=== PATIENT | male | born 1945 | race Caucasian/White ===

== ENCOUNTER 2017-01-13 09:17 | Inpatient (IN) | payer OTHER ==
--- NOTE | ~2017-01-13 | CN ---
Consultation Report [facility] [address] [place]. [address] NAME: LIO LAMBERT : 43 STATUS : ADM IN [facility]#: [id number] AGE: 71 ADM/REG DATE : 01/13/17 MR#: [id number] REPORT SERV DATE: 01/23/17 DICTATED BY: GURU ABRAMS DATE: 01/23/17 REPORT STATUS : Draft TRANSCRIBED BY: MODL DATE: 01/23/17 GI CONSULT DATE OF CONSULTATION: 01/23/2017 REASON FOR CONSULTATION: Regarding elevated liver tests. HISTORY OF PRESENT ILLNESS: This is a 71-year-old man who was admitted with abdominal pain. He was found to have acute pancreatitis and has been under supportive care. His liver tests were essentially normal on admission, but then have increased over the course of his hospital stay. Ultrasound did show gallbladder sludge. CT showed pancreatitis. He currently has intermittent epigastric discomfort. It is much better than previous. He is tolerating a soft diet. Stools are normal. No blood. No GERD or dysphagia. He has used alcohol for many years essentially since age 14. He had was very active until the 1980s when he underwent Alcoholics Anonymous and was sober for four years. He then started drinking again and has been drinking consistently right up until admission heavily. He has no known history of liver disease. ALLERGIES: NONE. MEDICATIONS AT HOME: Aspirin, Lipitor, Wellbutrin, Lasix, Prinivil, Lopressor, probiotics, Nitrostat, vitamin B12, vitamin D3, and turmeric. MEDICAL HISTORY: CAD with previous stent four years ago, prostate and bladder cancer, hypertension, history of hernia repair, cystoscopy, and stent. FAMILY HISTORY: Negative for GI malignancy. SOCIAL HISTORY: Heavy alcohol as above. No tobacco. REVIEW OF SYSTEMS: A complete review of systems was obtained and negative except that noted in the history of present illness. PHYSICAL EXAMINATION: VITAL SIGNS: He is currently afebrile. Temperature is 97.9, pulse 75, respirations 20, and blood pressure 140/65. HEENT: Sclerae icteric. Pharynx is pink without exudate. NECK: Supple without lymphadenopathy. LUNGS: Clear to auscultation bilaterally. HEART: Regular rate and rhythm. S1, S2 are heard without rubs or gallops. ABDOMEN: Diminished bowel sounds. Belly is soft and mildly distended. It is nontender and benign. EXTREMITIES: No pedal edema or rash. Consultation Report [place] [address] [place]. [address] NAME: LIO LAMBERT : 43 STATUS : ADM IN [facility]#: [id number] AGE: 71 ADM/REG DATE : 01/13/17 MR#: [id number] REPORT SERV DATE: 01/23/17 DICTATED BY: GURU ABRAMS DATE: 01/23/17 REPORT STATUS : Draft TRANSCRIBED BY: MODL DATE: 01/23/17 NEUROLOGIC: Alert and oriented without focal deficit. Muscle exam is nontender. DATA: White blood cell count 16.2, hematocrit 27.9, platelets 295. INR 1.2. MCV 92.7. BUN is 61, creatinine is 2.08, bilirubin 2.0, alkaline phosphatase 165, ALT is 160, AST is 199, lipase 848, iron percent 50, ferritin 4902, B12 of 5188. Hepatitis A, B, and C are negative. CT scan reviewed shows pancreatitis. Ultrasound of the gallbladder shows gallbladder sludge, but was otherwise negative. Chest x-ray shows left lower lobe pneumonia. Blood cultures negative. Urinalysis negative. IMPRESSION: 1. Elevated liver tests, likely multifactorial, suspect underlying alcoholic hepatitis, question choledocholithiasis. 2. Pancreatitis, question due to alcohol versus biliary sludge. 3. Acute kidney injury. 4. Left lower lobe pneumonia. RECOMMENDATIONS: 1. Continue supportive care and soft diet which he is tolerating. 2. Acid suppression daily. 3. Check liver serologies. 4. Check MRCP to evaluate common bile duct. CC/ASHANTI Guru Abrams M.D. / [id number] CC: Libby Lima M.D.
--- NOTE | ~2017-01-13 | DS ---
Discharge Summary [facility] [address] [place]. [address] NAME: LIO LAMBERT : 41 STATUS : DIS IN PAT#: [id number] AGE: 71 ADM/REG DATE : 01/13/17 MR#: [id number] REPORT SERV DATE: 01/24/17 DICTATED BY: EVANEMILY TRISTA DATE: 01/24/17 REPORT STATUS : Draft TRANSCRIBED BY: MODL DATE: 01/24/17 ADMISSION DATE: 01/13/2017 DISCHARGE DATE: 01/24/2017 DISCHARGE DIAGNOSES: 1. Acute pancreatitis with systemic inflammatory response syndrome, improved. 2. Acute kidney injury on chronic kidney disease, back to his normal kidney function. 3. Biliary sludge with obstructive jaundice, seen by Dr. Abrams here. MRCP was negative. ERCP was offered, but the patient declined to have inpatient ERCP, but followup with Dr. Abrams as an outpatient for possible further evaluation. 4. Alcohol abuse. The patient has a history of 50 years of drinking problem, but he mentioned that he is seriously considering stopping alcohol drink. 5. Diabetes mellitus. 6. Elevated liver function tests and ascites. The patient was recommended staying in the hospital, inpatient care, for paracentesis on Thursday, but he declined staying here over the weekend, but the patient will follow up as an outpatient for paracentesis, order is arranged. HISTORY OF PRESENT ILLNESS: This is a 71-year-old male patient, who came to the hospital with abdominal pain. Please see dictated H and P done by Dr. Mcbride. HOSPITAL COURSE: He was admitted to the hospital with acute pancreatitis, more likely from alcohol use, but also had evaluation for biliary etiology. He was found to have a septic picture with his pancreatitis and he was admitted in the IMCU. He was also found to have renal failure on top of his chronic kidney disease. He was treated aggressively with fluid resuscitation and with empiric antibiotics, and he recovered well. He was transferred out of the unit when his kidney function and lipase numbers were much improved. Neto Laws, nurse practitioner, and myself started to resume his case when he came out of the IMCU. At that time, he was on 4 L of nasal cannula and his kidney function was recovering back to his normal, and his calcium levels also improved. After he was transferred out of the unit, he was more prominent to have an elevated liver function test and elevated bilirubin. Initial ultrasound of the gallbladder showed biliary sludge, and current finding of elevated liver function tests with bilirubinemia, GI was consulted. Dr. Abrams evaluated this patient, who ordered MRCP. The MRCP did not show the sludge and showed no dilatation of the CBD, but the patient's LFTs and bilirubin are remaining the same level. Dr. Abrams offered ERCP on Thursday, but the patient requested going home during the weekend, but he surely will follow up with him as an outpatient. Dr. Abrams said it is a reasonable plan, so he was recommended to go home with close followup as an outpatient. During this resuscitation ICU stay, he gained some fluid level, was treated with intermittent IV diuretics and while he was transferred out of here, improved. He does not require home oxygen use; however, he developed ascites along with this hospitalization. I offered paracentesis as inpatient here on Thursday, again the patient declined inpatient procedure. However, he said he surely will follow up as an outpatient. Therefore, we are Discharge Summary [address] [address] NAME: LIO LAMBERT : 41 STATUS : DIS IN PAT#: [id number] AGE: 71 ADM/REG DATE : 01/13/17 MR#: [id number] REPORT SERV DATE: 01/24/17 DICTATED BY: EMILY CARLIN DATE: 01/24/17 REPORT STATUS : Draft TRANSCRIBED BY: ASHANTI DATE: 01/24/17 going to make an outpatient paracentesis order in two days, and the order is written. He is recovered and he said he is not going to drink any more. He is fully aware of current care plan and followup plan, and the patient will be discharged to home with followup plan with Dr. Abrams and outpatient paracentesis in two days. DISCHARGE MEDICATIONS: Aspirin 81 mg once a day, Lipitor 80 mg once at night, Wellbutrin 150 mg once a day, Lasix 40 mg twice a day, Lopressor 25 mg twice a day, Prinivil is on hold due to renal issue at the current point. Continue the probiotics and Nitrostat as needed. DISPOSITION: The patient is discharged to home with followup planned on Thursday with paracentesis at Dr. Abrams's office. TIME SPENT: More than 30 minutes on education and coordination. EKL/MODL Emily Carlin M.D. / [id number] CC: Libby Lima M.D. Chad Charapata, M.D.
--- NOTE | ~2017-01-13 | HP ---
History And Physical [address] [place]. [address] NAME: LIO LAMBERT : 41 STATUS : ADM IN [facility]#: [id number] AGE: 71 ADM/REG DATE : 01/13/17 MR#: [id number] REPORT SERV DATE: 01/20/17 DICTATED BY: DB BURGESS DATE: 01/20/17 REPORT STATUS : Draft TRANSCRIBED BY: ASHANTI DATE: 01/20/17 DATE OF ADMISSION: 01/13/2017 CHIEF COMPLAINT: Abdominal pain. HISTORY OF PRESENT ILLNESS: The patient is a very pleasant 71-year-old white male with a history of prostate bladder cancer and hypertension, who presented to the ER complaining of sudden onset of midepigastric abdominal pain, severe in nature, started initially last evening, continued in the morning and finally, he sought care. He had some nausea. He has never had pain like this before. He did not have any documented fevers. He did not notice any blood in his stool. PAST MEDICAL HISTORY: 1. CAD. 2. Status post PCI. 3. Prostate and bladder CA. 4. Hypertension. 5. History of hernia repair. PAST SURGICAL HISTORY: He has had a hernia repair and a cystoscopy and stenting related to his bladder cancer. FAMILY HISTORY: There is no history of chronic kidney disease or previous pancreatitis. SOCIAL HISTORY: He admits to drinking four 16-ounce beers per day. He is . His is at bedside. He has a distant history of tobacco use, but has not used recently. ALLERGIES: NO KNOWN DRUG ALLERGIES. HOME MEDICATIONS: Reviewed and attached. REVIEW OF SYSTEMS: A full ten-point review of systems obtained. Pertinent positives mentioned in the HPI. PHYSICAL EXAMINATION: VITAL SIGNS: BP 123/69, temperature was 97.3, pulse was in the 90s. Sats were 92%. GENERAL: Overweight white male, in no apparent distress. HEENT: Normocephalic, atraumatic. Throat is clear. NECK: Supple. HEART: Regular rate and rhythm. LUNGS: Grossly clear. ABDOMEN: Mildly distended and tender in all four quadrants, particularly in the epigastric region. EXTREMITIES: Warm and dry. SKIN: Intact without rash or lesion. NEURO: He is alert. He is oriented to person, place, and time. He moves all four History And Physical [address] [place]. [address] NAME: LIO LAMBERT : 43 STATUS : ADM IN [facility]#: [id number] AGE: 71 ADM/REG DATE : 01/13/17 MR#: [id number] REPORT SERV DATE: 01/20/17 DICTATED BY: DB BURGESS DATE: 01/20/17 REPORT STATUS : Draft TRANSCRIBED BY: ASHANTI DATE: 01/20/17 extremities appropriately. LABORATORY AND X-RAY: CBC: H and H are 15 and 44, white count 14.7, and platelets 269. Lactate is 3.7. CMP: Sodium 141, potassium 3.7, chloride 100, CO2 28. BUN and creatinine 22 and 1.78. Glucose 202. Alkaline phosphatase 165. Lipase 32,349. ALT is 29. Total bilirubin is 0.5. Alkaline phosphatase is 165. CT of the abdomen and pelvis showed hepatic steatosis and prominent peripancreatic fat stranding consistent with pancreatitis. Procalcitonin was 0.3. Lipid panel showed triglycerides of 147. Chest x-ray was essentially clear other than some new atelectasis in the posterior bibasilar areas. ASSESSMENT/PLAN: 1. Acute pancreatitis, certainly could be due to alcohol use, almost also consider gallstone disease and also hypertriglyceridemia; however, his triglycerides looked good. We would recommend doing additional imaging of the right upper quadrant ultrasound. We will keep him n.p.o., provide aggressive fluid resuscitation, IV analgesics, and antiemetics. Hopefully with supportive measures, he will improve. I did however beauty counselor the patient about the risk of developing severe pancreatitis. 2. Mild acute kidney injury, likely related to volume depletion and ongoing pancreatitis. We will hydrate aggressively overnight. Follow kidney function. Hold any antihypertensives and renal toxic drugs. 3. Alcohol abuse. We will place on alcohol withdrawal protocol, given the patient has history of drinking four 16-ounce beers daily just to make sure that he does not go through withdrawal, provide IV thiamine and frequent reassessment of his CIWA score. 4. Deep venous thrombosis prophylaxis with subcutaneous Lovenox and subcutaneous heparin. 5. Disposition, pending above. MARLEEN/ASHANTI Db Burgess M.D. / [id number] CC: Libby He M.D.
--- NOTE | ~2017-01-13 | CN ---
Consultation Report [facility] [address] [place]. [address] NAME: LIO LAMBERT : 41 STATUS : ADM IN [facility]#: [id number] AGE: 71 ADM/REG DATE : 01/13/17 MR#: [id number] REPORT SERV DATE: 01/15/17 DICTATED BY: DATE: REPORT STATUS : Draft TRANSCRIBED BY: MODL DATE: 01/15/17 CONSULTATION REPORT DATE OF CONSULTATION: REASON FOR CONSULTATION: Acute kidney injury. HISTORY OF PRESENT ILLNESS: Mr. Lambert is a 71-year-old white male with a history of prostate and bladder cancer as well as hypertension who presented to the emergency department with abdominal pain, was found to have acute pancreatitis. He does have some degree of CKD and it looks like his baseline creatinine is 1.2 to 1.5. He presented with a creatinine of 1.8 and it has steadily increased today up to 4.2. He has decreasing urine output. It is noted that over the last 48 hours he has had a significant drop in his blood pressure down into the 90s. He had a Zee placed right as we were seeing the patient and he has minimal urine output, and only had 200 over the last 24 hours. His calcium is low at 6.9. He has been getting IV fluids since admission with decrease in urine output. PAST MEDICAL HISTORY: Coronary artery disease, status post stent; prostate and bladder cancer, status post radiation therapy; hypertension; and hernia repair. FAMILY MEDICAL HISTORY: Negative for end-stage renal disease, but positive for prostate issues. SOCIAL HISTORY: He is , lives with . He was working here for the [employer]. He has a distant history of tobacco use, has quit. Drinks four beers per day. ALLERGIES: NONE. MEDICATIONS: At time of consultation; aspirin, Lipitor, Wellbutrin, folic acid, heparin, NovoLog, Lopressor, Theragran, Protonix, IV fluids at 125. REVIEW OF SYSTEMS: A 12-point review of systems was obtained, negative with the exception of that in the HPI. PHYSICAL EXAMINATION: VITAL SIGNS: Temp 97.5, blood pressure 102/52, pulse 82, respiratory rate 18, and O2 saturation is 92% on 3.5 liters. GENERAL: This is a pleasant, cooperative, overweight white male who is awake, alert, and oriented x3. In no acute distress. Answers question appropriately. HEENT: Normocephalic and atraumatic. Conjunctivae are clear. Sclerae are anicteric. Pupils are equal and round. Oral mucosa is moist. NECK: Thick. No lymphadenopathy. RESPIRATIONS: Even and unlabored, globally decreased. HEART: Rate is regular. No murmur, rub, or gallop. Consultation Report [place] [address] [place]. [address] NAME: LIO LAMBERT : 43 STATUS : ADM IN [facility]#: [id number] AGE: 71 ADM/REG DATE : 01/13/17 MR#: [id number] REPORT SERV DATE: 01/15/17 DICTATED BY: DATE: REPORT STATUS : Draft TRANSCRIBED BY: MODL DATE: 01/15/17 ABDOMEN: Obese. His bowel sounds are active. No masses. No hepatosplenomegaly. No CVA tenderness. BACK: Within normal limits. EXTREMITIES: He has no edema, cyanosis, or clubbing. SKIN: Warm, dry, and intact. No unusual rashes or skin lesions. NEURO: No focal deficits. Mood and affect, pleasant and appropriate. PERTINENT LABORATORY DATA AND X-RAY FINDINGS: Chest x-ray shows an early pneumonia. Sodium 140, potassium 4.5, chloride 105, CO2 of 22, BUN of 53, creatinine of 4.2, and calcium of 6.9. WBCs 13, H and H 13 and 40, and platelets 202,000. IMPRESSION: 1. Acute kidney injury. 2. Chronic kidney disease. 3. Hypotension. 4. Acute pancreatitis. PLAN: Acute kidney injury felt secondary to ATN from his decreased blood pressure in the setting of his pancreatitis. We will plan to discontinue current IV fluids, diuretic challenge. LUIS inhibitor was already held. Follow I's and O's. He has a Zee catheter in place. Urine studies. If we are seeing no improvement in urine output over the next 24 hours to 48, the patient may need renal replacement therapy, but there is no indication for such at this time. We will follow along with you. Avoid nephrotoxins as able. Further orders and recommendations pending clinical course. Thank you for your consultation. YIFAN/ASHANTI FLAKITA Hardin / [id number] CC: MD Ivet Valle II, M.D.
[2017-01-13 08:18] LABS: BASOPHILS 0.1 %; BASOPHILS ABSOLUTE 0.02 10/3/uL (0.0-0.16); EOSINOPHILS 0.1 %; EOSINOPHILS ABSOLUTE 0.02 10/3/uL (0.0-0.53); ER CBC TAT 0 Hrs 08 Mins; HEMATOCRIT 44.6 % (40.0-51.0); IMMATURE GRANULOCYTES ABSOLUTE 0.14 10/3/uL (0.0-0.11); LYMPHOCYTES 10.4 %; LYMPHOCYTES ABSOLUTE 1.52 10/3/uL (0.67-4.30); MANUAL DIFF NO %; MEAN CORPUS HGB CONC 33.6 g/dL (32.0-36.0); MEAN CORPUSCULAR HEMOGLOB 31.9 pg (26.0-34.0); MEAN CORPUSCULAR VOLUME 94.9 fL (80-100); MONOCYTES 6.1 %; MONOCYTES ABSOLUTE 0.89 10/3/uL (0.21-1.20); NEUTROPHILS 82.3 %; NEUTROPHILS ABSOLUTE 12.09 10/3/uL (2.02-8.40); PLATELET COUNT 269 10/3/uL (150-400); RBC DISTRIBUTION WIDTH 14.1 % (12.0-16.0); WHITE BLOOD CELLS 14.7 10/3/uL (4.5-10.5)
[2017-01-13 08:34] LABS: BUN (BLOOD UREA NITROGEN) 22 MG/DL (6-23); CALCIUM, SERUM 9.2 MG/DL (8.5-10.4); CHLORIDE, SERUM 100 MMOL/L (96-112); CO2 (CARBON DIOXIDE) 28 MMOL/L (24-34); CREATININE 1.78 MG/DL (0.70-1.30); GFR AFRICAN AMERICAN 43 ML/MIN (>=60); GFR NON AFRICAN AMERICAN 37 ML/MIN (>=60); POTASSIUM, SERUM 3.7 MMOL/L (3.5-5.3); SGOT(AST) 19 U/L (5-40); SGPT(ALT) 29 U/L (5-65); SODIUM, SERUM 141 MMOL/L (135-148); TOTAL BILIRUBIN 0.5 MG/DL (0-1.2); TOTAL PROTEIN 7.5 G/DL (6.0-8.5)
[2017-01-13 08:44] LABS: A/G RATIO 1.1 (0.7-1.9); ALKALINE PHOSPHATASE 165 U/L (45-117); GLOBULIN 3.5 G/DL (2.5-4.1); GLUCOSE, SERUM 202 MG/DL (60-99)
[~2017-01-13 09:17] MED LIST: ASA5GR PO; CELEXA40 MG PO; L40 PO; LIPITOR80 MG PO; TOPXL25 PO
[2017-01-13] MEDS ORDERED: LIPITOR80 MG PO (09:40)
[2017-01-13] MEDS ORDERED: L40 PO (09:41)
[2017-01-13] MEDS ORDERED: LOP25 PO (09:41)
[2017-01-13] MEDS ORDERED: PRIN5 PO (09:42)
[2017-01-13] MEDS ORDERED: ASAB PO (09:43)
[2017-01-13] MEDS ORDERED: VITAMIN B-12 PO (09:43)
[2017-01-13] MEDS ORDERED: VITAMIN D3 PO (09:44)
[2017-01-13] MEDS ORDERED: PROBIOTIC PO (09:45)
[2017-01-13] MEDS ORDERED: TUMERIC SUPPLEMENT PO (09:45)
[2017-01-13] MEDS ORDERED: NITROSTAT0.4 MG SL (09:51)
[2017-01-13] MEDS ORDERED: WELLSR150 PO (10:00)
[2017-01-13 15:17] LABS: CHOL/HDL RATIO(NOT ORDER) 4.2 (0-5)
[2017-01-13 16:03] LABS: PROCALCITONIN 0.3 ng/mL (<0.5)
[2017-01-13 22:10] LABS: ASCORBIC ACID (UR NOT ORDER) NEG (NEG); BILIRUBIN, URINE NEGATIVE (NEG); KETONE, URINE TRACE MG/DL (NEG); LEUKOCYTE ESTERASE(NOT OR NEG (NEG); WBC (NOT ORDERED) (RFLEX) 1 (0-5)
[2017-01-14 05:41] LABS: BASOPHILS 0.1 %; BASOPHILS ABSOLUTE 0.01 10/3/uL (0.0-0.16); EOSINOPHILS 0 %; HEMATOCRIT 45.2 % (40.0-51.0); HEMOGLOBIN 15.1 g/dL (13.6-17.8); IMMATURE GRANULOCYTES 0.4 %; IMMATURE GRANULOCYTES ABSOLUTE 0.06 10/3/uL (0.0-0.11); LYMPHOCYTES 6.1 %; LYMPHOCYTES ABSOLUTE 0.86 10/3/uL (0.67-4.30); MEAN CORPUS HGB CONC 33.4 g/dL (32.0-36.0); MEAN CORPUSCULAR HEMOGLOB 31.9 pg (26.0-34.0); MEAN CORPUSCULAR VOLUME 95.4 fL (80-100); MEAN PLATELET VOLUME 9.8 fL (9.2-13.0); MONOCYTES 7.6 %; MONOCYTES ABSOLUTE 1.07 10/3/uL (0.21-1.20); NEUTROPHILS 85.8 %; NEUTROPHILS ABSOLUTE 12.04 10/3/uL (2.02-8.40); PLATELET COUNT 236 10/3/uL (150-400); RBC DISTRIBUTION WIDTH 14.7 % (12.0-16.0); RED CELL COUNT 4.74 10/6/uL (4.7-6.1)
[2017-01-14 05:42] LABS: MANUAL DIFF NO %
[2017-01-14 05:59] LABS: A/G RATIO 0.9 (0.7-1.9); ALBUMIN 3.2 G/DL (3.5-5.0); ALKALINE PHOSPHATASE 125 U/L (45-117); BUN (BLOOD UREA NITROGEN) 36 MG/DL (6-23); CALCIUM, SERUM 7.7 MG/DL (8.5-10.4); CHLORIDE, SERUM 108 MMOL/L (96-112); CO2 (CARBON DIOXIDE) 23 MMOL/L (24-34); GFR AFRICAN AMERICAN 30 ML/MIN (>=60); GFR NON AFRICAN AMERICAN 26 ML/MIN (>=60); GLOBULIN 3.6 G/DL (2.5-4.1); GLUCOSE, SERUM 124 MG/DL (60-99); POTASSIUM, SERUM 4.9 MMOL/L (3.5-5.3); SGOT(AST) 18 U/L (5-40); SGPT(ALT) 23 U/L (5-65); SODIUM, SERUM 142 MMOL/L (135-148); TOTAL BILIRUBIN 0.7 MG/DL (0-1.2); TOTAL PROTEIN 6.8 G/DL (6.0-8.5)
[2017-01-15 06:23] LABS: BASOPHILS 0.1 %; BASOPHILS ABSOLUTE 0.01 10/3/uL (0.0-0.16); EOSINOPHILS 0 %; HEMATOCRIT 40.7 % (40.0-51.0); HEMOGLOBIN 13.4 g/dL (13.6-17.8); IMMATURE GRANULOCYTES 0.3 %; IMMATURE GRANULOCYTES ABSOLUTE 0.04 10/3/uL (0.0-0.11); LYMPHOCYTES 6.8 %; LYMPHOCYTES ABSOLUTE 0.88 10/3/uL (0.67-4.30); MEAN CORPUS HGB CONC 32.9 g/dL (32.0-36.0); MEAN CORPUSCULAR HEMOGLOB 31.9 pg (26.0-34.0); MEAN CORPUSCULAR VOLUME 96.9 fL (80-100); MONOCYTES 9.2 %; MONOCYTES ABSOLUTE 1.19 10/3/uL (0.21-1.20); NEUTROPHILS 83.6 %; NEUTROPHILS ABSOLUTE 10.85 10/3/uL (2.02-8.40); NUCLEATED RED BLOOD CELLS 0.2 /100WBC (0-0); PLATELET COUNT 210 10/3/uL (150-400)
[2017-01-15 06:24] LABS: MANUAL DIFF NO %
[2017-01-15 06:26] LABS: CHLORIDE, SERUM 105 MMOL/L (96-112); CO2 (CARBON DIOXIDE) 22 MMOL/L (24-34); GLUCOSE, SERUM 118 MG/DL (60-99); POTASSIUM, SERUM 4.5 MMOL/L (3.5-5.3); SODIUM, SERUM 140 MMOL/L (135-148)
[2017-01-15 06:30] LABS: BUN (BLOOD UREA NITROGEN) 53 MG/DL (6-23); CALCIUM, SERUM 6.9 MG/DL (8.5-10.4); CREATININE 4.21 MG/DL (0.70-1.30); GFR AFRICAN AMERICAN 15 ML/MIN (>=60); GFR NON AFRICAN AMERICAN 13 ML/MIN (>=60)
[2017-01-15 15:15] LABS: ASCORBIC ACID (UR NOT ORDER) NEG (NEG); BILIRUBIN, URINE NEGATIVE (NEG); KETONE, URINE NEGATIVE (NEG); LEUKOCYTE ESTERASE(NOT OR NEG (NEG); WBC (NOT ORDERED) (RFLEX) 6 (0-5)
[2017-01-16 07:15] LABS: BASOPHILS 0.1 %; BASOPHILS ABSOLUTE 0.01 10/3/uL (0.0-0.16); EOSINOPHILS 0.1 %; EOSINOPHILS ABSOLUTE 0.01 10/3/uL (0.0-0.53); HEMOGLOBIN 11.4 g/dL (13.6-17.8); IMMATURE GRANULOCYTES 0.4 %; IMMATURE GRANULOCYTES ABSOLUTE 0.04 10/3/uL (0.0-0.11); LYMPHOCYTES 5.6 %; LYMPHOCYTES ABSOLUTE 0.56 10/3/uL (0.67-4.30); MEAN CORPUSCULAR HEMOGLOB 32.3 pg (26.0-34.0); MEAN PLATELET VOLUME 9.7 fL (9.2-13.0); MONOCYTES 10.8 %; MONOCYTES ABSOLUTE 1.08 10/3/uL (0.21-1.20); PLATELET COUNT 187 10/3/uL (150-400); RBC DISTRIBUTION WIDTH 14.7 % (12.0-16.0); RED CELL COUNT 3.53 10/6/uL (4.7-6.1)
[2017-01-16 07:17] LABS: HEMATOCRIT 32.9 % (40.0-51.0); MEAN CORPUS HGB CONC 34.7 g/dL (32.0-36.0); MEAN CORPUSCULAR VOLUME 93.2 fL (80-100)
[2017-01-16 07:18] LABS: INTERNATIONAL NORMAL RATI 1.2 UNITS (-); MANUAL DIFF NO %; PROTIME (NOT ORD) 15.1 SEC (12.0-14.5)
[2017-01-16 07:25] LABS: ALBUMIN 3.2 G/DL (3.5-5.0); BUN (BLOOD UREA NITROGEN) 62 MG/DL (6-23); CALCIUM, SERUM 6.6 MG/DL (8.5-10.4); CHLORIDE, SERUM 101 MMOL/L (96-112); CO2 (CARBON DIOXIDE) 22 MMOL/L (24-34); CREATININE 4.53 MG/DL (0.70-1.30); GFR AFRICAN AMERICAN 14 ML/MIN (>=60); GFR NON AFRICAN AMERICAN 12 ML/MIN (>=60); GLUCOSE, SERUM 116 MG/DL (60-99); PHOSPHORUS, SERUM 2.8 MG/DL (2.5-4.5); POTASSIUM, SERUM 3.9 MMOL/L (3.5-5.3); SODIUM, SERUM 137 MMOL/L (135-148)
[2017-01-16 07:42] LABS: INSTRUMENT SERIAL # 11843; PCO2 (CO2 TENSION) 30 MMHG (35-45); PO2 (O2 TENSION) 52 MMHG (79-93); pH 7.45 (7.37-7.43)
[2017-01-16 07:43] LABS: ALLENS TEST Pos; BE (BASE EXCESS) -2.7 MEQ/L (0 +/- 2.5); CARBOXYHEMOGLOBIN 0.3 % (0-3); DEVICE NC; HCO3 (ACTUAL BICARBONATE) 20.4 MEQ/L (23-27); HEMOBLOGIN CONTENT 12.2 G/DL (14-18); METHEMOGLOBIN 0.5 % (0-3); O2 CONTENT 14.8 VOL% (18-24); OPERATOR ID 13624; SAMPLE Arterial
[2017-01-16 11:45] LABS: PROCALCITONIN 6.64 ng/mL (<0.5)
[2017-01-16 14:44] LABS: A/G RATIO 0.9 (0.7-1.9); ALBUMIN 3.3 G/DL (3.5-5.0); BUN (BLOOD UREA NITROGEN) 65 MG/DL (6-23); CALCIUM, SERUM 7.3 MG/DL (8.5-10.4); CHLORIDE, SERUM 102 MMOL/L (96-112); CO2 (CARBON DIOXIDE) 23 MMOL/L (24-34); CREATININE 4.64 MG/DL (0.70-1.30); GFR AFRICAN AMERICAN 13 ML/MIN (>=60); GFR NON AFRICAN AMERICAN 12 ML/MIN (>=60); GLOBULIN 3.5 G/DL (2.5-4.1); GLUCOSE, SERUM 114 MG/DL (60-99); POTASSIUM, SERUM 3.8 MMOL/L (3.5-5.3); SGOT(AST) 30 U/L (5-40); SGPT(ALT) 20 U/L (5-65); SODIUM, SERUM 137 MMOL/L (135-148); TOTAL PROTEIN 6.8 G/DL (6.0-8.5)
[2017-01-16 14:46] LABS: ALKALINE PHOSPHATASE 106 U/L (45-117); TOTAL BILIRUBIN 1.3 MG/DL (0-1.2)
[2017-01-17 05:09] LABS: ALBUMIN 3.4 G/DL (3.5-5.0); ALKALINE PHOSPHATASE 99 U/L (45-117); CHLORIDE, SERUM 99 MMOL/L (96-112); CO2 (CARBON DIOXIDE) 22 MMOL/L (24-34); GLUCOSE, SERUM 115 MG/DL (60-99); INDIRECT BILIRUBIN(NOT ORDER) 0.9 MG/DL (0.1-0.9); PHOSPHORUS, SERUM 3.4 MG/DL (2.5-4.5); POTASSIUM, SERUM 3.3 MMOL/L (3.5-5.3); SGOT(AST) 33 U/L (5-40); SGPT(ALT) 25 U/L (5-65); SODIUM, SERUM 135 MMOL/L (135-148); TOTAL BILIRUBIN 1.5 MG/DL (0-1.2); TOTAL PROTEIN 6.7 G/DL (6.0-8.5)
[2017-01-17 05:10] LABS: BUN (BLOOD UREA NITROGEN) 72 MG/DL (6-23); CALCIUM, SERUM 6.7 MG/DL (8.5-10.4); CREATININE 5.45 MG/DL (0.70-1.30); DIRECT BILIRUBIN 0.6 MG/DL (0.0-0.4); GFR AFRICAN AMERICAN 11 ML/MIN (>=60); GFR NON AFRICAN AMERICAN 10 ML/MIN (>=60)
[2017-01-17 05:11] LABS: BASOPHILS 0.1 %; BASOPHILS ABSOLUTE 0.01 10/3/uL (0.0-0.16); EOSINOPHILS 0.3 %; EOSINOPHILS ABSOLUTE 0.03 10/3/uL (0.0-0.53); HEMATOCRIT 30.6 % (40.0-51.0); HEMOGLOBIN 10.6 g/dL (13.6-17.8); LYMPHOCYTES 7.8 %; LYMPHOCYTES ABSOLUTE 0.75 10/3/uL (0.67-4.30); MEAN CORPUS HGB CONC 34.6 g/dL (32.0-36.0); MEAN CORPUSCULAR HEMOGLOB 31.9 pg (26.0-34.0); MEAN CORPUSCULAR VOLUME 92.2 fL (80-100); MEAN PLATELET VOLUME 9.8 fL (9.2-13.0); MONOCYTES 10.1 %; MONOCYTES ABSOLUTE 0.97 10/3/uL (0.21-1.20); NEUTROPHILS 80.7 %; NEUTROPHILS ABSOLUTE 7.74 10/3/uL (2.02-8.40); PLATELET COUNT 202 10/3/uL (150-400); RBC DISTRIBUTION WIDTH 14.6 % (12.0-16.0); RED CELL COUNT 3.32 10/6/uL (4.7-6.1); WHITE BLOOD CELLS 9.6 10/3/uL (4.5-10.5)
[2017-01-17 05:12] LABS: MANUAL DIFF NO %
[2017-01-18 04:39] LABS: HEMOGLOBIN 9.4 g/dL (13.6-17.8); MEAN CORPUS HGB CONC 35.1 g/dL (32.0-36.0); MEAN CORPUSCULAR HEMOGLOB 31.9 pg (26.0-34.0); MEAN CORPUSCULAR VOLUME 90.8 fL (80-100); MEAN PLATELET VOLUME 9.6 fL (9.2-13.0); PLATELET COUNT 178 10/3/uL (150-400); RBC DISTRIBUTION WIDTH 15.3 % (12.0-16.0); RED CELL COUNT 2.95 10/6/uL (4.7-6.1); WHITE BLOOD CELLS 9.1 10/3/uL (4.5-10.5)
[2017-01-18 04:49] LABS: ALBUMIN 3.3 G/DL (3.5-5.0); ALKALINE PHOSPHATASE 101 U/L (45-117); CALCIUM, SERUM 7.2 MG/DL (8.5-10.4); CHLORIDE, SERUM 100 MMOL/L (96-112); CO2 (CARBON DIOXIDE) 19 MMOL/L (24-34); DIRECT BILIRUBIN 0.5 MG/DL (0.0-0.4); GLUCOSE, SERUM 120 MG/DL (60-99); INDIRECT BILIRUBIN(NOT ORDER) 0.8 MG/DL (0.1-0.9); POTASSIUM, SERUM 3.5 MMOL/L (3.5-5.3); SGOT(AST) 40 U/L (5-40); SGPT(ALT) 35 U/L (5-65); SODIUM, SERUM 135 MMOL/L (135-148); TOTAL BILIRUBIN 1.3 MG/DL (0-1.2); TOTAL PROTEIN 6.3 G/DL (6.0-8.5)
[2017-01-18 04:51] LABS: HEMATOCRIT 26.8 % (40.0-51.0); MANUAL DIFF YES %
[2017-01-18 04:53] LABS: BUN (BLOOD UREA NITROGEN) 78 MG/DL (6-23); CREATININE 6.18 MG/DL (0.70-1.30); GFR AFRICAN AMERICAN 10 ML/MIN (>=60); GFR NON AFRICAN AMERICAN 8 ML/MIN (>=60); PHOSPHORUS, SERUM 4.8 MG/DL (2.5-4.5)
[2017-01-18 05:55] LABS: BAND NEUTROPHILS 16 %; EOSINOPHILS 2 %; EOSINOPHILS ABSOLUTE (CALC) 0.18 10/3/uL (0.0-0.53); IMMATURE GRANS ABSOLUTE (CALC) 0.18 10/3/uL (0.0-0.11); LYMPHOCYTES 5 %; LYMPHOCYTES ABSOLUTE (CALC) 0.46 10/3/uL (0.67-4.30); METAMYELOCYTES 2 %; MONOCYTES 11 %; NEUTROPHILS ABSOLUTE (CALC) 7.28 10/3/uL (2.02-8.40); PLATELET ESTIMATE ADQ (ADEQUATE); POLYCHROMASIA 1+ (2-5/OIF) (0-1/OIF); SEGMENTED NEUTROPHIL (0) 64 %; TEARDROP SHAPED RBCS OCC (0-2/OIF); TOTAL NUCLEATED CELLS 100; TOXIC GRANULATION 1+; VACUOLATED NEUTROPHILES OCC
[2017-01-19 05:53] LABS: BASOPHILS 0.1 %; BASOPHILS ABSOLUTE 0.02 10/3/uL (0.0-0.16); EOSINOPHILS 0.9 %; EOSINOPHILS ABSOLUTE 0.12 10/3/uL (0.0-0.53); HEMOGLOBIN 10.6 g/dL (13.6-17.8); IMMATURE GRANULOCYTES 2.6 %; IMMATURE GRANULOCYTES ABSOLUTE 0.36 10/3/uL (0.0-0.11); LYMPHOCYTES 3.5 %; LYMPHOCYTES ABSOLUTE 0.49 10/3/uL (0.67-4.30); MEAN CORPUS HGB CONC 34.9 g/dL (32.0-36.0); MEAN CORPUSCULAR HEMOGLOB 31.7 pg (26.0-34.0); MEAN PLATELET VOLUME 9.7 fL (9.2-13.0); MONOCYTES 7.6 %; MONOCYTES ABSOLUTE 1.07 10/3/uL (0.21-1.20); NEUTROPHILS 85.3 %; RBC DISTRIBUTION WIDTH 15.3 % (12.0-16.0); RED CELL COUNT 3.34 10/6/uL (4.7-6.1)
[2017-01-19 06:06] LABS: HEMATOCRIT 30.4 % (40.0-51.0); MANUAL DIFF NO %; PLATELET COUNT 244 10/3/uL (150-400); WHITE BLOOD CELLS 14.1 10/3/uL (4.5-10.5)
[2017-01-19 06:17] LABS: A/G RATIO 0.9 (0.7-1.9); CHLORIDE, SERUM 103 MMOL/L (96-112); CO2 (CARBON DIOXIDE) 16 MMOL/L (24-34); GLOBULIN 3.4 G/DL (2.5-4.1); GLUCOSE, SERUM 122 MG/DL (60-99); POTASSIUM, SERUM 3.3 MMOL/L (3.5-5.3); SGOT(AST) 64 U/L (5-40); SGPT(ALT) 47 U/L (5-65); SODIUM, SERUM 138 MMOL/L (135-148); TOTAL BILIRUBIN 1.5 MG/DL (0-1.2); TOTAL PROTEIN 6.4 G/DL (6.0-8.5)
[2017-01-19 06:18] LABS: ALKALINE PHOSPHATASE 119 U/L (45-117); BUN (BLOOD UREA NITROGEN) 82 MG/DL (6-23); GFR AFRICAN AMERICAN 11 ML/MIN (>=60); GFR NON AFRICAN AMERICAN 9 ML/MIN (>=60)
[2017-01-20 04:40] LABS: HEMATOCRIT 28.2 % (40.0-51.0); MANUAL DIFF YES %; MEAN CORPUS HGB CONC 35.5 g/dL (32.0-36.0); MEAN CORPUSCULAR HEMOGLOB 31.8 pg (26.0-34.0); MEAN CORPUSCULAR VOLUME 89.8 fL (80-100); MEAN PLATELET VOLUME 9.5 fL (9.2-13.0); PLATELET COUNT 258 10/3/uL (150-400); RBC DISTRIBUTION WIDTH 15.3 % (12.0-16.0); RED CELL COUNT 3.14 10/6/uL (4.7-6.1); WHITE BLOOD CELLS 15.8 10/3/uL (4.5-10.5)
[2017-01-20 04:51] LABS: ALBUMIN 2.5 G/DL (3.5-5.0); CALCIUM, SERUM 8.1 MG/DL (8.5-10.4); CHLORIDE, SERUM 108 MMOL/L (96-112); CO2 (CARBON DIOXIDE) 19 MMOL/L (24-34); GLUCOSE, SERUM 137 MG/DL (60-99); POTASSIUM, SERUM 3.1 MMOL/L (3.5-5.3); SODIUM, SERUM 143 MMOL/L (135-148)
[2017-01-20 04:53] LABS: BUN (BLOOD UREA NITROGEN) 74 MG/DL (6-23); CREATININE 4.01 MG/DL (0.70-1.30); GFR AFRICAN AMERICAN 16 ML/MIN (>=60); GFR NON AFRICAN AMERICAN 14 ML/MIN (>=60); PHOSPHORUS, SERUM 3.6 MG/DL (2.5-4.5)
[2017-01-20 05:16] LABS: BAND NEUTROPHILS 15 %; EOSINOPHILS 1 %; EOSINOPHILS ABSOLUTE (CALC) 0.16 10/3/uL (0.0-0.53); IMMATURE GRANS ABSOLUTE (CALC) 0.16 10/3/uL (0.0-0.11); LYMPHOCYTES 1 %; LYMPHOCYTES ABSOLUTE (CALC) 0.16 10/3/uL (0.67-4.30); METAMYELOCYTES 1 %; MONOCYTES 2 %; MONOCYTES ABSOLUTE (CALC) 0.32 10/3/uL (0.21-1.20); NEUTROPHILS ABSOLUTE (CALC) 15.01 10/3/uL (2.02-8.40); PLATELET ESTIMATE ADQ (ADEQUATE); SEGMENTED NEUTROPHIL (0) 80 %; TOTAL NUCLEATED CELLS 100
[2017-01-20 05:17] LABS: SPHEROCYTES OCC (0-2/OIF)
[2017-01-21 04:45] LABS: HEMATOCRIT 29.6 % (40.0-51.0); HEMOGLOBIN 10.5 g/dL (13.6-17.8); MEAN CORPUS HGB CONC 35.5 g/dL (32.0-36.0); MEAN CORPUSCULAR VOLUME 90.2 fL (80-100); MEAN PLATELET VOLUME 9.2 fL (9.2-13.0); PLATELET COUNT 281 10/3/uL (150-400); RBC DISTRIBUTION WIDTH 15.3 % (12.0-16.0); RED CELL COUNT 3.28 10/6/uL (4.7-6.1); WHITE BLOOD CELLS 16.6 10/3/uL (4.5-10.5)
[2017-01-21 04:48] LABS: MANUAL DIFF YES %
[2017-01-21 04:57] LABS: ALBUMIN 2.3 G/DL (3.5-5.0); CALCIUM, SERUM 8.3 MG/DL (8.5-10.4); CHLORIDE, SERUM 109 MMOL/L (96-112); CO2 (CARBON DIOXIDE) 21 MMOL/L (24-34); GFR AFRICAN AMERICAN 25 ML/MIN (>=60); GFR NON AFRICAN AMERICAN 22 ML/MIN (>=60); GLUCOSE, SERUM 143 MG/DL (60-99); PHOSPHORUS, SERUM 2.8 MG/DL (2.5-4.5); POTASSIUM, SERUM 3.5 MMOL/L (3.5-5.3); SODIUM, SERUM 143 MMOL/L (135-148)
[2017-01-21 05:02] LABS: BUN (BLOOD UREA NITROGEN) 61 MG/DL (6-23); CREATININE 2.75 MG/DL (0.70-1.30)
[2017-01-21 05:28] LABS: BAND NEUTROPHILS 5 %; EOSINOPHILS 1 %; EOSINOPHILS ABSOLUTE (CALC) 0.17 10/3/uL (0.0-0.53); LYMPHOCYTES 2 %; LYMPHOCYTES ABSOLUTE (CALC) 0.33 10/3/uL (0.67-4.30); MONOCYTES 6 %; NEUTROPHILS ABSOLUTE (CALC) 15.11 10/3/uL (2.02-8.40); PLATELET ESTIMATE ADQ (ADEQUATE); RBC MORPHOLOGY NORM (NORMAL); SEGMENTED NEUTROPHIL (0) 86 %; TOTAL NUCLEATED CELLS 100
[2017-01-21 06:37] LABS: PROCALCITONIN 2.87 ng/mL (<0.5)
[2017-01-22 07:12] LABS: HEMATOCRIT 30.8 % (40.0-51.0); HEMOGLOBIN 10.4 g/dL (13.6-17.8); MEAN CORPUS HGB CONC 33.8 g/dL (32.0-36.0); MEAN CORPUSCULAR VOLUME 91.9 fL (80-100); MEAN PLATELET VOLUME 9.7 fL (9.2-13.0); PLATELET COUNT 298 10/3/uL (150-400); RBC DISTRIBUTION WIDTH 15.7 % (12.0-16.0); RED CELL COUNT 3.35 10/6/uL (4.7-6.1)
[2017-01-22 07:15] LABS: MANUAL DIFF YES %
[2017-01-22 07:26] LABS: ALBUMIN 2.4 G/DL (3.5-5.0); BUN (BLOOD UREA NITROGEN) 56 MG/DL (6-23); CALCIUM, SERUM 8.5 MG/DL (8.5-10.4); CHLORIDE, SERUM 107 MMOL/L (96-112); CO2 (CARBON DIOXIDE) 21 MMOL/L (24-34); CREATININE 2.19 MG/DL (0.70-1.30); GFR AFRICAN AMERICAN 33 ML/MIN (>=60); GFR NON AFRICAN AMERICAN 29 ML/MIN (>=60); GLUCOSE, SERUM 170 MG/DL (60-99); PHOSPHORUS, SERUM 2.5 MG/DL (2.5-4.5); POTASSIUM, SERUM 3.8 MMOL/L (3.5-5.3); SODIUM, SERUM 141 MMOL/L (135-148)
[2017-01-22 10:45] LABS: BAND NEUTROPHILS 20 %; BASOPHILS 1 %; BASOPHILS ABSOLUTE (CALC) 0.18 10/3/uL (0.0-0.16); EOSINOPHILS 4 %; EOSINOPHILS ABSOLUTE (CALC) 0.72 10/3/uL (0.0-0.53); LYMPHOCYTES 1 %; LYMPHOCYTES ABSOLUTE (CALC) 0.18 10/3/uL (0.67-4.30); MONOCYTES 4 %; MONOCYTES ABSOLUTE (CALC) 0.72 10/3/uL (0.21-1.20); PLATELET ESTIMATE ADQ (ADEQUATE); POLYCHROMASIA 1+ (2-5/OIF) (0-1/OIF); SEGMENTED NEUTROPHIL (0) 70 %; TOTAL NUCLEATED CELLS 100; TOXIC GRANULATION 1+
[2017-01-22 15:17] LABS: SGOT(AST) 193 U/L (5-40); SGPT(ALT) 149 U/L (5-65); TOTAL PROTEIN 6.6 G/DL (6.0-8.5)
[2017-01-22 15:18] LABS: ALKALINE PHOSPHATASE 164 U/L (45-117); DIRECT BILIRUBIN 0.8 MG/DL (0.0-0.4); INDIRECT BILIRUBIN(NOT ORDER) 1.2 MG/DL (0.1-0.9)
[2017-01-22 17:04] LABS: WBC (NOT ORDERED) (RFLEX) 0 (0-5)
[2017-01-22 17:32] LABS: ASCORBIC ACID (UR NOT ORDER) NEG (NEG); BILIRUBIN, URINE NEGATIVE (NEG); KETONE, URINE NEGATIVE (NEG); LEUKOCYTE ESTERASE(NOT OR NEG (NEG)
[2017-01-23 06:01] LABS: INTERNATIONAL NORMAL RATI 1.2 UNITS (-); PROTIME (NOT ORD) 15.3 SEC (12.0-14.5)
[2017-01-23 06:02] LABS: BASOPHILS 0.1 %; BASOPHILS ABSOLUTE 0.01 10/3/uL (0.0-0.16); EOSINOPHILS 1.3 %; EOSINOPHILS ABSOLUTE 0.21 10/3/uL (0.0-0.53); HEMATOCRIT 27.9 % (40.0-51.0); HEMOGLOBIN 9.3 g/dL (13.6-17.8); IMMATURE GRANULOCYTES 0.9 %; IMMATURE GRANULOCYTES ABSOLUTE 0.15 10/3/uL (0.0-0.11); LYMPHOCYTES 3.2 %; LYMPHOCYTES ABSOLUTE 0.51 10/3/uL (0.67-4.30); MEAN CORPUS HGB CONC 33.3 g/dL (32.0-36.0); MEAN CORPUSCULAR HEMOGLOB 30.9 pg (26.0-34.0); MEAN CORPUSCULAR VOLUME 92.7 fL (80-100); MEAN PLATELET VOLUME 9.8 fL (9.2-13.0); MONOCYTES 7.6 %; MONOCYTES ABSOLUTE 1.23 10/3/uL (0.21-1.20); NEUTROPHILS 86.9 %; NEUTROPHILS ABSOLUTE 14.05 10/3/uL (2.02-8.40); PLATELET COUNT 295 10/3/uL (150-400); RBC DISTRIBUTION WIDTH 15.9 % (12.0-16.0); RED CELL COUNT 3.01 10/6/uL (4.7-6.1); WHITE BLOOD CELLS 16.2 10/3/uL (4.5-10.5)
[2017-01-23 06:05] LABS: MANUAL DIFF NO %
[2017-01-23 06:16] LABS: A/G RATIO 0.6 (0.7-1.9); ALBUMIN 2.2 G/DL (3.5-5.0); ALKALINE PHOSPHATASE 165 U/L (45-117); CALCIUM, SERUM 8.3 MG/DL (8.5-10.4); CHLORIDE, SERUM 106 MMOL/L (96-112); CO2 (CARBON DIOXIDE) 21 MMOL/L (24-34); CREATININE 2.08 MG/DL (0.70-1.30); GFR AFRICAN AMERICAN 36 ML/MIN (>=60); GFR NON AFRICAN AMERICAN 31 ML/MIN (>=60); GLOBULIN 3.8 G/DL (2.5-4.1); POTASSIUM, SERUM 3.8 MMOL/L (3.5-5.3); SGOT(AST) 199 U/L (5-40); SGPT(ALT) 160 U/L (5-65); SODIUM, SERUM 141 MMOL/L (135-148)
[2017-01-23 06:19] LABS: BUN (BLOOD UREA NITROGEN) 61 MG/DL (6-23)
[2017-01-23 06:20] LABS: GLUCOSE, SERUM 100 MG/DL (60-99); PHOSPHORUS, SERUM 3.7 MG/DL (2.5-4.5)
[2017-01-23 12:38] LABS: % IRON SAT 50 % (20-50); FERRITIN 4902 NG/ML (26-388); IRON BINDING CAPACITY 150 MCG/DL (250-450); IRON, SERUM 75 MCG/DL (35-150)
[2017-01-23 12:56] LABS: HEPATITIS B SURFACE ANTIGEN NON-REACTIVE (NON-REACT)
[2017-01-23 13:24] LABS: HEPATITIS B CORE AB IGM NON-REACTIVE (NON-REAC); HEPATITIS C ANTIBODY NON-REACTIVE (NON-REACT)
[2017-01-23 13:26] LABS: HEP A ANTIBODY IGM NON-REACTIVE (NON-REACT)
[2017-01-24 05:37] LABS: A/G RATIO 0.5 (0.7-1.9); ALBUMIN 2.2 G/DL (3.5-5.0); CALCIUM, SERUM 8.3 MG/DL (8.5-10.4); CHLORIDE, SERUM 105 MMOL/L (96-112); CO2 (CARBON DIOXIDE) 21 MMOL/L (24-34); CREATININE 2.01 MG/DL (0.70-1.30); GFR AFRICAN AMERICAN 37 ML/MIN (>=60); GFR NON AFRICAN AMERICAN 32 ML/MIN (>=60); GLOBULIN 4.3 G/DL (2.5-4.1); POTASSIUM, SERUM 3.8 MMOL/L (3.5-5.3); SGOT(AST) 176 U/L (5-40); SGPT(ALT) 158 U/L (5-65); SODIUM, SERUM 138 MMOL/L (135-148); TOTAL BILIRUBIN 2.1 MG/DL (0-1.2); TOTAL PROTEIN 6.5 G/DL (6.0-8.5)
[2017-01-24 05:41] LABS: ALKALINE PHOSPHATASE 184 U/L (45-117); BUN (BLOOD UREA NITROGEN) 57 MG/DL (6-23); GLUCOSE, SERUM 124 MG/DL (60-99)
[2017-01-24 05:51] LABS: HEMATOCRIT 28.4 % (40.0-51.0); MEAN CORPUSCULAR HEMOGLOB 32.3 pg (26.0-34.0); MEAN CORPUSCULAR VOLUME 91.6 fL (80-100); MEAN PLATELET VOLUME 9.4 fL (9.2-13.0); PLATELET COUNT 308 10/3/uL (150-400); RBC DISTRIBUTION WIDTH 15.6 % (12.0-16.0); WHITE BLOOD CELLS 12.9 10/3/uL (4.5-10.5)
[2017-01-24 06:04] LABS: MANUAL DIFF YES %; MEAN CORPUS HGB CONC 35.2 g/dL (32.0-36.0)
[2017-01-24 06:35] LABS: BAND NEUTROPHILS 9 %; BASOPHILS 1 %; BASOPHILS ABSOLUTE (CALC) 0.13 10/3/uL (0.0-0.16); EOSINOPHILS 1 %; EOSINOPHILS ABSOLUTE (CALC) 0.13 10/3/uL (0.0-0.53); LYMPHOCYTES 4 %; LYMPHOCYTES ABSOLUTE (CALC) 0.52 10/3/uL (0.67-4.30); MONOCYTES 4 %; MONOCYTES ABSOLUTE (CALC) 0.52 10/3/uL (0.21-1.20); NEUTROPHILS ABSOLUTE (CALC) 11.61 10/3/uL (2.02-8.40); PLATELET ESTIMATE ADQ (ADEQUATE); RBC MORPHOLOGY NORM (NORMAL); SEGMENTED NEUTROPHIL (0) 81 %; TOTAL NUCLEATED CELLS 100
[2017-01-26 06:27] LABS: CERULOPLASMIN 31 mg/dL (7-220)
[2017-01-26 11:05] LABS: ANA TITER <1:40 TITER
[2017-01-27 11:40] LABS: SMOOTH MUSCLE ANTIBODIES Negative (NEG)
[2017-01-28 19:31] LABS: ALPHA-1-ANTITRYPSIN 355 mg/dL (90-200)
[2017-06-04] MEDS ORDERED: TOPXL25 PO (10:44)
[2017-06-04] MEDS ORDERED: LEXAPRO20 PO (10:46)
[2017-06-04] MEDS ORDERED: Z300 PO (10:47)
[2017-06-05] MEDS ORDERED: MAGOX4 PO (11:07)
[2017-06-05] MEDS ORDERED: PROBIOTIC PO (11:08)
[2017-06-05] MEDS ORDERED: ATV.5 PO (11:08)
== END 2017-01-24 16:29 | disposition home or self-care (01) | DRG 871 ==
LOC: ER 09:17 → 5SO 10:20 → IMCU 01-16 13:09 → 7NO 01-21 22:16
PROVIDERS: Hospitalist; Internal Medicine; Internal Medicine Gastroenterology; Internal Medicine Nephrology; Nurse Practitioner; Nurse Practitioner Gerontology
PROC: 5A09357 Assistance with Respiratory Ventilation, Less than 24 Consecutive Hours, Continuous Positive Airway Pressure (ICD-10-PCS; principal; 2017-01-16)
DX: A41.9 Sepsis, unspecified organism (principal); J96.01 Acute respiratory failure with hypoxia; N17.0 Acute kidney failure with tubular necrosis; K83.1 Obstruction of bile duct; R18.8 Other ascites; E66.01 Morbid (severe) obesity due to excess calories; E83.51 Hypocalcemia; K85.20 Alcohol induced acute pancreatitis without necrosis or infection; K70.0 Alcoholic fatty liver; E03.9 Hypothyroidism, unspecified; N18.9 Chronic kidney disease, unspecified; F10.10 Alcohol abuse, uncomplicated; E11.9 Type 2 diabetes mellitus without complications; Z79.82 Long term (current) use of aspirin; Z68.39 Body mass index [BMI] 39.0-39.9, adult; Z85.46 Personal history of malignant neoplasm of prostate; Z85.51 Personal history of malignant neoplasm of bladder; Z79.4 Long term (current) use of insulin
CPT/HCPCS: 36558; 36600; 71010; 71020; 74000; 74176; 74181; 76705; 80048; 80053; 80061; 80069; 80074; 80076; 80202; 81001; 82103; 82104; 82150; 82330; 82390; 82570; 82607; 82728; 82805; 82962; 83036; 83540; 83550; 83605; 83690; 83735; 83880; 84100; 84132; 84145; 84300; 85025; 85610; 86039; 86255; 87040; 87493; 87493-59; 87641; 94640; 94660; 96374; 97162-GP; 99285; A9270-GY; C8929; C9113; J0610; J0692; J0885; J1170; J1205; J2405; J2550; J2765; J3370; J3411; P9047; Q9957

== ENCOUNTER 2017-01-27 07:28 | Inpatient (IN) | payer OTHER ==
--- NOTE | ~2017-01-27 | HP ---
History And Physical [place] [id number] [facility] [place]. [address] NAME: LIO LAMBERT : 41 STATUS : ADM Jose PAT#: [id number] AGE: 71 ADM/REG DATE : 01/27/17 MR#: [id number] REPORT SERV DATE: 01/27/17 DICTATED BY: Tara HOLLAND DATE: 01/27/17 REPORT STATUS : Draft TRANSCRIBED BY: MODL DATE: 01/27/17 DATE OF ADMISSION: 01/27/2017 HISTORY OF PRESENT ILLNESS: The patient is a 71-year-old male patient, who was recently admitted to [facility] on January 13 through January 24 after presenting with acute pancreatitis in the setting of acute kidney injury. The patient's renal function returned to its baseline and his abdominal symptoms had improved to the point that he could have the remainder of his evaluation as an outpatient. He had an MRCP that was nondiagnostic and they were planning to do an ERCP, with the patient wanted to go home and consider having it as an outpatient. They had also scheduled an outpatient ultrasound-guided paracentesis for today. The patient showed up to Interventional Radiology for his procedure, but two things happened; one, there was not enough fluid seen on the ultrasound to merit the procedure and the second, the patient was short of breath requiring 3 L of nasal cannula O2 to keep his sats greater than 90. He had not been on oxygen at home. Because of his hypoxemia, the patient's was uncomfortable with him going home. After long discussion with the patient and his family, he was agreeable to 23-hour observation stay to further evaluate his shortness of breath. PAST MEDICAL HISTORY: Includes the recent pancreatitis of unclear etiology, chronic kidney disease stage 4, type 2 diabetes, and history of bladder and prostate cancer. SOCIAL HISTORY: Shows good supportive family. Ongoing alcohol use with roughly four beers a day. FAMILY HISTORY: Positive for hypertension and heart disease. REVIEW OF SYSTEMS: The patient has been having some fever and chills intermittently since discharge. He has denied any bright red blood per rectum or melena. He has had no dysuria. He has had no overt shortness of breath that he will admit to, though his says that his work of breathing has been noticeably labored since he went home. He has had no luca chest pain. No nausea, no vomiting. No abdominal symptoms. Remainder of the fourteen-point review of systems was negative except as stated above. PHYSICAL EXAMINATION: GENERAL: This is a well-developed, well-nourished male, conversant, in no distress. HEENT: Pupils are equal, round, and reactive to light. Extraocular muscles are intact. Oropharynx is clear. NECK: Without JVD, thyromegaly, or bruit. LUNGS: With diminished breath sounds in the bases. No accessory muscle use. HEART: Regular without murmur or gallop. ABDOMEN: Obese, soft. Positive bowel sounds without organomegaly or mass. EXTREMITIES: Trace edema. Pulses are +2. SKIN: Without rash or ecchymotic area. Joints without synovitis, effusion, or deformity. NEURO: Cranial nerves grossly intact. Motor exam is nonfocal. Sensation is unremarkable. Gait was not assessed. History And Physical [address] [address] NAME: LIO LAMBERT : 41 STATUS : ADM Jose PAT#: [id number] AGE: 71 ADM/REG DATE : 01/27/17 MR#: [id number] REPORT SERV DATE: 01/27/17 DICTATED BY: Tara HOLLAND DATE: 01/27/17 REPORT STATUS : Draft TRANSCRIBED BY: ASHANTI DATE: 01/27/17 LABORATORY DATA: All data are currently pending. IMPRESSION: A 71-year-old male with complex medical history, now with hypoxemia of uncertain etiology. PLAN: A 23-hour observation on telemetry; electrolyte replacement guidelines; full code status; routine vitals; continue O2 at 3 L nasal cannula; cardiac diet with fluid and sodium restriction. Data to include CBC, PT, PTT, D-dimer, CMP, amylase lipase, magnesium, procalcitonin, and urinalysis. We will check blood cultures x2 if temp greater than 100.5. Portable chest x- ray, DVT prophylaxis with unfractionated heparin. Reasonable pain and nausea control will be offered, level 2 subcu sliding scale insulin to augment diabetic control. Continue his current home medications without addition or deletions. Further recommendations for treatment pending review of pending data, pending x-ray results, observation of his clinical course. If the patient's entire workup is normal, we will consider discharge home tomorrow with home O2 if he qualifies for ongoing evaluation as previously scheduled by Gastroenterology; however, if his x-ray or labs are abnormal, he may require conversion to inpatient stay for ongoing inpatient evaluation and treatment. Family is aware of the possibility that he may not go home tomorrow depending on the results of his initial testing. KEN/ASHANTI Tara Holland M.D. / [id number] CC: Libby He M.D.
--- NOTE | ~2017-01-27 | DS ---
Discharge Summary [place] [id number] [facility] [place]. [address] NAME: LIO LAMBERT : 41 STATUS : DIS Jose PAT#: [id number] AGE: 71 ADM/REG DATE : 01/27/17 MR#: [id number] REPORT SERV DATE: 01/30/17 DICTATED BY: NIRAV SHEPHERD DATE: 01/29/17 REPORT STATUS : Draft TRANSCRIBED BY: MODL DATE: 01/29/17 ADMISSION DATE: 01/27/2017 DISCHARGE DATE: 01/29/2017 PRINCIPAL DIAGNOSES: 1. Acute hypoxemic respiratory failure due to pleural effusion, due to volume overload, due to hypoalbuminemia, due to recent alcoholic hepatitis. 2. Hypoxemia, also due to atelectasis, due to diaphragmatic elevation, due to pancreatic pseudocyst, due to recent severe pancreatitis. SECONDARY DIAGNOSES: Includes: 1. Anemia of chronic disease. 2. Chronic kidney disease. 3. Hypertension. 4. Type 2 diabetes. HISTORY OF PRESENT ILLNESS: Please see Dr. Holland's dictation on 01/27/2017. HOSPITAL COURSE: The patient admitted with hypoxemia requiring 3 L of nasal cannula and found to have atelectasis, left side greater than right with a small pleural effusion. The patient's pleural effusion was found to be freely mobile but relatively small. The patient was put on a diuretic infusion with excellent urinary output and improvement in oxygen saturations as well as improvement in lower extremity edema. Atelectasis improved somewhat with incentive spirometry. In any event, the patient's saturations did improve. In addition, he did have to receive some blood transfusion during hospitalization but iron levels were found to be not deficient. Guaiacs were still pending. He received desferrioxamine during the blood transfusion to reduce the risk of iron overload. Liver function tests were stable. The patient had not resumed any alcohol abuse or consumption whatsoever. He had no evidence of delirium tremens, able to be released by 01/29/2017. He was given a prescription for pancrelipase to take with meals in light of the pseudocyst. His Lasix was changed to Demadex with magnesium and potassium supplements given as well. Other medicines remained unchanged. He will follow up with Dr. Ivet Kathleen, in 1 to 2 weeks regarding ongoing monitoring of renal function and hemoglobin and with Dr. Guru Abrams in 4 to 6 weeks for definitive treatment of the pancreatic pseudocyst, endoscopic versus percutaneous, for any endoscopic evaluation would need to take place at that time or thereafter. Greater than 30 minutes were spent with the patient on discharge planning on discharge day. SUSANA/ASHANTI Nirav Shepherd M.D. Discharge Summary [address] [address] NAME: LIO LAMBERT : 43 STATUS : DIS Jose PAT#: [id number] AGE: 71 ADM/REG DATE : 01/27/17 MR#: [id number] REPORT SERV DATE: 01/30/17 DICTATED BY: NIRAV SHEPHERD DATE: 01/29/17 REPORT STATUS : Draft TRANSCRIBED BY: MODL DATE: 01/29/17 / [id number] CC: Libby Zimmerman M.D. Chad Charapata, M.D.
[~2017-01-27 07:28] MED LIST changes: +ASAB PO; +LOP25 PO; +NITROSTAT0.4 MG SL; +PRIN5 PO; +PROBIOTIC PO; +TUMERIC SUPPLEMENT PO; +VITAMIN B-12 PO; +VITAMIN D3 PO; +WELLSR150 PO
[2017-01-27] MEDS ORDERED: PROBIOTIC PO (07:45)
[2017-01-27 08:20] LABS: INTERNATIONAL NORMAL RATI 1.2 UNITS (-); PARTIAL THROMBO TIME 28.3 SEC (22.5-37.2); PROTIME (NOT ORD) 14.7 SEC (12.0-14.5)
[2017-01-27 08:27] LABS: ALBUMIN 2.3 G/DL (3.5-5.0); TOTAL PROTEIN 6.5 G/DL (6.0-8.5)
[2017-01-27 15:14] LABS: PARTIAL THROMBO TIME 29.6 SEC (22.5-37.2)
[2017-01-27 15:15] LABS: INTERNATIONAL NORMAL RATI 1.2 UNITS (-); PROTIME (NOT ORD) 15.5 SEC (12.0-14.5)
[2017-01-27 15:16] LABS: MEAN CORPUS HGB CONC 33.6 g/dL (32.0-36.0); MEAN CORPUSCULAR VOLUME 92.1 fL (80-100); MEAN PLATELET VOLUME 9.1 fL (9.2-13.0); PLATELET COUNT 361 10/3/uL (150-400); RBC DISTRIBUTION WIDTH 15.6 % (12.0-16.0); WHITE BLOOD CELLS 9.5 10/3/uL (4.5-10.5)
[2017-01-27 15:18] LABS: A/G RATIO 0.7 (0.7-1.9); ALBUMIN 2.6 G/DL (3.5-5.0); ALKALINE PHOSPHATASE 184 U/L (45-117); BUN (BLOOD UREA NITROGEN) 45 MG/DL (6-23); CALCIUM, SERUM 8.3 MG/DL (8.5-10.4); CHLORIDE, SERUM 108 MMOL/L (96-112); CO2 (CARBON DIOXIDE) 24 MMOL/L (24-34); CREATININE 1.66 MG/DL (0.70-1.30); GFR AFRICAN AMERICAN 47 ML/MIN (>=60); GFR NON AFRICAN AMERICAN 40 ML/MIN (>=60); GLOBULIN 3.7 G/DL (2.5-4.1); GLUCOSE, SERUM 136 MG/DL (60-99); POTASSIUM, SERUM 3.5 MMOL/L (3.5-5.3); SGOT(AST) 104 U/L (5-40); SGPT(ALT) 121 U/L (5-65); SODIUM, SERUM 141 MMOL/L (135-148); TOTAL BILIRUBIN 1.2 MG/DL (0-1.2); TOTAL PROTEIN 6.3 G/DL (6.0-8.5)
[2017-01-27 15:22] LABS: HEMATOCRIT 22.3 % (40.0-51.0); HEMOGLOBIN 7.5 g/dL (13.6-17.8); MANUAL DIFF YES %; RED CELL COUNT 2.42 10/6/uL (4.7-6.1)
[2017-01-27 15:25] LABS: D-DIMER QUANTITATIVE 9.71 ug/mLFEU (< 0.50)
[2017-01-27 15:43] LABS: PROCALCITONIN 0.32 ng/mL (<0.5)
[2017-01-27 16:31] LABS: BAND NEUTROPHILS 7 %; EOSINOPHILS 1 %; IMMATURE GRANS ABSOLUTE (CALC) 0.19 10/3/uL (0.0-0.11); LYMPHOCYTES 4 %; LYMPHOCYTES ABSOLUTE (CALC) 0.38 10/3/uL (0.67-4.30); METAMYELOCYTES 2 %; MONOCYTES 7 %; MONOCYTES ABSOLUTE (CALC) 0.67 10/3/uL (0.21-1.20); NEUTROPHILS ABSOLUTE (CALC) 8.17 10/3/uL (2.02-8.40); PLATELET ESTIMATE ADQ (ADEQUATE); RBC MORPHOLOGY NORM (NORMAL); SEGMENTED NEUTROPHIL (0) 79 %; TOTAL NUCLEATED CELLS 100
[2017-01-28 07:05] LABS: HEMATOCRIT 23.7 % (40.0-51.0); HEMOGLOBIN 8.1 g/dL (13.6-17.8); MEAN CORPUS HGB CONC 34.2 g/dL (32.0-36.0); MEAN CORPUSCULAR VOLUME 93.7 fL (80-100); MEAN PLATELET VOLUME 9.1 fL (9.2-13.0); PLATELET COUNT 381 10/3/uL (150-400); RBC DISTRIBUTION WIDTH 15.5 % (12.0-16.0); RED CELL COUNT 2.53 10/6/uL (4.7-6.1); WHITE BLOOD CELLS 9.1 10/3/uL (4.5-10.5)
[2017-01-28 07:06] LABS: MANUAL DIFF YES %
[2017-01-28 07:24] LABS: BUN (BLOOD UREA NITROGEN) 41 MG/DL (6-23); CALCIUM, SERUM 8.3 MG/DL (8.5-10.4); CHLORIDE, SERUM 107 MMOL/L (96-112); CO2 (CARBON DIOXIDE) 21 MMOL/L (24-34); CREATININE 1.56 MG/DL (0.70-1.30); GFR AFRICAN AMERICAN 50 ML/MIN (>=60); GFR NON AFRICAN AMERICAN 43 ML/MIN (>=60); GLUCOSE, SERUM 113 MG/DL (60-99); POTASSIUM, SERUM 3.7 MMOL/L (3.5-5.3); SODIUM, SERUM 139 MMOL/L (135-148)
[2017-01-28 07:25] LABS: BAND NEUTROPHILS 4 %; LYMPHOCYTES 13 %; LYMPHOCYTES ABSOLUTE (CALC) 1.18 10/3/uL (0.67-4.30); MONOCYTES 2 %; MONOCYTES ABSOLUTE (CALC) 0.18 10/3/uL (0.21-1.20); NEUTROPHILS ABSOLUTE (CALC) 7.74 10/3/uL (2.02-8.40); PLATELET ESTIMATE ADQ (ADEQUATE); RBC MORPHOLOGY NORM (NORMAL); SEGMENTED NEUTROPHIL (0) 81 %; TOTAL NUCLEATED CELLS 100
[2017-01-29] MEDS ORDERED: LIPITOR80 MG PO (08:57)
[2017-01-29] MEDS ORDERED: ZENPEP5000 UNIT (09:01)
[2017-01-29] MEDS ORDERED: MAGOX4 PO (09:02)
[2017-01-29] MEDS ORDERED: PROTONIX PO (09:03)
[2017-01-29] MEDS ORDERED: KLOR-CON M2020 MEQ PO (09:04)
[2017-01-29] MEDS ORDERED: DEMA10T PO (09:05)
[2017-06-04] MEDS ORDERED: TOPXL25 PO (10:44)
[2017-06-04] MEDS ORDERED: LEXAPRO20 PO (10:46)
[2017-06-04] MEDS ORDERED: Z300 PO (10:47)
[2017-06-05] MEDS ORDERED: MAGOX4 PO (11:07)
[2017-06-05] MEDS ORDERED: PROBIOTIC PO (11:08)
[2017-06-05] MEDS ORDERED: ATV.5 PO (11:08)
== END 2017-01-29 13:28 | disposition home or self-care (01) | DRG 438 ==
LOC: IMGHOLD 07:28 → RADHOLD 07:39 → SDC/OF 10:24 → 1SO 11:15
PROVIDERS: Internal Medicine
PROC: BW40ZZZ Ultrasonography of Abdomen (ICD-10-PCS; 2017-01-27)
PROC: 30233N1 Transfusion of Nonautologous Red Blood Cells into Peripheral Vein, Percutaneous Approach (ICD-10-PCS; principal; 2017-01-28)
DX: K86.3 Pseudocyst of pancreas (principal); J96.01 Acute respiratory failure with hypoxia; N17.0 Acute kidney failure with tubular necrosis; J90 Pleural effusion, not elsewhere classified; I95.89 Other hypotension; N18.4 Chronic kidney disease, stage 4 (severe); E11.22 Type 2 diabetes mellitus with diabetic chronic kidney disease; K70.10 Alcoholic hepatitis without ascites; E11.9 Type 2 diabetes mellitus without complications; D63.8 Anemia in other chronic diseases classified elsewhere; I12.9 Hypertensive chronic kidney disease with stage 1 through stage 4 chronic kidney disease, or unspecified chronic kidney disease; K85.90 Acute pancreatitis without necrosis or infection, unspecified; K85.20 Alcohol induced acute pancreatitis without necrosis or infection; J98.11 Atelectasis; Z85.51 Personal history of malignant neoplasm of bladder; Z85.46 Personal history of malignant neoplasm of prostate; Z72.89 Other problems related to lifestyle; I25.10 Atherosclerotic heart disease of native coronary artery without angina pectoris; Z95.5 Presence of coronary angioplasty implant and graft; Z92.3 Personal history of irradiation; Z87.891 Personal history of nicotine dependence; Z79.82 Long term (current) use of aspirin; Z79.4 Long term (current) use of insulin; E66.3 Overweight; Z68.38 Body mass index [BMI] 38.0-38.9, adult
CPT/HCPCS: 36415; 71010; 71020; 71035; 76705; 80048; 80053; 82040; 82150; 82962; 83735; 84145; 84155; 85025; 85049; 85379; 85610; 85730; 86850; 86900; 86901; 86920; 87040; A9270-GY; J0895; J1940; P9016; P9047

== ENCOUNTER 2017-03-19 20:52 | Inpatient (IN) | payer OTHER ==
--- NOTE | ~2017-03-19 | OP ---
Record Of Operation [facility] [address] [place]. [address] NAME: LIO LAMBERT : 43 STATUS : ADM Jose PAT#: [id number] AGE: 71 ADM/REG DATE : 03/19/17 MR#: [id number] REPORT SERV DATE: 03/21/17 DICTATED BY: DEVI VENTURA JR. DATE: 03/20/17 REPORT STATUS : Draft TRANSCRIBED BY: MODL DATE: 03/20/17 DATE OF PROCEDURE: 03/20/2017 SURGEON: Devi Ventura M.D. TORNADO CHASER: Paloma Donaldson. PROCEDURES: Exploratory laparotomy, pancreatic pseudocyst gastrostomy with biopsy of pancreatic pseudocyst, cholecystectomy, and appendectomy. PREOPERATIVE DIAGNOSES: Pancreatic pseudocyst, cholecystitis, and appendicitis. POSTOPERATIVE DIAGNOSES: Pancreatic pseudocyst, cholecystitis, and appendicitis. ANESTHESIA: General. INDICATIONS: The patient was admitted two months ago to the hospital with acute pancreatitis. He did have peripancreatic fluid, this has progressed from the pseudocyst and he came to the emergency room with complaints of persistent abdominal pain in the upper abdomen, but relatively acute pain in the right lower quadrant. CT imaging demonstrated a well-defined pseudocyst measuring 8-9 cm behind the pancreas, a distended gallbladder, but also evidence of acute appendicitis. He was admitted, given IV fluids and IV antibiotics. He had persistent tenderness in the right lower quadrant. It was indicated to proceed with appendectomy along with internal drainage of the pseudocyst and cholecystectomy. FINDINGS: On exploration of the abdomen, there was evidence of acute appendicitis without evidence of perforation. There was swelling deep into the stomach consistent with a pseudocyst and a distended gallbladder. The appendix was removed successfully. The gallbladder was removed successfully. The pseudocyst was explored via the posterior wall of the stomach, cloudy fluid was obtained over 1 L. Samples of fluid submitted for culture and a generous biopsy of pancreatic cyst wall was submitted for permanent section. Satisfactory cyst gastrostomy was created, no other significant findings were encountered. DESCRIPTION OF PROCEDURE: With adequate general anesthesia, the patient was placed in supine position. The abdomen was prepped and draped sterilely. An upper midline incision was made. The dissection was carried down sharply through the subcutaneous tissues. The fascia and peritoneum were opened. The peritoneal cavity was entered. The above-noted findings were encountered. The right colon was mobilized laterally. The appendix was identified. The mesoappendix was clamped and divided securing bleeders with ligatures of silk suture ligatures and clips. The appendix was stapled across its base with a TA 30 and divided, it was submitted to Pathology. The base was also cauterized with electrocautery. Then the gallbladder was taken again in retrograde fashion. The cystic duct and artery were doubly clipped and divided. The bleeding from the bed was controlled with electrocautery and Surgiflo. Then, the anterior wall of the stomach was opened at the level of the antrum, and the posterior wall identified. The cyst was ballotable and a cautery was utilized to incise the posterior wall of the stomach directly into the cyst where this was encountered and a Record Of Operation [place] [id number] [facility] [place]. [address] NAME: LIO LAMBERT : 43 STATUS : ADM Jose PAT#: [id number] AGE: 71 ADM/REG DATE : 03/19/17 MR#: [id number] REPORT SERV DATE: 03/21/17 DICTATED BY: DEVI VENTURA JR. DATE: 03/20/17 REPORT STATUS : Draft TRANSCRIBED BY: ASHANTI DATE: 03/20/17 large amount of fluid was aspirated. Cultures were taken. This was enlarged with Revere hemostat and then a portion of the wall was excised along with the portion of the posterior wall of the stomach and this was submitted for permanent section. The cyst gastrostomy was created with a running locking suture of 2-0 Vicryl and this produced a satisfactory connection. The cavity was explored, there was no evidence of any necrotic material or solid material or any palpable finding suspicious for neoplasm. Then, the anterior wall of the stomach was closed in two layers with interrupted 2-0 silk suture. Nasogastric tube was left in the gastric lumen. The abdomen was irrigated with the saline. Hemostasis was assured at all sites. The wound was closed by approximating the fascia with running 0 PDS, subcutaneous Vicryl, and dermal Monocryl. A Prevena negative pressure dressing was placed. The patient left the operating room in satisfactory condition. ESTIMATED BLOOD LOSS: 100 mL. TRICIA/ASHANTI Devi Ventura Jr., M.D. / [id number] CC: Libby Koch Jr., M.D.
--- NOTE | ~2017-03-19 | DS ---
Discharge Summary [facility] [address] [place]. [address] NAME: LIO LAMBERT : 43 STATUS : DIS IN PAT#: [id number] AGE: 71 ADM/REG DATE : 03/19/17 MR#: [id number] REPORT SERV DATE: 04/09/17 DICTATED BY: DEVI VENTURA JR. DATE: 04/09/17 REPORT STATUS : Draft TRANSCRIBED BY: ASHANTI DATE: 04/09/17 Data Collection from hospitalization DISCHARGE DIAGNOSES: 1. Pancreatic pseudocyst. 2. Cholecystitis. 3. Appendicitis. 4. Hypertension. 5. Type 2 diabetes. 6. Chronic kidney disease. 7. Hypercholesterolemia. CONSULTATION: Dr. Mirela Day. PROCEDURES PERFORMED: 1. Exploratory laparotomy, pancreatic pseudocyst, gastrostomy with biopsy of pancreatic pseudocyst, cholecystectomy and appendectomy, 03/20/2017. 2. CT scan of the abdomen and pelvis without contrast, 03/19/2017. 3. Venous Doppler ultrasound of the bilateral lower extremities, 03/23/2017. PATHOLOGY: Appendix, appendectomy-acute appendicitis. Gallbladder, cholecystectomy-chronic cholecystitis. Stomach and pancreatic cyst wall excision-fibrotic cyst wall consistent with pseudocyst. DISCHARGE MEDICATIONS: Zyloprim 300 mg daily, Eliquis 5 mg twice a day, Lipitor 40 mg daily at 5 p.m., Wellbutrin SR 150 mg daily at 5 p.m., colchicine 0.6 mg daily, Creon one capsule with meals, Lopressor 25 mg daily at 5 p.m., Protonix 40 mg daily, Demadex 10 mg every morning. He was instructed not to continue aspirin. CONDITION AT DISCHARGE: Stable. DISPOSITION: The patient was discharged home on a regular diet with activities as instructed. He would follow up with Dr. Roland Spear, 04/07/2017. He would follow up with , 04/10/2017. He would follow up with Dr. Ivet Kathleen, 04/14/2017. HOSPITAL COURSE: This is a 71-year-old man, who had been admitted two months ago to the hospital with acute pancreatitis. He did have peripancreatic fluid and this has progressed from the pseudocyst and he came to the emergency room with complaints of persistent abdominal pain in the upper abdomen, but relatively acute pain in the right lower quadrant. CT imaging demonstrated a well-defined pseudocyst, which measured 8-9 cm behind the pancreas, a distended gallbladder, but also evidence of acute appendicitis. He was admitted to the hospital at this time for further evaluation and treatment. Upon admission, he was started on IV fluids and IV antibiotics. He had persistent tenderness in the right lower quadrant. Treatment options were discussed and it was elected to proceed with surgical intervention. He was taken to the operating room, where he underwent the above-mentioned procedure. He tolerated this well and there were no complications. On postop day one, he was stable. Pain control was excellent. His abdomen Discharge Summary [facility] [address] [facility] [place]. [address] NAME: LIO LAMBERT : 43 STATUS : DIS IN PAT#: [id number] AGE: 71 ADM/REG DATE : 03/19/17 MR#: [id number] REPORT SERV DATE: 04/09/17 DICTATED BY: DEVI VENTURA JR. DATE: 04/09/17 REPORT STATUS : Draft TRANSCRIBED BY: ASHANTI DATE: 04/09/17 was soft. Urine output was okay. On the , the Zee catheter was going to be removed. NG tube remained in place. We encouraged him to increase his activity. The following day, IV Lasix was given. His NG tube remained in place. He was seen in consultation by Dr. Mirela Day regarding atrial fibrillation. He had been recovering postoperatively and had been slow to take oral intake due to excessive NG tube output. He did have some volume overload but otherwise, had been asymptomatic from a cardiac standpoint. He denied chest pain, shortness of breath, or palpitations. He was found to be in atrial fibrillation that was rate controlled on telemetry. He was felt to have new onset of rate controlled atrial fibrillation. Creatinine level was 1.23. Diuresis was being performed. Once the patient was able to tolerate oral medication, we would consider anticoagulation for primary stroke prevention and direct current cardioversion with transesophageal echocardiogram. Magnesium, TSH, free T4, and echocardiogram was going to be checked. The risk of sedation at this point was too great with the copious NG tube output and his risk for stroke over short period of time was low. When he is able to tolerate oral intake and there was no risk of invasive procedures, we would consider anticoagulation and transesophageal echocardiogram with cardioversion. On 03/24/2017, the NG tube was removed. His abdomen remained soft. Diuresis continued. He said he was feeling better. He was in atrial fibrillation. The next day, he complained of some pain and swelling. Otherwise, he was tolerating liquids. He had had a venous Doppler ultrasound of the bilateral lower extremities and it had been negative for deep vein thrombosis. Colchicine and allopurinol were being given. On the , he remained in atrial fibrillation. His lungs were clear. He had no edema. He was started on full liquids. The next day, a limited echocardiogram was performed. He had normal left ventricular systolic function with ejection fraction greater than 55%. Via visual estimate, he had a dilated left atrium. There was a filling defect within the left atrial appendage consistent with thrombus. It was felt that we would need to consider anticoagulation for four to six weeks followed by repeat transesophageal echocardiogram to verify no thrombus present. He had no palpitations or chest pain. He had intermittent left arm pain. Metoprolol and Eliquis were continued. Potassium supplementation was given. On 03/28/2017, white count was 7.1. He was voiding well. His abdomen remained soft. His incision looked okay. His diet was advanced. Over the next couple of days, he was eating well. He was still on O2. Discharge planning was performed. On 03/30/2017, he was progressing satisfactorily. He was tolerating oral intake. He did have a bowel movement. Discharge instructions were given. Due to his improved and stable condition, he was discharged home with the above-stated instructions. Information collected by: Savannah Sabillon I submit the above information as my discharge summary. TG/MODL Dvei Ventura Jr., M.D. / [id number] Discharge Summary [address] [address] NAME: LIO LAMBERT : 43 STATUS : DIS IN PAT#: [id number] AGE: 71 ADM/REG DATE : 03/19/17 MR#: [id number] REPORT SERV DATE: 04/09/17 DICTATED BY: DEVI VENTURA JR. DATE: 04/09/17 REPORT STATUS : Draft TRANSCRIBED BY: ASHANTI DATE: 04/09/17 CC: Libby Koch Jr., M.D. Lisa Gail Carkner, M.D.
--- NOTE | ~2017-03-19 | CN ---
Consultation Report [place] [id number] [facility] [place]. [address] NAME: ANGEL LAMBERT : 43 STATUS : ADM IN [facility]#: [id number] AGE: 71 ADM/REG DATE : 03/19/17 MR#: [id number] REPORT SERV DATE: 03/24/17 DICTATED BY: DATE: REPORT STATUS : Draft TRANSCRIBED BY: MODL DATE: 03/23/17 CONSULTATION DATE OF CONSULTATION: 03/23/2017 PRIMARY DIGITAL ACCOUNT DIRECTOR: Roland Spear M.D. CHIEF COMPLAINT/REASON FOR CONSULT: Atrial fibrillation. HISTORY OF PRESENT ILLNESS: Mr. Angel Lambert is a very pleasant 71-year-old gentleman who was admitted to hospital on 03/20/2017, for exploratory laparotomy. He was diagnosed with a pancreatic pseudocyst, cholecystitis, and appendicitis. He has been recovering postoperatively and has been slow to take p.o. intake due to excessive NG tube output. The patient notes volume overload, but otherwise, has been asymptomatic from a cardiac standpoint denying chest pain, shortness of breath, or palpitations. He was found to be in atrial fibrillation that is rate controlled today on telemetry. PAST MEDICAL HISTORY: 1. Hypertension. 2. Hyperlipidemia. 3. Recurrent pancreatitis. 4. History of coronary artery disease, status post PCI. 5. Remote history of renal insufficiency. 6. Mild aortic insufficiency. SOCIAL HISTORY: The patient is . He quit drinking alcohol on 01/13/2017. He quit smoking in 2001. He denies extracurricular drug use. HOME MEDICATIONS: Include: 1. Aspirin 81 mg p.o. daily. 2. Atorvastatin 40 mg p.o. daily. 3. Bupropion 150 mg p.o. daily. 4. Metoprolol 25 mg p.o. daily. 5. Protonix 40 mg p.o. daily. 6. Demadex 10 mg p.o. q.a.m. FAMILY HISTORY: Significant for mother who at 92 of congestive heart failure, she in her sleep. REVIEW OF SYSTEMS: All systems reviewed and is negative except for dictated in HPI. PHYSICAL EXAMINATION: VITAL SIGNS: Temperature 98.2, pulse is ranged between 58 and 80 beats per minute, blood Consultation Report [place] [id number] [facility] [place]. [address] NAME: ANGEL LAMBERT : 43 STATUS : ADM IN [facility]#: [id number] AGE: 71 ADM/REG DATE : 03/19/17 MR#: [id number] REPORT SERV DATE: 03/24/17 DICTATED BY: DATE: REPORT STATUS : Draft TRANSCRIBED BY: ASHANTI DATE: 03/23/17 pressure 130/80, and oxygen saturations 93% on 2 L nasal cannula. GENERAL: Mr. Lambert is a 71-year-old gentleman. He is resting comfortably, in no distress. NG tube output is prolific with bile-colored output. HEART: Irregular, rate controlled. Soft S1, S2. I could not appreciate murmurs, rubs, or gallops. LUNGS: Clear to auscultation in all diggs. ABDOMEN: Distended. There was mild abdominal wall edema. Bowel sounds are diminished. EXTREMITIES: Warm and well perfused. There is trace edema at the extremities. There is bilateral calf pain with palpation, left greater than right. NEUROLOGIC: I could not appreciate focal neurologic deficits. LABORATORY DATA: Hemoglobin 8.5 down from 11.3 on admission, hematocrit 31.5, and platelet count is 188. Sodium 142, potassium 3.7, BUN 15, creatinine 1.23 down from 1.91, glucose is 117. IMPRESSION REPORT AND PLAN: 1. New onset rate controlled atrial fibrillation. 2. Volume overload. 3. Status post exploratory laparotomy, 03/20/2017, for pancreatic pseudocyst with cholecystitis and appendicitis. 4. Hypertension. 5. Hyperlipidemia. 6. Bilateral calf pain. 7. History of coronary artery disease, status post percutaneous coronary intervention, currently asymptomatic. RECOMMENDATIONS: 1. I agree with diuresis. 2. When the patient is able to take oral medications, we would consider anticoagulation for primary stroke prevention and direct current cardioversion with KRISTY. 3. We would check magnesium, TSH, free T4, and echocardiogram. 4. The risk of sedation at this point is too great with his copious NG tube output of sedation and his risk of stroke over short period of time is low. When he is able to take p.o. intake and there is no risk of invasive procedures, we would consider anticoagulation and KRISTY cardioversion. 5. Additional recommendations pending clinical course. VIK/ASHANTI Mirela Day M.D. / [id number] Consultation Report [place] [address] [address] NAME: ANGEL LAMBERT : 43 STATUS : ADM IN PAT#: [id number] AGE: 71 ADM/REG DATE : 03/19/17 MR#: [id number] REPORT SERV DATE: 03/24/17 DICTATED BY: DATE: REPORT STATUS : Draft TRANSCRIBED BY: MODL DATE: 03/23/17 CC: Libby Koch Jr., M.D.
--- NOTE | ~2017-03-19 | HP ---
History And Physical [place] [address] [place]. [address] NAME: LIO LAMBERT : 43 STATUS : ADM Jose PAT#: [id number] AGE: 71 ADM/REG DATE : 03/19/17 MR#: [id number] REPORT SERV DATE: 03/20/17 DICTATED BY: DEVI NI JR. DATE: 03/20/17 REPORT STATUS : Draft TRANSCRIBED BY: ASHANTI DATE: 03/20/17 DATE OF ADMISSION: 03/19/2017 CHIEF COMPLAINT: Abdominal pain. HISTORY OF PRESENT ILLNESS: This is a 71-year-old male. He was hospitalized in January with acute pancreatitis and actually re-hospitalized with hypoxemic episode. He has continued to have abdominal pain since discharge with upper abdominal pain, nausea, difficulty eating, and weight loss of some 20 to 25 pounds. He, then over the past two to three days, developed more significant pain in the right lower quadrant. He came to the emergency room where he was noted to have a tender abdomen in the right lower quadrant. He had a CT scan which was remarkable for showing a large pseudocyst, also appendicoliths, and periappendiceal inflammation. White count was normal. Labs were acceptable with creatinine of 2 which is his baseline and chronic kidney disease. He was admitted and given IV antibiotics and IV fluids. Overnight he continues to have pain in the right lower quadrant and tenderness. Review of studies demonstrates that he did have peripancreatic fluid collection back in January but this has enlarged and the scan does show a cyst with a jf. PAST MEDICAL HISTORY: Remarkable for history of coronary artery disease which has a stent, no current symptoms; hypertension; hypercholesterolemia; chronic kidney disease; and type 2 diabetes. SURGERIES: Inguinal hernia repair. Cystoscopy. Bladder biopsy. SOCIAL HISTORY: He is . Tobacco, none. Alcohol, history of use none since 01/11. He is retired. FAMILY HISTORY: Remarkable for coronary artery disease and hypertension. REVIEW OF SYSTEMS: GENERAL: Some chills. HEENT: Negative. NEUROLOGIC: Negative. SKIN: Negative. RESPIRATORY: Negative. CV: Negative. GI: As above. : Negative. ENDOCRINE: Negative. MUSCULOSKELETAL: Negative. HEMATOLOGY: Negative. IMMUNOLOGIC: Negative. PSYCHIATRIC: Negative. PHYSICAL EXAMINATION: GENERAL: Exam shows an elderly male, who is lying quietly in the bed. VITAL SIGNS: He is afebrile, heart rate is 52, respirations 20, and blood pressure 182/86. History And Physical [address] [place]. [address] NAME: LIO LAMBERT : 41 STATUS : ADM Jose PAT#: [id number] AGE: 71 ADM/REG DATE : 03/19/17 MR#: [id number] REPORT SERV DATE: 03/20/17 DICTATED BY: DEVI NI JR. DATE: 03/20/17 REPORT STATUS : Draft TRANSCRIBED BY: ASHANTI DATE: 03/20/17 HEENT: Examination of the head and neck shows pupils equal, round, and reactive. There are no icteric changes. Mucous membranes are dry. The neck is supple. There is no mass or thyromegaly. LUNGS: Clear bilaterally. CARDIOVASCULAR: Shows normal S1 and S2 without murmur. ABDOMEN: The abdomen is slightly distended, it is centered around the upper abdomen epigastric region, also in the right lower quadrant. EXTREMITIES: The extremities showed no clubbing, cyanosis, or edema. NEUROLOGIC: Alert and oriented. No focal findings. Appropriate affect. DATA: Images are reviewed and confirmed the findings. IMPRESSION: 1. Acute appendicitis. 2. Pancreatic pseudocyst. 3. History of abnormal gallbladder. PLAN: Discussed findings with the patient and the family in detail. In view of the situation, I would recommend proceeding with operation for appendectomy, pancreatic pseudocyst, gastrostomy and biopsy of the cyst wall and also cholecystectomy at that time. Details of the risks, expected recovery were all discussed. They understand and agree. TRICIA/ASHANIT Devi Ni Jr., M.D. / [id number] CC: Libby Koch Jr., M.D.
--- NOTE | ~2017-03-19 | TEE ---
Transesophageal Echocardiogram [facility] [address] [facility] [place]. [address] NAME: LIO LAMBERT : 41 STATUS : ADM IN [facility]#: [id number] AGE: 71 ADM/REG DATE : 03/19/17 MR#: [id number] REPORT SERV DATE: 03/27/17 DICTATED BY: DATE: REPORT STATUS : Draft TRANSCRIBED BY: MODL DATE: 03/27/17 CHIEF COMPLAINT/REASON FOR STUDY: Atrial fibrillation. Limited transesophageal echocardiogram performed with the assistance of my Anesthesia colleagues, Mr. Lambert was sedated for the procedure with IV propofol. The transesophageal echocardiogram was easily inserted and salient 2D echocardiographic images obtained. 1. The left ventricular systolic function is grossly normal with a visually estimated ejection fraction greater than 55%. 2. The right ventricle appeared normal in size and systolic function. 3. The left atrium was dilated. 4. The left atrial appendage was interrogated at multiple levels and depths. There was a filling defect within the left atrial appendage consistent with thrombus. This was also confirmed with use of Definity contrast. Following thrombus identification, the procedure was terminated. No further images were obtained and proceeding with cardioversion was not performed. IMPRESSION: 1. Normal left ventricular systolic function with an ejection fraction greater than 55% via visual estimate. 2. Dilated left atrium. 3. Filling defect within the left atrial appendage consistent with thrombus. RECOMMENDATIONS: Consider anticoagulation for four to six weeks followed by repeat KRISTY to verify no thrombus present. [facility]/ASHANTI Mirela Day M.D. / [id number] CC: Libby Koch Jr., M.D.
[2017-03-19 20:47] LABS: BASOPHILS 0.3 %; BASOPHILS ABSOLUTE 0.02 10/3/uL (0.0-0.16); EOSINOPHILS 1.4 %; EOSINOPHILS ABSOLUTE 0.11 10/3/uL (0.0-0.53); HEMATOCRIT 37.1 % (40.0-51.0); HEMOGLOBIN 12.6 g/dL (13.6-17.8); IMMATURE GRANULOCYTES 0.5 %; IMMATURE GRANULOCYTES ABSOLUTE 0.04 10/3/uL (0.0-0.11); LYMPHOCYTES 10.7 %; LYMPHOCYTES ABSOLUTE 0.85 10/3/uL (0.67-4.30); MANUAL DIFF NO %; MEAN CORPUSCULAR HEMOGLOB 30.6 pg (26.0-34.0); MEAN PLATELET VOLUME 8.9 fL (9.2-13.0); NEUTROPHILS 82.1 %; NEUTROPHILS ABSOLUTE 6.55 10/3/uL (2.02-8.40); PLATELET COUNT 202 10/3/uL (150-400); RBC DISTRIBUTION WIDTH 14.8 % (12.0-16.0); RED CELL COUNT 4.12 10/6/uL (4.7-6.1)
[~2017-03-19 20:52] MED LIST changes: +DEMA10T PO; +KLOR-CON M2020 MEQ PO; +MAGOX4 PO; +PROTONIX PO; +ZENPEP5000 UNIT
[2017-03-19 20:53] LABS: PARTIAL THROMBO TIME 29.3 SEC (22.5-37.2); PROTIME (NOT ORD) 13.2 SEC (12.0-14.5)
[2017-03-19 21:03] LABS: ALBUMIN 3.7 G/DL (3.5-5.0); ALKALINE PHOSPHATASE 194 U/L (45-117); CALCIUM, SERUM 9.4 MG/DL (8.5-10.4); CHLORIDE, SERUM 106 MMOL/L (96-112); CO2 (CARBON DIOXIDE) 29 MMOL/L (24-34); CREATININE 2.01 MG/DL (0.70-1.30); GFR AFRICAN AMERICAN 37 ML/MIN (>=60); GFR NON AFRICAN AMERICAN 32 ML/MIN (>=60); GLOBULIN 3.7 G/DL (2.5-4.1); GLUCOSE, SERUM 127 MG/DL (60-99); POTASSIUM, SERUM 4.4 MMOL/L (3.5-5.3); SGOT(AST) 13 U/L (5-40); SGPT(ALT) 19 U/L (5-65); SODIUM, SERUM 141 MMOL/L (135-148); TOTAL BILIRUBIN 0.7 MG/DL (0-1.2); TOTAL PROTEIN 7.4 G/DL (6.0-8.5); TROPONIN I <0.02 NG/ML (<0.05)
[2017-03-19 21:04] LABS: ACETAMINOPHEN LEVEL (TYLENOL) < 2.0 MCG/ML (10.0-20.0); ALCOHOL < 10 MG/DL (0); BUN (BLOOD UREA NITROGEN) 19 MG/DL (6-23); DIRECT BILIRUBIN 0.2 MG/DL (0.0-0.4); INDIRECT BILIRUBIN(NOT ORDER) 0.5 MG/DL (0.1-0.9); SALICYLATE < 1.7 MG/DL (-)
[2017-03-19] MEDS ORDERED: WELLSR150 PO (22:23)
[2017-03-19] MEDS ORDERED: DEMA10T PO (22:23)
[2017-03-19] MEDS ORDERED: LIPITOR40 PO (22:25)
[2017-03-19] MEDS ORDERED: ASAB PO (22:25)
[2017-03-19] MEDS ORDERED: CREON DR 36,001 EACH PO (22:26)
[2017-03-19] MEDS ORDERED: LOP25 PO (22:26)
[2017-03-19] MEDS ORDERED: PROTONIX PO (22:27)
[2017-03-20 09:54] LABS: BASOPHILS 0.2 %; BASOPHILS ABSOLUTE 0.02 10/3/uL (0.0-0.16); EOSINOPHILS 1.5 %; EOSINOPHILS ABSOLUTE 0.12 10/3/uL (0.0-0.53); HEMATOCRIT 33.6 % (40.0-51.0); HEMOGLOBIN 11.3 g/dL (13.6-17.8); IMMATURE GRANULOCYTES 0.4 %; IMMATURE GRANULOCYTES ABSOLUTE 0.03 10/3/uL (0.0-0.11); LYMPHOCYTES 11.8 %; LYMPHOCYTES ABSOLUTE 0.97 10/3/uL (0.67-4.30); MEAN CORPUS HGB CONC 33.6 g/dL (32.0-36.0); MEAN CORPUSCULAR HEMOGLOB 30.5 pg (26.0-34.0); MEAN CORPUSCULAR VOLUME 90.8 fL (80-100); MEAN PLATELET VOLUME 9.4 fL (9.2-13.0); MONOCYTES 10.7 %; MONOCYTES ABSOLUTE 0.88 10/3/uL (0.21-1.20); NEUTROPHILS 75.4 %; NEUTROPHILS ABSOLUTE 6.17 10/3/uL (2.02-8.40); PLATELET COUNT 178 10/3/uL (150-400); RBC DISTRIBUTION WIDTH 14.8 % (12.0-16.0); WHITE BLOOD CELLS 8.2 10/3/uL (4.5-10.5)
[2017-03-20 09:57] LABS: MANUAL DIFF NO %
[2017-03-20 10:10] LABS: A/G RATIO 0.9 (0.7-1.9); BUN (BLOOD UREA NITROGEN) 21 MG/DL (6-23); CALCIUM, SERUM 8.9 MG/DL (8.5-10.4); CHLORIDE, SERUM 110 MMOL/L (96-112); CO2 (CARBON DIOXIDE) 27 MMOL/L (24-34); CREATININE 1.91 MG/DL (0.70-1.30); GFR AFRICAN AMERICAN 39 ML/MIN (>=60); GFR NON AFRICAN AMERICAN 34 ML/MIN (>=60); GLOBULIN 3.2 G/DL (2.5-4.1); GLUCOSE, SERUM 103 MG/DL (60-99); POTASSIUM, SERUM 4.3 MMOL/L (3.5-5.3); SGOT(AST) 9 U/L (5-40); SGPT(ALT) 14 U/L (5-65); SODIUM, SERUM 143 MMOL/L (135-148); TOTAL BILIRUBIN 0.7 MG/DL (0-1.2); TOTAL PROTEIN 6.2 G/DL (6.0-8.5)
[2017-03-20 10:11] LABS: ALKALINE PHOSPHATASE 156 U/L (45-117)
[2017-03-20 20:16] LABS: BASOPHILS 0.4 %; BASOPHILS ABSOLUTE 0.03 10/3/uL (0.0-0.16); EOSINOPHILS 0.9 %; EOSINOPHILS ABSOLUTE 0.07 10/3/uL (0.0-0.53); HEMATOCRIT 31.4 % (40.0-51.0); HEMOGLOBIN 10.3 g/dL (13.6-17.8); IMMATURE GRANULOCYTES 0.7 %; IMMATURE GRANULOCYTES ABSOLUTE 0.05 10/3/uL (0.0-0.11); LYMPHOCYTES 8.2 %; LYMPHOCYTES ABSOLUTE 0.61 10/3/uL (0.67-4.30); MEAN CORPUS HGB CONC 32.8 g/dL (32.0-36.0); MEAN CORPUSCULAR HEMOGLOB 29.7 pg (26.0-34.0); MEAN CORPUSCULAR VOLUME 90.5 fL (80-100); MEAN PLATELET VOLUME 9.6 fL (9.2-13.0); MONOCYTES 4.7 %; MONOCYTES ABSOLUTE 0.35 10/3/uL (0.21-1.20); NEUTROPHILS 85.1 %; NEUTROPHILS ABSOLUTE 6.29 10/3/uL (2.02-8.40); PLATELET COUNT 131 10/3/uL (150-400); RBC DISTRIBUTION WIDTH 15.2 % (12.0-16.0); RED CELL COUNT 3.47 10/6/uL (4.7-6.1); WHITE BLOOD CELLS 7.4 10/3/uL (4.5-10.5)
[2017-03-20 20:19] LABS: MANUAL DIFF NO %
[2017-03-20 20:33] LABS: BUN (BLOOD UREA NITROGEN) 21 MG/DL (6-23); CALCIUM, SERUM 8.6 MG/DL (8.5-10.4); CHLORIDE, SERUM 110 MMOL/L (96-112); CREATININE 1.99 MG/DL (0.70-1.30); GFR AFRICAN AMERICAN 37 ML/MIN (>=60); GFR NON AFRICAN AMERICAN 32 ML/MIN (>=60); SODIUM, SERUM 142 MMOL/L (135-148)
[2017-03-20 20:34] LABS: CO2 (CARBON DIOXIDE) 21 MMOL/L (24-34); GLUCOSE, SERUM 147 MG/DL (60-99)
[2017-03-20 20:35] LABS: POTASSIUM, SERUM 5.4 MMOL/L (3.5-5.3)
[2017-03-21 07:55] LABS: BASOPHILS 0.6 %; BASOPHILS ABSOLUTE 0.05 10/3/uL (0.0-0.16); EOSINOPHILS 0.1 %; EOSINOPHILS ABSOLUTE 0.01 10/3/uL (0.0-0.53); HEMATOCRIT 34.7 % (40.0-51.0); HEMOGLOBIN 11.6 g/dL (13.6-17.8); IMMATURE GRANULOCYTES 0.5 %; IMMATURE GRANULOCYTES ABSOLUTE 0.04 10/3/uL (0.0-0.11); LYMPHOCYTES 9.7 %; LYMPHOCYTES ABSOLUTE 0.79 10/3/uL (0.67-4.30); MANUAL DIFF NO %; MEAN CORPUS HGB CONC 33.4 g/dL (32.0-36.0); MEAN CORPUSCULAR HEMOGLOB 30.2 pg (26.0-34.0); MEAN CORPUSCULAR VOLUME 90.4 fL (80-100); MEAN PLATELET VOLUME 9.3 fL (9.2-13.0); MONOCYTES 9.1 %; MONOCYTES ABSOLUTE 0.74 10/3/uL (0.21-1.20); NEUTROPHILS ABSOLUTE 6.53 10/3/uL (2.02-8.40); PLATELET COUNT 194 10/3/uL (150-400); RBC DISTRIBUTION WIDTH 15.3 % (12.0-16.0); RED CELL COUNT 3.84 10/6/uL (4.7-6.1); WHITE BLOOD CELLS 8.2 10/3/uL (4.5-10.5)
[2017-03-21 08:17] LABS: A/G RATIO 1.1 (0.7-1.9); BUN (BLOOD UREA NITROGEN) 19 MG/DL (6-23); CALCIUM, SERUM 8.8 MG/DL (8.5-10.4); CHLORIDE, SERUM 111 MMOL/L (96-112); CO2 (CARBON DIOXIDE) 22 MMOL/L (24-34); CREATININE 1.62 MG/DL (0.70-1.30); GFR AFRICAN AMERICAN 48 ML/MIN (>=60); GFR NON AFRICAN AMERICAN 41 ML/MIN (>=60); GLOBULIN 2.8 G/DL (2.5-4.1); GLUCOSE, SERUM 124 MG/DL (60-99); POTASSIUM, SERUM 5.1 MMOL/L (3.5-5.3); SGPT(ALT) 31 U/L (5-65); SODIUM, SERUM 142 MMOL/L (135-148); TOTAL BILIRUBIN 0.5 MG/DL (0-1.2); TOTAL PROTEIN 5.8 G/DL (6.0-8.5)
[2017-03-21 08:18] LABS: ALKALINE PHOSPHATASE 144 U/L (45-117); SGOT(AST) 31 U/L (5-40)
[2017-03-22 07:29] LABS: BASOPHILS 0.3 %; BASOPHILS ABSOLUTE 0.02 10/3/uL (0.0-0.16); EOSINOPHILS 6.1 %; EOSINOPHILS ABSOLUTE 0.44 10/3/uL (0.0-0.53); HEMATOCRIT 31.8 % (40.0-51.0); HEMOGLOBIN 10.3 g/dL (13.6-17.8); IMMATURE GRANULOCYTES 0.3 %; IMMATURE GRANULOCYTES ABSOLUTE 0.02 10/3/uL (0.0-0.11); LYMPHOCYTES 14.9 %; LYMPHOCYTES ABSOLUTE 1.08 10/3/uL (0.67-4.30); MEAN CORPUS HGB CONC 32.4 g/dL (32.0-36.0); MEAN CORPUSCULAR HEMOGLOB 29.7 pg (26.0-34.0); MEAN CORPUSCULAR VOLUME 91.6 fL (80-100); MEAN PLATELET VOLUME 9.2 fL (9.2-13.0); MONOCYTES 15.7 %; MONOCYTES ABSOLUTE 1.14 10/3/uL (0.21-1.20); NEUTROPHILS 62.7 %; NEUTROPHILS ABSOLUTE 4.54 10/3/uL (2.02-8.40); PLATELET COUNT 174 10/3/uL (150-400); RBC DISTRIBUTION WIDTH 15.2 % (12.0-16.0); RED CELL COUNT 3.47 10/6/uL (4.7-6.1); WHITE BLOOD CELLS 7.2 10/3/uL (4.5-10.5)
[2017-03-22 07:30] LABS: MANUAL DIFF NO %
[2017-03-22 07:47] LABS: BUN (BLOOD UREA NITROGEN) 18 MG/DL (6-23); CALCIUM, SERUM 8.3 MG/DL (8.5-10.4); CHLORIDE, SERUM 110 MMOL/L (96-112); CO2 (CARBON DIOXIDE) 25 MMOL/L (24-34); CREATININE 1.41 MG/DL (0.70-1.30); GFR AFRICAN AMERICAN 57 ML/MIN (>=60); GFR NON AFRICAN AMERICAN 49 ML/MIN (>=60); GLUCOSE, SERUM 101 MG/DL (60-99); POTASSIUM, SERUM 3.9 MMOL/L (3.5-5.3); SODIUM, SERUM 143 MMOL/L (135-148)
[2017-03-23 07:50] LABS: BASOPHILS 0.4 %; BASOPHILS ABSOLUTE 0.03 10/3/uL (0.0-0.16); EOSINOPHILS 6.2 %; HEMATOCRIT 31.5 % (40.0-51.0); HEMOGLOBIN 8.5 g/dL (13.6-17.8); IMMATURE GRANULOCYTES 0.5 %; IMMATURE GRANULOCYTES ABSOLUTE 0.04 10/3/uL (0.0-0.11); LYMPHOCYTES 15.9 %; LYMPHOCYTES ABSOLUTE 1.28 10/3/uL (0.67-4.30); MEAN CORPUSCULAR VOLUME 89.7 fL (80-100); MEAN PLATELET VOLUME 9.2 fL (9.2-13.0); MONOCYTES 14.4 %; MONOCYTES ABSOLUTE 1.16 10/3/uL (0.21-1.20); NEUTROPHILS 62.6 %; NEUTROPHILS ABSOLUTE 5.06 10/3/uL (2.02-8.40); PLATELET COUNT 188 10/3/uL (150-400); RBC DISTRIBUTION WIDTH 14.8 % (12.0-16.0); RED CELL COUNT 3.51 10/6/uL (4.7-6.1); WHITE BLOOD CELLS 8.1 10/3/uL (4.5-10.5)
[2017-03-23 07:52] LABS: MANUAL DIFF NO %; MEAN CORPUSCULAR HEMOGLOB 24.2 pg (26.0-34.0)
[2017-03-23 09:32] LABS: BUN (BLOOD UREA NITROGEN) 15 MG/DL (6-23); CALCIUM, SERUM 8.8 MG/DL (8.5-10.4); CHLORIDE, SERUM 109 MMOL/L (96-112); CO2 (CARBON DIOXIDE) 25 MMOL/L (24-34); CREATININE 1.23 MG/DL (0.70-1.30); GFR AFRICAN AMERICAN 67 ML/MIN (>=60); GFR NON AFRICAN AMERICAN 58 ML/MIN (>=60); GLUCOSE, SERUM 117 MG/DL (60-99); POTASSIUM, SERUM 3.7 MMOL/L (3.5-5.3); SODIUM, SERUM 142 MMOL/L (135-148)
[2017-03-24 06:33] LABS: BASOPHILS 0.3 %; BASOPHILS ABSOLUTE 0.02 10/3/uL (0.0-0.16); EOSINOPHILS 5.4 %; EOSINOPHILS ABSOLUTE 0.39 10/3/uL (0.0-0.53); HEMATOCRIT 27.8 % (40.0-51.0); HEMOGLOBIN 9.2 g/dL (13.6-17.8); IMMATURE GRANULOCYTES 0.4 %; IMMATURE GRANULOCYTES ABSOLUTE 0.03 10/3/uL (0.0-0.11); LYMPHOCYTES 14.4 %; LYMPHOCYTES ABSOLUTE 1.03 10/3/uL (0.67-4.30); MEAN CORPUS HGB CONC 33.1 g/dL (32.0-36.0); MEAN CORPUSCULAR HEMOGLOB 30.1 pg (26.0-34.0); MEAN CORPUSCULAR VOLUME 90.8 fL (80-100); MONOCYTES 12.8 %; MONOCYTES ABSOLUTE 0.92 10/3/uL (0.21-1.20); NEUTROPHILS 66.7 %; NEUTROPHILS ABSOLUTE 4.77 10/3/uL (2.02-8.40); PLATELET COUNT 199 10/3/uL (150-400); RBC DISTRIBUTION WIDTH 14.6 % (12.0-16.0); RED CELL COUNT 3.06 10/6/uL (4.7-6.1); WHITE BLOOD CELLS 7.2 10/3/uL (4.5-10.5)
[2017-03-24 06:34] LABS: MANUAL DIFF NO %
[2017-03-24 06:47] LABS: BUN (BLOOD UREA NITROGEN) 14 MG/DL (6-23); CALCIUM, SERUM 8.5 MG/DL (8.5-10.4); CHLORIDE, SERUM 108 MMOL/L (96-112); CO2 (CARBON DIOXIDE) 27 MMOL/L (24-34); CREATININE 1.36 MG/DL (0.70-1.30); GFR AFRICAN AMERICAN 59 ML/MIN (>=60); GFR NON AFRICAN AMERICAN 51 ML/MIN (>=60); GLUCOSE, SERUM 127 MG/DL (60-99); POTASSIUM, SERUM 3.7 MMOL/L (3.5-5.3); SODIUM, SERUM 142 MMOL/L (135-148)
[2017-03-26 06:18] LABS: BASOPHILS 0.2 %; BASOPHILS ABSOLUTE 0.02 10/3/uL (0.0-0.16); EOSINOPHILS 4.2 %; EOSINOPHILS ABSOLUTE 0.36 10/3/uL (0.0-0.53); HEMATOCRIT 28.8 % (40.0-51.0); HEMOGLOBIN 9.7 g/dL (13.6-17.8); IMMATURE GRANULOCYTES 0.5 %; IMMATURE GRANULOCYTES ABSOLUTE 0.04 10/3/uL (0.0-0.11); LYMPHOCYTES 11.1 %; LYMPHOCYTES ABSOLUTE 0.94 10/3/uL (0.67-4.30); MEAN CORPUS HGB CONC 33.7 g/dL (32.0-36.0); MEAN CORPUSCULAR HEMOGLOB 29.9 pg (26.0-34.0); MEAN CORPUSCULAR VOLUME 88.9 fL (80-100); MEAN PLATELET VOLUME 9.4 fL (9.2-13.0); MONOCYTES 10.8 %; MONOCYTES ABSOLUTE 0.92 10/3/uL (0.21-1.20); NEUTROPHILS 73.2 %; PLATELET COUNT 224 10/3/uL (150-400); RBC DISTRIBUTION WIDTH 14.5 % (12.0-16.0); RED CELL COUNT 3.24 10/6/uL (4.7-6.1); WHITE BLOOD CELLS 8.5 10/3/uL (4.5-10.5)
[2017-03-26 06:21] LABS: MANUAL DIFF NO %
[2017-03-26 06:35] LABS: CALCIUM, SERUM 8.3 MG/DL (8.5-10.4); CHLORIDE, SERUM 103 MMOL/L (96-112); CO2 (CARBON DIOXIDE) 28 MMOL/L (24-34); CREATININE 1.62 MG/DL (0.70-1.30); GFR AFRICAN AMERICAN 48 ML/MIN (>=60); GFR NON AFRICAN AMERICAN 41 ML/MIN (>=60); GLUCOSE, SERUM 110 MG/DL (60-99); POTASSIUM, SERUM 3.4 MMOL/L (3.5-5.3); SGOT(AST) 13 U/L (5-40); SGPT(ALT) 19 U/L (5-65); SODIUM, SERUM 138 MMOL/L (135-148); TOTAL PROTEIN 6.2 G/DL (6.0-8.5)
[2017-03-26 06:36] LABS: A/G RATIO 0.6 (0.7-1.9); ALBUMIN 2.2 G/DL (3.5-5.0); ALKALINE PHOSPHATASE 116 U/L (45-117); BUN (BLOOD UREA NITROGEN) 18 MG/DL (6-23); TOTAL BILIRUBIN 1.1 MG/DL (0-1.2)
[2017-03-26 16:13] LABS: BUN (BLOOD UREA NITROGEN) 18 MG/DL (6-23); CHLORIDE, SERUM 99 MMOL/L (96-112); CO2 (CARBON DIOXIDE) 29 MMOL/L (24-34); CREATININE 1.59 MG/DL (0.70-1.30); GFR AFRICAN AMERICAN 49 ML/MIN (>=60); GFR NON AFRICAN AMERICAN 42 ML/MIN (>=60); GLUCOSE, SERUM 113 MG/DL (60-99); POTASSIUM, SERUM 3.4 MMOL/L (3.5-5.3); SODIUM, SERUM 136 MMOL/L (135-148)
[2017-03-27 07:24] LABS: BASOPHILS 0.2 %; BASOPHILS ABSOLUTE 0.01 10/3/uL (0.0-0.16); EOSINOPHILS 6.5 %; EOSINOPHILS ABSOLUTE 0.43 10/3/uL (0.0-0.53); HEMOGLOBIN 8.5 g/dL (13.6-17.8); IMMATURE GRANULOCYTES 0.2 %; IMMATURE GRANULOCYTES ABSOLUTE 0.01 10/3/uL (0.0-0.11); LYMPHOCYTES 11.3 %; LYMPHOCYTES ABSOLUTE 0.75 10/3/uL (0.67-4.30); MEAN CORPUS HGB CONC 34.1 g/dL (32.0-36.0); MEAN PLATELET VOLUME 9.5 fL (9.2-13.0); MONOCYTES 12.5 %; MONOCYTES ABSOLUTE 0.83 10/3/uL (0.21-1.20); NEUTROPHILS 69.3 %; NEUTROPHILS ABSOLUTE 4.62 10/3/uL (2.02-8.40); PLATELET COUNT 199 10/3/uL (150-400); RBC DISTRIBUTION WIDTH 14.7 % (12.0-16.0); RED CELL COUNT 2.83 10/6/uL (4.7-6.1); WHITE BLOOD CELLS 6.7 10/3/uL (4.5-10.5)
[2017-03-27 07:26] LABS: HEMATOCRIT 24.9 % (40.0-51.0); MANUAL DIFF NO %
[2017-03-27 07:27] LABS: CHLORIDE, SERUM 101 MMOL/L (96-112); POTASSIUM, SERUM 3.5 MMOL/L (3.5-5.3); SODIUM, SERUM 137 MMOL/L (135-148)
[2017-03-27 07:29] LABS: ALBUMIN 2.1 G/DL (3.5-5.0); BUN (BLOOD UREA NITROGEN) 21 MG/DL (6-23); CALCIUM, SERUM 8.2 MG/DL (8.5-10.4); CO2 (CARBON DIOXIDE) 27 MMOL/L (24-34); GLUCOSE, SERUM 101 MG/DL (60-99)
[2017-03-27 07:35] LABS: A/G RATIO 0.6 (0.7-1.9); GFR AFRICAN AMERICAN 53 ML/MIN (>=60); GFR NON AFRICAN AMERICAN 46 ML/MIN (>=60); GLOBULIN 3.7 G/DL (2.5-4.1); SGOT(AST) 19 U/L (5-40); SGPT(ALT) 16 U/L (5-65); TOTAL PROTEIN 5.8 G/DL (6.0-8.5)
[2017-03-27 07:36] LABS: ALKALINE PHOSPHATASE 104 U/L (45-117); TOTAL BILIRUBIN 0.6 MG/DL (0-1.2)
[2017-03-28 05:30] LABS: BASOPHILS 0.3 %; BASOPHILS ABSOLUTE 0.02 10/3/uL (0.0-0.16); HEMATOCRIT 25.5 % (40.0-51.0); HEMOGLOBIN 8.7 g/dL (13.6-17.8); IMMATURE GRANULOCYTES 0.4 %; IMMATURE GRANULOCYTES ABSOLUTE 0.03 10/3/uL (0.0-0.11); LYMPHOCYTES 7.9 %; LYMPHOCYTES ABSOLUTE 0.56 10/3/uL (0.67-4.30); MEAN CORPUS HGB CONC 34.1 g/dL (32.0-36.0); MEAN CORPUSCULAR HEMOGLOB 29.7 pg (26.0-34.0); MEAN PLATELET VOLUME 9.5 fL (9.2-13.0); MONOCYTES 10.7 %; MONOCYTES ABSOLUTE 0.76 10/3/uL (0.21-1.20); NEUTROPHILS 73.7 %; NEUTROPHILS ABSOLUTE 5.24 10/3/uL (2.02-8.40); PLATELET COUNT 219 10/3/uL (150-400); RBC DISTRIBUTION WIDTH 14.9 % (12.0-16.0); RED CELL COUNT 2.93 10/6/uL (4.7-6.1); WHITE BLOOD CELLS 7.1 10/3/uL (4.5-10.5)
[2017-03-28 05:33] LABS: MANUAL DIFF NO %
[2017-03-28 05:42] LABS: BUN (BLOOD UREA NITROGEN) 19 MG/DL (6-23); CALCIUM, SERUM 8.5 MG/DL (8.5-10.4); CHLORIDE, SERUM 100 MMOL/L (96-112); CO2 (CARBON DIOXIDE) 27 MMOL/L (24-34); CREATININE 1.42 MG/DL (0.70-1.30); GFR AFRICAN AMERICAN 56 ML/MIN (>=60); GFR NON AFRICAN AMERICAN 49 ML/MIN (>=60); GLUCOSE, SERUM 115 MG/DL (60-99); POTASSIUM, SERUM 3.4 MMOL/L (3.5-5.3); SODIUM, SERUM 137 MMOL/L (135-148)
[2017-03-30] MEDS ORDERED: Z300 PO (09:53)
[2017-03-30] MEDS ORDERED: COLCH6 PO (09:53)
[2017-03-30] MEDS ORDERED: ELIQUIS 5 MG TAB5 MG PO (09:53)
[2017-06-04] MEDS ORDERED: TOPXL25 PO (10:44)
[2017-06-04] MEDS ORDERED: LEXAPRO20 PO (10:46)
[2017-06-04] MEDS ORDERED: Z300 PO (10:47)
[2017-06-05] MEDS ORDERED: MAGOX4 PO (11:07)
[2017-06-05] MEDS ORDERED: ATV.5 PO (11:08)
[2017-06-05] MEDS ORDERED: PROBIOTIC PO (11:08)
[2017-08-11] MEDS ORDERED: NORV25 PO (13:21)
== END 2017-03-30 10:56 | disposition home or self-care (01) | DRG 406 ==
LOC: ER 20:52 → 5SO 22:09
PROVIDERS: Internal Medicine; Internal Medicine Cardiovascular Disease; Nurse Practitioner; Specialist
PROC: 0DB60ZZ Excision of Stomach, Open Approach (ICD-10-PCS; 2017-03-20)
PROC: 0DTJ0ZZ Resection of Appendix, Open Approach (ICD-10-PCS; principal; 2017-03-20 15:45)
PROC: 0F9G0ZZ Drainage of Pancreas, Open Approach (ICD-10-PCS; 2017-03-20 15:45)
PROC: 0FT40ZZ Resection of Gallbladder, Open Approach (ICD-10-PCS; 2017-03-20 15:45)
PROC: B246YZZ Ultrasonography of Right and Left Heart using Other Contrast (ICD-10-PCS; 2017-03-24)
PROC: B245ZZ4 Ultrasonography of Left Heart, Transesophageal (ICD-10-PCS; 2017-03-27)
DX: K86.3 Pseudocyst of pancreas (principal); K35.80 Unspecified acute appendicitis; E87.70 Fluid overload, unspecified; E11.22 Type 2 diabetes mellitus with diabetic chronic kidney disease; I48.0 Paroxysmal atrial fibrillation; K81.9 Cholecystitis, unspecified; I25.10 Atherosclerotic heart disease of native coronary artery without angina pectoris; Z95.5 Presence of coronary angioplasty implant and graft; I35.1 Nonrheumatic aortic (valve) insufficiency; I12.9 Hypertensive chronic kidney disease with stage 1 through stage 4 chronic kidney disease, or unspecified chronic kidney disease; N18.9 Chronic kidney disease, unspecified; E78.00 Pure hypercholesterolemia, unspecified; Z79.82 Long term (current) use of aspirin; Z79.899 Other long term (current) drug therapy
CPT/HCPCS: 74176; 80048; 80053; 80307; 81001; 82248; 83690; 83735; 84132; 84439; 84443; 84484; 85025; 85610; 85730; 87015; 87070; 87075; 87102; 87116; 87205; 88304; 88305; 92960; 93005; 93312; 93320; 93325; 93970; 96374; 96376; 99285; A9270-GY; C8929; C9113; J0360; J0461; J0690; J1170; J2250; J2270; J2370; J2405; J2543; J2550; J2710; J2765; J2795; J3010; P9045; Q9957; Q9967

== ENCOUNTER 2017-04-07 15:57 | Inpatient (IN) | payer OTHER ==
--- NOTE | ~2017-04-07 | DS ---
Discharge Summary [address] [place]. [address] NAME: LIO LAMBERT : 43 STATUS : DIS IN PAT#: [id number] AGE: 71 ADM/REG DATE : 04/07/17 MR#: [id number] REPORT SERV DATE: 04/14/17 DICTATED BY: GIOVANA BAI DATE: 04/13/17 REPORT STATUS : Draft TRANSCRIBED BY: MODL DATE: 04/13/17 ADMISSION DATE: 04/07/2017 DISCHARGE DATE: 04/13/2017 DISCHARGE DIAGNOSES: 1. Fever, resolved on broad-spectrum antimicrobial therapy with negative cultures in the setting of 03/20/2017, exploratory laparotomy, pancreatic pseudocyst, gastrostomy with biopsy of pancreatic pseudocysts, cholecystectomy, and appendectomy for pancreatic pseudocysts, cholecystitis, and appendicitis. CT imaging this admission chest, abdomen, and pelvis demonstrating extensive soft tissue attenuation and small amounts of fluid mixed with gas in the peripancreatic flat planes where there are multiloculated large pancreatic pseudocyst on prior CT, probably representing benign postsurgical appearance with gas introduced during the reported drainage procedure. 2. Status post cholecystectomy and appendectomy. 3. Nonobstructing left nephrolithiasis. 4. Diffusely thickened bladder, slightly more prominent than on prior CT. 5. No evidence of pulmonary embolus. 6. Multisegment dense airspace consolidation left lower lobe with appearance of multisegment atelectasis, though an underlying dense pneumonia may be present. 7. Subsegmental atelectasis, posterior right lower lobe and lingular segment. 8. Moderate coronary artery calcification. 9. Anasarca. 10.Hypoalbuminemia. Thought to be multifactorial including nutrition and possible chronic liver disease. 11.Transient hyponatremia, resolved. 12.Suspected chronic liver disease. 13.Splenomegaly. 14.Chronic kidney disease 3. 15.Acute kidney injury, present on admission. 16.Hypertension. 17.Chronic atrial fibrillation, on Eliquis. 18.Chronic anemia. 19.Coronary artery disease with previous percutaneous coronary intervention. 20.Diarrhea present on admission, resolved, negative stool for Clostridium difficile. 21.History of hospitalization in January of this year with acute pancreatitis, acute kidney injury, alcohol abuse, and suspected alcoholic hepatitis. 22.Elevated ferritin with low iron saturation. Ferritin level previously 4002 on 01/23/2017, now 1308. 23.Monoclonal gammopathy, faint IgM lambda in serum with negative urine, normal quantitative immunoglobulins and elevated free light chains with kappa 8.25, lambda 4.48, ratio 1.84. Further outpatient heme/onc evaluation to be performed. 24.Type 2 diabetes with hemoglobin A1c of 6.6, January 2017. 25.History of bladder and prostate cancer, treated by Dr. Wang. 26.Gout, controlled on medication. OPERATIONS AND PROCEDURES: None. Discharge Summary [address] [address] NAME: LIO LAMBERT : 43 STATUS : DIS IN PAT#: [id number] AGE: 71 ADM/REG DATE : 04/07/17 MR#: [id number] REPORT SERV DATE: 04/14/17 DICTATED BY: GIOVANA BAI DATE: 04/13/17 REPORT STATUS : Draft TRANSCRIBED BY: ASHANTI DATE: 04/13/17 PRESENT ILLNESS: This is a 71-year-old white male, who was triaged in the emergency room on 04/07/2017 at 1126 hours with complaints of low blood pressure and fever. Admission vital signs, blood pressure 105/59, temperature 97.6, pulse 90, respirations 22, O2 saturation 98%. An extensive evaluation was done in the emergency room. Working diagnoses were nausea, fever, anemia, and diarrhea. He was referred to the Hospitalist Service. He was seen by Dr. Rebel Strickland and admitted as described on admission history and physical examination. Additional history included the above-mentioned hospitalization in January followed by the above-mentioned surgical procedure on 03/20/2017. The patient had a low-grade fever, associated with night sweats and chills subsequent to his March hospitalization. In addition, he developed watery diarrhea. ADDITIONAL HISTORY: Per Dr. Strickland. PHYSICAL EXAMINATION: Per Dr. Strickland. ADMISSION LABORATORY: Per Dr. Strickland. HOSPITAL COURSE: He was admitted by Dr. Strickland with problem list: 1. Left lower lobe pneumonia. 2. Transaminitis. 3. Hypoalbuminemia. 4. Diarrhea. 5. Hyponatremia. 6. Hypokalemia. 7. Status post recent appendectomy and cholecystectomy. 8. Pancreatic pseudocyst, status post drainage. He was admitted to [address] [place] [address]. Cultures were obtained. He was started on Azactam and vancomycin because of his recent diarrhea. Stool was checked for C. diff. His home medications were continued. His hospitalist care was assumed by the undersigned and he was also seen in followup by his surgeon, Dr. Ni. His CT scans were reviewed. He did not have characteristic symptoms of a pneumonic illness. It was felt that his infection source was intraabdominal. ID consultation was obtained with Dr. Roland Sanchez. Dr. Sanchez thought that he had an intraabdominal source. He suggested changing his antimicrobial therapy to Zosyn. Discharge Summary [address] [address] NAME: LIO LAMBERT : 43 STATUS : DIS IN PAT#: [id number] AGE: 71 ADM/REG DATE : 04/07/17 MR#: [id number] REPORT SERV DATE: 04/14/17 DICTATED BY: GIOVANA BAI DATE: 04/13/17 REPORT STATUS : Draft TRANSCRIBED BY: ASHANTI DATE: 04/13/17 Of note is that the time his antimicrobial therapy was changed, he was already improving on Azactam and vancomycin. A stool had checked negative for C. diff and his diarrhea was resolving. During the course of his hospitalization, he had no fever. A procalcitonin which was 1.05 on 04/07/2017 had fallen to 0.4 on 04/10/2017. A C-reactive protein on 04/10/2017 was 184. His white count remained normal from admission 8.9 to discharge 7.4. Blood cultures obtained on admission were no growth. In addition to negative stool for C. diff, stool for cryptosporidium and Giardia antigens were negative. There was significant clinical improvement during his hospitalization with the above- mentioned therapy with improvement in his appetite and resolution of his diarrhea. He maintained some upper abdominal tenderness and abdominal distention. His hemoglobin was low on admission at 9.1 and was 8.4 at discharge. A stool for Hemoccult was negative. His other evaluation included a ferritin as noted above. A B12 had been high in February and was not repeated. A TSH was normal in early March. A serum protein electrophoresis and immunofixation were performed with findings as noted above. In view of his previous cancer history, it was felt he should have further evaluation of his monoclonal gammopathy as an outpatient. He was on Demadex as an outpatient which was not on his home medication. He had some edema on admission. He was thought to have some chronic liver disease based on his evaluation and chemistries. He was started on Aldactone. He was given one dose of Bumex and albumin. His admission weight was 112.689 kg, it increased to 114.36, and it was 112.17 at discharge. At discharge, he was not dyspneic. Had no significant cough, a room air sat of 94%, and unchanged basilar rales. Dr. Sanchez felt it would be appropriate to continue two weeks of broad-spectrum antimicrobial therapy with consideration of followup imaging. A PICC line was placed. Zosyn was arranged for one further week. When he initially began to improve, he asked to be discharged on a daily basis. Today, it is felt he has achieved a level of improvement and stability where he can be safely discharged. He will follow up with Dr. Ni in the next one to two weeks. He will see Dr. Kathleen in a week. He will have home health care for his antimicrobial administration and a CBC and CMP were requested for of this week, called and faxed to Dr. Kathleen for review. He is to eat a no added sodium diet. He is to restrict his fluid intake to 1500 mL per 24 hours. DISCHARGE MEDICATIONS: Zyloprim 300 mg daily, Eliquis 5 mg twice daily, Wellbutrin 150 mg at Discharge Summary [address] [address] NAME: LIO LAMBERT : 43 STATUS : DIS IN [facility]#: [id number] AGE: 71 ADM/REG DATE : 04/07/17 MR#: [id number] REPORT SERV DATE: 04/14/17 DICTATED BY: GIOVANA BAI DATE: 04/13/17 REPORT STATUS : Draft TRANSCRIBED BY: MODL DATE: 04/13/17 bedtime, colchicine 0.6 mg at bedtime, Creon 36,000 units after meals, Lopressor 25 mg at bedtime, Mycostatin one tablet four times daily, Protonix 40 mg daily, Zosyn 3.375 g IV every 8 hours through 04/20/2017, potassium 20 mEq twice daily, Aldactone 50 mg daily, Lipitor 40 mg daily, torsemide 10 mg daily. Antibiotic doses adjusted to weight and edema. Discharge time greater than 30 minutes. DICTATED BY: Giovana Bai M.D. DD/ASHANTI Giovana Bai M.D. / [id number] CC: Libby Camejo M.D. James C. Balvich, MD John Gwin Jr., M.D. Mark Anderson, M.D. Jeffrey K. Mullins, MD
--- NOTE | ~2017-04-07 | CN ---
Consultation Report [facility] [address] [place]. [address] NAME: LIO LAMBERT : 43 STATUS : ADM IN [facility]#: [id number] AGE: 71 ADM/REG DATE : 04/07/17 MR#: [id number] REPORT SERV DATE: 04/10/17 DICTATED BY: FAIZA FIORE DATE: 04/10/17 REPORT STATUS : Draft TRANSCRIBED BY: MODL DATE: 04/10/17 INFECTIOUS DISEASE CONSULTATION DATE OF CONSULTATION: REASON FOR REFERRAL: Evaluation and treatment of fever. HISTORY OF PRESENT ILLNESS: The patient is a 71-year-old male. He has a history of hypertension, coronary artery disease and atrial fibrillation, for which he is on Eliquis. He has a history of alcohol abuse, currently abstinent. He was admitted on 03/20 with abdominal pain, nausea, and vomiting and had symptoms highly suggestive of an appendicitis. He was taken to surgery by Dr. Ni with findings indeed of appendicitis, but he also was found to have a pancreatitis and a pseudocyst. There was a chronic-appearing inflammation in his gallbladder as well and that was removed. The pseudocyst was drained. Appendectomy was performed. He received appropriate perioperative antibiotics. Cultures sent from that procedure were all negative. He was treated during that hospital stay with antibiotics preoperatively, and then antibiotics were stopped. He was discharged on 03/30, but having some low-grade fevers. Initially, his temperature began to climb as high as 102 degrees. He began to feel worse, weaker and developed nausea, vomiting and then diarrhea and so was readmitted on 04/07. A C diff was checked and that was found to be negative. He was started empirically on vancomycin and aztreonam after CT of the chest, abdomen, and pelvis showed changes suggestive of a left-sided pneumonia, although he really had no symptoms or physical findings to suggest that. It was done without contrast, and the abdomen and pelvis did show a soft tissue mass in the area of the pseudocyst and some air bubbles, but all was felt to be expected appearance following the extensive surgery that he had. Since arriving and started the aztreonam and vancomycin, his fever has not recurred, his white blood cell count has been normal, and he is generally feeling better. Nausea has resolved. He has been able to begin eating, clear liquids and tolerating those and keeping those down. He does continue to have loose stool. He is not having severe abdominal pain or cramping and not having dysuria. Urinalysis has been unremarkable. No rash. No signs of infection at old IV sites. PAST MEDICAL HISTORY: Otherwise, unremarkable. MEDICATIONS: As described above. ALLERGIES: NO KNOWN ANTIMICROBIAL ALLERGIES. SOCIAL HISTORY: He is retired. , his is with him in the room. Previously drank heavily. Has smoked in the past, but not at present. FAMILY HISTORY: Noncontributory. PHYSICAL EXAMINATION: Consultation Report [address] [address] NAME: LIO LAMBERT : 43 STATUS : ADM IN [facility]#: [id number] AGE: 71 ADM/REG DATE : 04/07/17 MR#: [id number] REPORT SERV DATE: 04/10/17 DICTATED BY: FAIZA FIORE DATE: 04/10/17 REPORT STATUS : Draft TRANSCRIBED BY: ASHANTI DATE: 04/10/17 GENERAL: A nontoxic, elderly male, in no acute distress. He is alert and oriented x3. VITAL SIGNS: His temperature 97.5 at present with a pulse of 80, respirations 16, blood pressure 100/61, weight is 113 kg. HEENT: Sclerae clear. No oral lesions. LUNGS: There are rales heard bilaterally in the bases, otherwise clear. HEART: Irregular. ABDOMEN: Soft and nontender. Positive bowel sounds. Incision is well healed. EXTREMITIES: Without clubbing or cyanosis. No signs of cellulitis. LABORATORY DATA: White blood cell count when he came back in was 8.9 and 6 today with hematocrit 24.6, platelets 300, unremarkable differential with 73 segs and no bands, there were 14% bands at admission. BUN and creatinine 20 and 1.14. Procalcitonin 1.05 when he came in, 0.40 today. Creatinine was 1.51, is now 1.14. SGOT was 120, now 46; SGPT 105, now 61; lipase was 124. IMPRESSION: Fevers, 102 as an outpatient, but better here on empiric antibiotics. Potential source to consider would include pneumonia with CT findings worrisome for that, but the patient's presentation symptoms and physical exam do not fit that, so I do not think that is the source. Secondly, an intra-abdominal source, I would think that is most likely, although there is not anything definite on the CT scan that would explain it and have reviewed those findings with Dr. Ni. RECOMMENDATIONS: 1. Since I do not think it is pneumonia, we will change the antibiotics to Zosyn to better focus on GI pathogens. 2. If he does not respond quickly to this over the next couple of days, repeat CT scan with contrast. 3. Finally, I will follow the patient with you. I appreciate very much your consulting on this patient. PINKY Faiza Fiore M.D. / [id number] CC: Libby Camejo M.D.
--- NOTE | ~2017-04-07 | HP ---
History And Physical [id number] [facility] [place]. [address] NAME: LIO LAMBERT : 43 STATUS : ADM IN [facility]#: [id number] AGE: 71 ADM/REG DATE : 04/07/17 MR#: [id number] REPORT SERV DATE: 04/08/17 DICTATED BY: JONA ROQUE DATE: 04/07/17 REPORT STATUS : Draft TRANSCRIBED BY: MODDonis DATE: 04/07/17 DATE OF ADMISSION: 04/07/2017 POINT OF ENTRY: [facility] Emergency Department. CHIEF COMPLAINT: Fevers, night sweats, and chills. HISTORY OF PRESENT ILLNESS: Mr. Lambert is a 71-year-old gentleman with a history of alcohol abuse complicated by recent admissions for alcoholic pancreatitis complicated by formation of pancreatic pseudocyst, who presents to the emergency department today with reports of fevers, night sweats, and chills. The patient was recently admitted to the [facility] on 03/20/2017 for abdominal pain, nausea, vomiting, and anorexia, and at that time found to have evidence concerning for possible early developing acute appendicitis. The patient underwent appendectomy, cholecystectomy, as well as pseudocyst drainage, and was reportedly discharged to home about eight days ago. His hospital course was complicated by development of atrial fibrillation, which was unable to be cardioverted secondary to evidence of a left atrial thrombus. The patient states that since his discharge to home he has had persistent low-grade fevers of 99 to 100 degrees Fahrenheit with associated night sweats and chills. The patient also reports anorexia with poor appetite as well as an abnormal taste in the mouth and everything tastes sour. He continues to report weakness, fatigue, and weight loss. The patient also developed some very watery diarrhea since his discharge from the hospital. He denies any chest pain, palpitations, shortness of breath, cough, sputum production, abdominal pain, nausea, vomiting, melena, hematochezia, or hematemesis. Comprehensive system otherwise negative unless listed in history present illness. Initial evaluation in the emergency department notable for stable vital signs. Labs notable for a mild recurrent transaminitis. CT of the chest was negative for PE, but did show multisegment diffuse airspace consolidation left lower lobe concerning for pneumonia. CT scan of the abdomen and pelvis showed extensive soft tissue attenuation which Radiology felt was consistent with benign postsurgical appearance of the pseudocyst cystectomy. The patient was subsequently admitted to the Hospitalist Service for further evaluation and management. PREVIOUS MEDICAL HISTORY: 1. Prostate and bladder cancer, status post chemotherapy and radiation. 2. Hypertension. 3. Coronary artery disease with prior PCI. 4. Alcohol abuse, currently abstinent. 5. 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 6. Chronic kidney disease, stage 3. Baseline creatinine 1.4 to 1.6. 7. Atrial fibrillation, on Eliquis. 8. Hypoalbuminemia. History And Physical [address] [address] NAME: LIO LAMBERT : 43 STATUS : ADM IN [facility]#: [id number] AGE: 71 ADM/REG DATE : 04/07/17 MR#: [id number] REPORT SERV DATE: 04/08/17 DICTATED BY: JONA ROQUE DATE: 04/07/17 REPORT STATUS : Draft TRANSCRIBED BY: ASHANTI DATE: 04/07/17 9. Recent admission for a left-sided pleural effusion. PAST SURGICAL HISTORY: 1. Inguinal hernia repair. 2. Appendectomy. 3. Cholecystectomy. 4. Pseudocyst drainage. ALLERGIES: NO KNOWN DRUG ALLERGIES. HOME MEDICATIONS: 1. Allopurinol 300 mg q.h.s. 2. Eliquis 5 mg b.i.d. 3. Atorvastatin 40 mg q.h.s. 4. Wellbutrin 150 mg q.h.s. 5. Colchicine 0.6 mg q.h.s. 6. Creon 36,000 units with meals. 7. Lopressor 25 mg q.h.s. 8. Nystatin 500,000 units four times daily. 9. Protonix 40 mg daily. 10.Potassium chloride 20 mEq b.i.d. SOCIAL HISTORY: Denies any tobacco, alcohol, or illicits. He is a former abuser of alcohol, but is now in abstinence since January. FAMILY HISTORY: Mother with coronary artery disease. Father with dementia. Siblings with prostate cancer. LABS AND IMAGIN. White count is 8.9, hemoglobin is 9.1, hematocrit is 26.5, platelets 298, and INR 1.5. 2. Sodium is 129, potassium 3.0, chloride 96, carbon dioxide 24, BUN 28, creatinine 1.14, glucose is 130, calcium is 8.7, protein is 6.3, albumin is 2.0, bilirubin is 0.6, ALT is 104, AST is 120, and alkaline phosphatase is 184. 3. Procalcitonin is 1.05. 4. BNP 366. 5. Urinalysis: Spec gravity is 1.009. No evidence of any infection. 6. CT of the chest is negative for PE, it shows multi-segment dense airspace consolidation in left lower lobe. 7. CT scan of the abdomen and pelvis shows extensive soft tissue attenuation and small amounts of fluid mixed with gas in the peripancreatic fat planes where there are multiloculated pancreatic pseudocysts on prior CT probably representing benign postsurgical appearance with gas introduced during the reported drainage procedure, status post cholecystectomy and appendectomy, nonobstructing left nephrolithiasis, diffusely thickened bladder slightly more prominent than on prior CT, although the bladder is well distended currently than on prior CT. 8. EKG per my review shows atrial fibrillation with heart rates in the 80s with no evidence of any acute ischemia or infarction. History And Physical [address] [address] NAME: LIO LAMBERT : 41 STATUS : ADM IN [facility]#: [id number] AGE: 71 ADM/REG DATE : 04/07/17 MR#: [id number] REPORT SERV DATE: 04/08/17 DICTATED BY: JONA ROQUE DATE: 04/07/17 REPORT STATUS : Draft TRANSCRIBED BY: MODDonis DATE: 04/07/17 PHYSICAL EXAMINATION: VITAL SIGNS: Temperature is 97.6 degrees Fahrenheit, pulse is 90, respirations 20, saturating 98% on room air, and blood pressure 105/59. On recheck blood pressure now 137/67, pulse of 58. GENERAL: The patient is awake and alert, in no acute distress. Resting comfortably in bed. He is a well-developed, well-nourished, elderly male. HEENT: Atraumatic and normocephalic. Moist mucous membranes. Pupils are equal, round, reactive to light and accommodation. Extraocular eye movements intact. No scleral icterus. NECK: No jugular venous distention. No carotid bruits. CARDIAC: Irregularly irregular rate and rhythm. No murmurs, rubs, or gallops. Normal S1, S2. LUNGS: Does have some left lower lobe inspiratory rhonchi. Otherwise, no wheezes or crackles appreciated. ABDOMEN: Vertical midline surgical incision is clean, dry, and intact. Hypoactive bowel sounds throughout. Does have some mild tenderness to palpation in bilateral lower quadrants. No rebound, guarding, or rigidity. EXTREMITIES: Warm and perfused. No cyanosis, clubbing, or edema. SKIN: Warm and dry. PSYCH: Affect appropriate. NEURO: Alert and oriented x3. Cranial nerves 2 through 12 grossly intact. Speech is normal. Gait not assessed. ASSESSMENT AND PLAN: Mr. Lambert is a 71-year-old gentleman with recent admission for acute appendicitis status post appendectomy, cholecystectomy, as well as pancreatic pseudocyst drainage, who presents with persistent fevers, night sweats, and chills, found to have evidence of a left lower lobe pneumonia. PROBLEM LIST: 1. Left lower lobe pneumonia. 2. Transaminitis. 3. Hypoalbuminemia. 4. Diarrhea. 5. Hyponatremia. 6. Hypokalemia. 7. Status post recent appendectomy and cholecystectomy. 8. Pancreatic pseudocyst status post drainage. PLAN: 1. Left lower lobe pneumonia. We will treat with IV antibiotics of Azactam as well as vancomycin given his recent hospitalization as well as reports of diarrhea. Follow up sputum cultures, blood cultures, as well as urinary antigens. 2. Diarrhea. Given the patient's recent hospitalization as well as exposure to antibiotics and concern for possible C. diff as the alternative source of the patient's fevers, night sweats, and chills we will be judicious with our selection of antibiotics as well as checking stool studies and C. diff, and ova and parasites. 3. Transaminitis. The patient has had intermittent episodes of transaminitis in the last History And Physical [address] [address] NAME: LIO LAMBERT : 41 STATUS : ADM IN [facility]#: [id number] AGE: 71 ADM/REG DATE : 04/07/17 MR#: [id number] REPORT SERV DATE: 04/08/17 DICTATED BY: JONA ROQUE DATE: 04/07/17 REPORT STATUS : Draft TRANSCRIBED BY: ASHANTI DATE: 04/07/17 few months likely related to his alcohol use; however, he has been abstinent for the past three months now. We will check a right upper quadrant ultrasound to better visualize the liver. 4. Hypokalemia. Repleting p.r.n. per protocol. 5. Status post appendectomy and cholecystectomy. CT scan of the abdomen and pelvis showed benign postsurgical changes that would likely not explain the patient's reported fevers, night sweats, and chills. We will defer to Surgery. 6. History of alcohol abuse. The patient states he has currently been abstinent since January. 7. Hypoalbuminemia. We will cautiously hydrate the patient given the patient's history of hypoalbuminemia leading to volume overload state. 8. DVT prophylaxis. The patient is on Eliquis. CODE STATUS: The patient wished to be full code. JCB/MODL Jona Roque MD / [id number] CC: MD Ivet Benson M.D.
[2017-04-07 10:11] LABS: A/G RATIO 0.5 (0.7-1.9); ALKALINE PHOSPHATASE 187 U/L (45-117); BUN (BLOOD UREA NITROGEN) 27 MG/DL (6-23); CHLORIDE, SERUM 99 MMOL/L (96-112); CO2 (CARBON DIOXIDE) 26 MMOL/L (24-34); CREATININE 1.51 MG/DL (0.70-1.30); GFR AFRICAN AMERICAN 52 ML/MIN (>=60); GFR NON AFRICAN AMERICAN 45 ML/MIN (>=60); GLUCOSE, SERUM 126 MG/DL (60-99); POTASSIUM, SERUM 3.1 MMOL/L (3.5-5.3); SGOT(AST) 120 U/L (5-40); SGPT(ALT) 105 U/L (5-65); SODIUM, SERUM 134 MMOL/L (135-148); TOTAL BILIRUBIN 0.6 MG/DL (0-1.2); TOTAL PROTEIN 6.3 G/DL (6.0-8.5)
[2017-04-07 10:12] LABS: GLOBULIN 4.3 G/DL (2.5-4.1)
[2017-04-07 15:35] LABS: BASOPHILS 0.2 %; BASOPHILS ABSOLUTE 0.02 10/3/uL (0.0-0.16); EOSINOPHILS 0.6 %; EOSINOPHILS ABSOLUTE 0.05 10/3/uL (0.0-0.53); ER CBC TAT 0 Hrs 08 Mins; HEMATOCRIT 26.5 % (40.0-51.0); HEMOGLOBIN 9.1 g/dL (13.6-17.8); IMMATURE GRANULOCYTES 0.6 %; IMMATURE GRANULOCYTES ABSOLUTE 0.05 10/3/uL (0.0-0.11); LYMPHOCYTES 7.1 %; LYMPHOCYTES ABSOLUTE 0.63 10/3/uL (0.67-4.30); MEAN CORPUS HGB CONC 34.3 g/dL (32.0-36.0); MEAN CORPUSCULAR HEMOGLOB 29.4 pg (26.0-34.0); MEAN CORPUSCULAR VOLUME 85.8 fL (80-100); MEAN PLATELET VOLUME 9.9 fL (9.2-13.0); MONOCYTES 15.1 %; MONOCYTES ABSOLUTE 1.35 10/3/uL (0.21-1.20); NEUTROPHILS 76.4 %; NEUTROPHILS ABSOLUTE 6.82 10/3/uL (2.02-8.40); RBC DISTRIBUTION WIDTH 15.8 % (12.0-16.0); RED CELL COUNT 3.09 10/6/uL (4.7-6.1); WHITE BLOOD CELLS 8.9 10/3/uL (4.5-10.5)
[2017-04-07 15:36] LABS: MANUAL DIFF NO %; PLATELET COUNT 298 10/3/uL (150-400)
[2017-04-07 15:41] LABS: INTERNATIONAL NORMAL RATI 1.5 UNITS (-)
[2017-04-07 15:42] LABS: PROTIME (NOT ORD) 17.9 SEC (12.0-14.5)
[2017-04-07 15:50] LABS: A/G RATIO 0.5 (0.7-1.9); ALKALINE PHOSPHATASE 184 U/L (45-117); BUN (BLOOD UREA NITROGEN) 28 MG/DL (6-23); CALCIUM, SERUM 8.4 MG/DL (8.5-10.4); CHLORIDE, SERUM 96 MMOL/L (96-112); CO2 (CARBON DIOXIDE) 24 MMOL/L (24-34); CREATININE 1.44 MG/DL (0.70-1.30); GFR AFRICAN AMERICAN 55 ML/MIN (>=60); GFR NON AFRICAN AMERICAN 48 ML/MIN (>=60); GLOBULIN 4.3 G/DL (2.5-4.1); GLUCOSE, SERUM 130 MG/DL (60-99); SGOT(AST) 120 U/L (5-40); SGPT(ALT) 104 U/L (5-65); SODIUM, SERUM 129 MMOL/L (135-148); TOTAL BILIRUBIN 0.6 MG/DL (0-1.2); TOTAL PROTEIN 6.3 G/DL (6.0-8.5)
[~2017-04-07 15:57] MED LIST changes: +COLCH6 PO; +CREON DR 36,001 EACH PO; +ELIQUIS 5 MG TAB5 MG PO; +LIPITOR40 PO; +Z300 PO
[2017-04-07] MEDS ORDERED: WELLSR150 PO (16:30)
[2017-04-07] MEDS ORDERED: LIPITOR40 PO (16:30)
[2017-04-07] MEDS ORDERED: LOP25 PO (16:30)
[2017-04-07] MEDS ORDERED: PROTONIX PO (16:31)
[2017-04-07] MEDS ORDERED: CREON DR 36,001 EACH PO (16:31)
[2017-04-07] MEDS ORDERED: ELIQUIS 5 MG TAB5 MG PO (16:32)
[2017-04-07] MEDS ORDERED: COLCRYS0.6 MG PO (16:32)
[2017-04-07] MEDS ORDERED: Z300 PO (16:32)
[2017-04-07] MEDS ORDERED: MYCOSTATAB PO (16:33)
[2017-04-07] MEDS ORDERED: KLOR-CON M2020 MEQ PO (16:33)
[2017-04-07 16:36] LABS: PROCALCITONIN 1.05 ng/mL (<0.5)
[2017-04-07 19:59] LABS: WBC (NOT ORDERED) (RFLEX) 0 (0-5)
[2017-04-07 20:08] LABS: ASCORBIC ACID (UR NOT ORDER) NEG (NEG); BILIRUBIN, URINE NEGATIVE (NEG); ER URINALYSIS TAT 0 Hrs 11 Mins; KETONE, URINE NEGATIVE (NEG); LEUKOCYTE ESTERASE(NOT OR NEG (NEG); NITRITE (URINE) NEG (NEG)
[2017-04-08 10:01] LABS: BASOPHILS 0.1 %; BASOPHILS ABSOLUTE 0.01 10/3/uL (0.0-0.16); EOSINOPHILS 0.9 %; EOSINOPHILS ABSOLUTE 0.07 10/3/uL (0.0-0.53); HEMATOCRIT 24.4 % (40.0-51.0); HEMOGLOBIN 8.3 g/dL (13.6-17.8); IMMATURE GRANULOCYTES 0.5 %; IMMATURE GRANULOCYTES ABSOLUTE 0.04 10/3/uL (0.0-0.11); LYMPHOCYTES 11.3 %; LYMPHOCYTES ABSOLUTE 0.84 10/3/uL (0.67-4.30); MEAN CORPUSCULAR HEMOGLOB 29.3 pg (26.0-34.0); MEAN CORPUSCULAR VOLUME 86.2 fL (80-100); MEAN PLATELET VOLUME 9.9 fL (9.2-13.0); MONOCYTES 12.3 %; MONOCYTES ABSOLUTE 0.91 10/3/uL (0.21-1.20); NEUTROPHILS 74.9 %; NEUTROPHILS ABSOLUTE 5.55 10/3/uL (2.02-8.40); PLATELET COUNT 271 10/3/uL (150-400); RBC DISTRIBUTION WIDTH 15.7 % (12.0-16.0); RED CELL COUNT 2.83 10/6/uL (4.7-6.1); WHITE BLOOD CELLS 7.4 10/3/uL (4.5-10.5)
[2017-04-08 10:05] LABS: MANUAL DIFF NO %
[2017-04-08 10:13] LABS: BUN (BLOOD UREA NITROGEN) 28 MG/DL (6-23); CHLORIDE, SERUM 100 MMOL/L (96-112); CO2 (CARBON DIOXIDE) 27 MMOL/L (24-34); CREATININE 1.36 MG/DL (0.70-1.30); GFR AFRICAN AMERICAN 59 ML/MIN (>=60); GFR NON AFRICAN AMERICAN 51 ML/MIN (>=60); GLUCOSE, SERUM 104 MG/DL (60-99); POTASSIUM, SERUM 3.3 MMOL/L (3.5-5.3); SODIUM, SERUM 135 MMOL/L (135-148)
[2017-04-09 04:12] LABS: HEMATOCRIT 24.9 % (40.0-51.0); HEMOGLOBIN 8.3 g/dL (13.6-17.8); MEAN CORPUS HGB CONC 33.3 g/dL (32.0-36.0); MEAN CORPUSCULAR HEMOGLOB 28.7 pg (26.0-34.0); MEAN CORPUSCULAR VOLUME 86.2 fL (80-100); MEAN PLATELET VOLUME 9.6 fL (9.2-13.0); PLATELET COUNT 282 10/3/uL (150-400); RED CELL COUNT 2.89 10/6/uL (4.7-6.1); WHITE BLOOD CELLS 6.1 10/3/uL (4.5-10.5)
[2017-04-09 04:13] LABS: MANUAL DIFF YES %
[2017-04-09 04:14] LABS: INTERNATIONAL NORMAL RATI 1.7 UNITS (-); PROTIME (NOT ORD) 19.5 SEC (12.0-14.5)
[2017-04-09 04:24] LABS: ALBUMIN 1.7 G/DL (3.5-5.0); CHLORIDE, SERUM 103 MMOL/L (96-112); CREATININE 1.19 MG/DL (0.70-1.30); DIRECT BILIRUBIN 0.2 MG/DL (0.0-0.4); FERRITIN 1308 NG/ML (26-388); GFR AFRICAN AMERICAN 70 ML/MIN (>=60); GFR NON AFRICAN AMERICAN 60 ML/MIN (>=60); GLUCOSE, SERUM 108 MG/DL (60-99); INDIRECT BILIRUBIN(NOT ORDER) 0.5 MG/DL (0.1-0.9); IRON BINDING CAPACITY 259 MCG/DL (250-450); IRON, SERUM 19 MCG/DL (35-150); POTASSIUM, SERUM 4.1 MMOL/L (3.5-5.3); PREALBUMIN 6.3 MG/DL (17.0-43.0); SGOT(AST) 46 U/L (5-40); SGPT(ALT) 61 U/L (5-65); SODIUM, SERUM 133 MMOL/L (135-148); TOTAL BILIRUBIN 0.7 MG/DL (0-1.2); TOTAL PROTEIN 5.7 G/DL (6.0-8.5)
[2017-04-09 04:26] LABS: ALKALINE PHOSPHATASE 151 U/L (45-117); BUN (BLOOD UREA NITROGEN) 23 MG/DL (6-23); CO2 (CARBON DIOXIDE) 21 MMOL/L (24-34)
[2017-04-09 04:39] LABS: BAND NEUTROPHILS 14 %; EOSINOPHILS 4 %; EOSINOPHILS ABSOLUTE (CALC) 0.24 10/3/uL (0.0-0.53); GIANT PLATELET RARE; IMMATURE GRANS ABSOLUTE (CALC) 0.06 10/3/uL (0.0-0.11); LYMPHOCYTES 13 %; LYMPHOCYTES ABSOLUTE (CALC) 0.79 10/3/uL (0.67-4.30); METAMYELOCYTES 1 %; MONOCYTES 1 %; MONOCYTES ABSOLUTE (CALC) 0.06 10/3/uL (0.21-1.20); NEUTROPHILS ABSOLUTE (CALC) 4.94 10/3/uL (2.02-8.40); SEGMENTED NEUTROPHIL (0) 67 %; TOTAL NUCLEATED CELLS 100
[2017-04-09 04:40] LABS: BURR CELLS 1+ (3-10/OIF) (0-2/OIF); PLATELET ESTIMATE ADQ (ADEQUATE)
[2017-04-09 22:15] LABS: T PROTEIN (ELECT)(NOT OR 5.4 G/DL (6.0-8.5)
[2017-04-10 06:32] LABS: BUN (BLOOD UREA NITROGEN) 20 MG/DL (6-23); CALCIUM, SERUM 7.9 MG/DL (8.5-10.4); CHLORIDE, SERUM 105 MMOL/L (96-112); CO2 (CARBON DIOXIDE) 23 MMOL/L (24-34); CREATININE 1.14 MG/DL (0.70-1.30); GFR AFRICAN AMERICAN 74 ML/MIN (>=60); GFR NON AFRICAN AMERICAN 63 ML/MIN (>=60); GLUCOSE, SERUM 102 MG/DL (60-99); POTASSIUM, SERUM 4.3 MMOL/L (3.5-5.3); SODIUM, SERUM 137 MMOL/L (135-148); VANCOMYCIN TROUGH 14.6 MCG/ML (10.0-20.0)
[2017-04-10 06:40] LABS: HEMATOCRIT 24.6 % (40.0-51.0); HEMOGLOBIN 8.2 g/dL (13.6-17.8); MEAN CORPUS HGB CONC 33.3 g/dL (32.0-36.0); MEAN CORPUSCULAR HEMOGLOB 28.7 pg (26.0-34.0); MEAN PLATELET VOLUME 9.3 fL (9.2-13.0); PLATELET COUNT 300 10/3/uL (150-400); RBC DISTRIBUTION WIDTH 15.9 % (12.0-16.0); RED CELL COUNT 2.86 10/6/uL (4.7-6.1)
[2017-04-10 06:41] LABS: MANUAL DIFF YES %
[2017-04-10 07:35] LABS: EOSINOPHILS 2 %; EOSINOPHILS ABSOLUTE (CALC) 0.12 10/3/uL (0.0-0.53); LYMPHOCYTES 15 %; MONOCYTES 10 %; NEUTROPHILS ABSOLUTE (CALC) 4.38 10/3/uL (2.02-8.40); PLATELET ESTIMATE ADQ (ADEQUATE); RBC MORPHOLOGY NORM (NORMAL); SEGMENTED NEUTROPHIL (0) 73 %; TOTAL NUCLEATED CELLS 100
[2017-04-10 11:19] LABS: A/G 0.68 RATIO (0.9-2.10); ALB RELATIVE % 40.5 % (60.0-89.0); ALBUMIN (ELECTRO) 2.19 GM/DL (3.2-5.5); ALPHA 1 (ELECTRO) 0.43 GM/DL (0.1-0.4); ALPHA 2 (ELECTRO) 0.99 GM/DL (0.5-1.10); ALPHA 2 RELAT % 18.3 % (4.5-26.0); GAMMA GLOBULIN (SPE) 1.09 G/DL (0.70-1.60); GAMMA RELAT % 20.2 % (6.0-22.0)
[2017-04-10 20:26] LABS: IMMUNOGLOBULIN A 140 MG/DL (70-420); IMMUNOGLOBULIN G 1000 MG/DL (673-1464); IMMUNOGLOBULIN M 191 MG/DL (30-270)
[2017-04-11 07:40] LABS: HEMATOCRIT 24.2 % (40.0-51.0); MEAN CORPUS HGB CONC 33.1 g/dL (32.0-36.0); MEAN CORPUSCULAR HEMOGLOB 28.7 pg (26.0-34.0); MEAN CORPUSCULAR VOLUME 86.7 fL (80-100); MEAN PLATELET VOLUME 9.4 fL (9.2-13.0); PLATELET COUNT 324 10/3/uL (150-400); RBC DISTRIBUTION WIDTH 16.3 % (12.0-16.0); RED CELL COUNT 2.79 10/6/uL (4.7-6.1); WHITE BLOOD CELLS 6.9 10/3/uL (4.5-10.5)
[2017-04-11 07:42] LABS: MANUAL DIFF YES %
[2017-04-11 07:43] LABS: BUN (BLOOD UREA NITROGEN) 17 MG/DL (6-23); CHLORIDE, SERUM 106 MMOL/L (96-112); CO2 (CARBON DIOXIDE) 23 MMOL/L (24-34); CREATININE 1.22 MG/DL (0.70-1.30); GFR AFRICAN AMERICAN 68 ML/MIN (>=60); GFR NON AFRICAN AMERICAN 58 ML/MIN (>=60); GLUCOSE, SERUM 105 MG/DL (60-99); POTASSIUM, SERUM 4.2 MMOL/L (3.5-5.3)
[2017-04-11 07:44] LABS: SODIUM, SERUM 129 MMOL/L (135-148)
[2017-04-11 09:52] LABS: BAND NEUTROPHILS 36 %; EOSINOPHILS 3 %; EOSINOPHILS ABSOLUTE (CALC) 0.21 10/3/uL (0.0-0.53); LYMPHOCYTES 11 %; LYMPHOCYTES ABSOLUTE (CALC) 0.76 10/3/uL (0.67-4.30); MONOCYTES 9 %; MONOCYTES ABSOLUTE (CALC) 0.62 10/3/uL (0.21-1.20); NEUTROPHILS ABSOLUTE (CALC) 5.31 10/3/uL (2.02-8.40); PLATELET ESTIMATE ADQ (ADEQUATE); SEGMENTED NEUTROPHIL (0) 41 %; TOTAL NUCLEATED CELLS 100
[2017-04-11 09:55] LABS: ELLIPTOCYTES 1+ (3-10/OIF) (0-2/OIF); POLYCHROMASIA 1+ (2-5/OIF) (0-1/OIF); TARGET CELLS OCC (1-2/OIF) (0-1/OIF); TEARDROP SHAPED RBCS OCC (0-2/OIF); TOXIC GRANULATION 1+; VACUOLATED NEUTROPHILES FEW
[2017-04-12 06:39] LABS: BASOPHILS 0.2 %; BASOPHILS ABSOLUTE 0.01 10/3/uL (0.0-0.16); EOSINOPHILS 4.8 %; EOSINOPHILS ABSOLUTE 0.31 10/3/uL (0.0-0.53); HEMOGLOBIN 7.8 g/dL (13.6-17.8); IMMATURE GRANULOCYTES 0.6 %; IMMATURE GRANULOCYTES ABSOLUTE 0.04 10/3/uL (0.0-0.11); LYMPHOCYTES 11.7 %; LYMPHOCYTES ABSOLUTE 0.76 10/3/uL (0.67-4.30); MEAN CORPUS HGB CONC 32.5 g/dL (32.0-36.0); MEAN CORPUSCULAR HEMOGLOB 28.3 pg (26.0-34.0); MEAN PLATELET VOLUME 8.9 fL (9.2-13.0); MONOCYTES 12.2 %; MONOCYTES ABSOLUTE 0.79 10/3/uL (0.21-1.20); NEUTROPHILS 70.5 %; NEUTROPHILS ABSOLUTE 4.57 10/3/uL (2.02-8.40); PLATELET COUNT 321 10/3/uL (150-400); RBC DISTRIBUTION WIDTH 16.4 % (12.0-16.0); RED CELL COUNT 2.76 10/6/uL (4.7-6.1); WHITE BLOOD CELLS 6.5 10/3/uL (4.5-10.5)
[2017-04-12 06:43] LABS: MANUAL DIFF NO %
[2017-04-12 06:46] LABS: BUN (BLOOD UREA NITROGEN) 17 MG/DL (6-23); CHLORIDE, SERUM 106 MMOL/L (96-112); CO2 (CARBON DIOXIDE) 22 MMOL/L (24-34); GFR AFRICAN AMERICAN 69 ML/MIN (>=60); GFR NON AFRICAN AMERICAN 60 ML/MIN (>=60); GLUCOSE, SERUM 100 MG/DL (60-99); POTASSIUM, SERUM 4.5 MMOL/L (3.5-5.3)
[2017-04-12 06:47] LABS: SODIUM, SERUM 136 MMOL/L (135-148)
[2017-04-12 07:21] LABS: PHOSPHORUS, SERUM 3.5 MG/DL (2.5-4.5)
[2017-04-13 06:11] LABS: KAPPA FLC 8.25 mg/dL (0.33-1.94); KAPPA LAMBDA FLC RATIO 1.84 (0.26-1.65); LAMBDA FLC 4.48 mg/dL (0.57-2.63)
[2017-04-13 06:31] LABS: BASOPHILS 0.3 %; BASOPHILS ABSOLUTE 0.02 10/3/uL (0.0-0.16); HEMATOCRIT 25.8 % (40.0-51.0); HEMOGLOBIN 8.4 g/dL (13.6-17.8); IMMATURE GRANULOCYTES 0.7 %; IMMATURE GRANULOCYTES ABSOLUTE 0.05 10/3/uL (0.0-0.11); LYMPHOCYTES 12.9 %; LYMPHOCYTES ABSOLUTE 0.96 10/3/uL (0.67-4.30); MEAN CORPUS HGB CONC 32.6 g/dL (32.0-36.0); MEAN CORPUSCULAR HEMOGLOB 28.5 pg (26.0-34.0); MEAN CORPUSCULAR VOLUME 87.5 fL (80-100); MONOCYTES 10.5 %; MONOCYTES ABSOLUTE 0.78 10/3/uL (0.21-1.20); NEUTROPHILS 71.6 %; NEUTROPHILS ABSOLUTE 5.32 10/3/uL (2.02-8.40); PLATELET COUNT 370 10/3/uL (150-400); RBC DISTRIBUTION WIDTH 16.5 % (12.0-16.0); RED CELL COUNT 2.95 10/6/uL (4.7-6.1); WHITE BLOOD CELLS 7.4 10/3/uL (4.5-10.5)
[2017-04-13 06:34] LABS: MANUAL DIFF NO %
[2017-04-13 06:44] LABS: BUN (BLOOD UREA NITROGEN) 17 MG/DL (6-23); CALCIUM, SERUM 8.2 MG/DL (8.5-10.4); CHLORIDE, SERUM 107 MMOL/L (96-112); CO2 (CARBON DIOXIDE) 22 MMOL/L (24-34); CREATININE 1.42 MG/DL (0.70-1.30); GFR AFRICAN AMERICAN 56 ML/MIN (>=60); GFR NON AFRICAN AMERICAN 49 ML/MIN (>=60); GLUCOSE, SERUM 120 MG/DL (60-99); POTASSIUM, SERUM 4.4 MMOL/L (3.5-5.3); SODIUM, SERUM 137 MMOL/L (135-148)
[2017-04-13 11:37] LABS: ALBUMIN RELAT % 10.5 %
[2017-04-13] MEDS ORDERED: ZOSYN375 IV (18:08)
[2017-04-13] MEDS ORDERED: DEMA10T PO (18:16)
[2017-04-13] MEDS ORDERED: SPIRO50 PO (18:17)
[2017-04-14 12:01] LABS: IMMUNOGLOBULIN E 65.4 kU/L (0.0-158.0)
[2017-06-04] MEDS ORDERED: TOPXL25 PO (10:44)
[2017-06-04] MEDS ORDERED: LEXAPRO20 PO (10:46)
[2017-06-04] MEDS ORDERED: Z300 PO (10:47)
[2017-06-05] MEDS ORDERED: MAGOX4 PO (11:07)
[2017-06-05] MEDS ORDERED: PROBIOTIC PO (11:08)
[2017-06-05] MEDS ORDERED: ATV.5 PO (11:08)
[2017-08-11] MEDS ORDERED: NORV25 PO (13:21)
== END 2017-04-13 21:19 | disposition home health service (06) | DRG 194 ==
LOC: ER 15:57 → 6NO 22:50
PROVIDERS: Emergency Medicine; Internal Medicine; Nurse Practitioner Family
PROC: 02HV33Z Insertion of Infusion Device into Superior Vena Cava, Percutaneous Approach (ICD-10-PCS; principal; 2017-04-13)
DX: J18.9 Pneumonia, unspecified organism (principal); E87.1 Hypo-osmolality and hyponatremia; N17.9 Acute kidney failure, unspecified; E88.09 Other disorders of plasma-protein metabolism, not elsewhere classified; E11.22 Type 2 diabetes mellitus with diabetic chronic kidney disease; R16.1 Splenomegaly, not elsewhere classified; I48.2 Chronic atrial fibrillation; E87.6 Hypokalemia; N18.3 Chronic kidney disease, stage 3 (moderate); I12.9 Hypertensive chronic kidney disease with stage 1 through stage 4 chronic kidney disease, or unspecified chronic kidney disease; Z79.01 Long term (current) use of anticoagulants; D64.9 Anemia, unspecified; Z95.5 Presence of coronary angioplasty implant and graft; I25.10 Atherosclerotic heart disease of native coronary artery without angina pectoris; Z85.46 Personal history of malignant neoplasm of prostate; Z85.51 Personal history of malignant neoplasm of bladder; Z98.890 Other specified postprocedural states
CPT/HCPCS: 36569; 71275; 74176; 76700; 80048; 80053; 80076; 80202; 81001; 82140; 82272; 82728; 82784; 82785; 83540; 83550; 83605; 83690; 83735; 83880; 83883; 83883-59; 84100; 84132; 84134; 84145; 84155; 84156; 84165; 84166; 85025; 85379; 85610; 86140; 86334; 87040; 87328; 87329; 87449; 87493; 87493-59; 93005; 94640; 94668; 99285; A9270-GY; C1751; J2543; J3370; P9047; Q9967

== ENCOUNTER 2017-04-27 13:33 | Inpatient (IN) | payer OTHER ==
--- NOTE | ~2017-04-27 | CN ---
Consultation Report [facility] [address] [place]. [address] NAME: ANGEL LAMBERT : 41 STATUS : ADM IN [facility]#: [id number] AGE: 71 ADM/REG DATE : 04/27/17 MR#: [id number] REPORT SERV DATE: 04/30/17 DICTATED BY: ROSS ORTIZ DATE: 04/29/17 REPORT STATUS : Draft TRANSCRIBED BY: MODL DATE: 04/29/17 CONSULTATION REPORT DATE OF CONSULTATION: 04/29/2017 REASON FOR CONSULTATION: Anemia. HISTORY OF PRESENT ILLNESS: Mr. Angel Lambert is 71 years old, had a complicated history with multiple hospitalizations over the last four months. He was admitted in January with acute pancreatitis, likely alcohol abuse, developed a large pseudocyst requiring drainage of this in March 2017. On his first admission, his hemoglobin was normal, drifted down during that admission, and again in March, it was normal, but drifted down during that admission. Since then, he has had a course of antibiotics intermittently for abdominal pain, fevers, and was admitted at this time for ongoing abdominal pain. CT scan showed a large collection of inflammatory with gas present along the body of the pancreas that is suspicious for possible infection. During this time, his hemoglobin has drifted down from 11 in March down to 8.1 at this time. He has been evaluated with a normal ferritin, but an iron saturation of just 14%, normal B12 level, normal thyroid function. Peripheral film was also reviewed, does not have a significant for microcytosis. He does have chronic renal insufficiency and his creatinine is 1.6 with creatinine clearance at around 40 to 50. The patient is very concerned about the anemia, particularly given his fatigue and weakness. PAST MEDICAL HISTORY: 1. History of alcohol abuse, acute pancreatitis in January 2017. 2. Pancreatic pseudocyst. 3. Coronary artery disease. 4. Hypertension. 5. History of prostate cancer in 2013, treated with external beam radiation. 6. Bladder cancer in situ, treated with TURB and intravesical chemotherapy. 7. Stage III chronic kidney disease. 8. Atrial fibrillation with atrial appendage thrombosis, on Eliquis. 9. Nephrolithiasis. 10.Gout. 11.Chronic liver disease, presumed. 12.Diabetes mellitus. PAST SURGICAL HISTORY: 1. Status post repair of the pancreatic pseudocyst. 2. Appendectomy. 3. Cholecystectomy. 4. Inguinal hernia repair. SOCIAL HISTORY: He is former heavy alcohol use, denies any since January. Retired. He is . No family is present at this time. Consultation Report [facility] [address] [place]. [address] NAME: ANGEL LAMBERT : 41 STATUS : ADM IN [facility]#: [id number] AGE: 71 ADM/REG DATE : 04/27/17 MR#: [id number] REPORT SERV DATE: 04/30/17 DICTATED BY: ROSS ORTIZ DATE: 04/29/17 REPORT STATUS : Draft TRANSCRIBED BY: ASHANTI DATE: 04/29/17 FAMILY HISTORY: Noncontributory. No family history of GI-related malignancy. HOME MEDICATIONS: Allopurinol, Eliquis, atorvastatin, statin, Wellbutrin, Creon, Lopressor, Protonix, potassium, Aldactone, torsemide, magnesium, and probiotic. REVIEW OF SYSTEMS: review of systems positive for significant fatigue and weakness. Negative for melena or hematochezia. Positive for nausea. Positive for abdominal pain. No chest discomfort. Positive for shortness of breath with exertion. PHYSICAL EXAMINATION: VITAL SIGNS: Temperature 98.7, heart rate of 90, and BP 113/59. HEENT: Pupils are equal, round, and reactive. Oral, no oral lesions. No cervical adenopathy. LUNGS: Clear to auscultation. No wheezes, rales, or rhonchi. CARDIAC: Regular rate and rhythm. Normal S1 and S2. ABDOMEN: Soft, nontender, and nondistended. LAB DATA: Personally reviewed. Reviewed his prior CT scan. ASSESSMENT AND PLAN: Mr. Lambert is 71 years old with anemia developed during his four months of repeated hospitalizations. I reviewed peripheral film and labs. He does have a slightly low iron level, this may be part of the cause. Certainly, his acute illness is likely driving most of this. His chronic kidney disease may be contributing somewhat as well. We discussed that we need his iron level to be up a bit. We discussed oral iron, but he is reluctant given his symptoms, so I am going to give him a dose of IV iron in the hospital. Hopefully, with treatment of the infection, his hemoglobin will come up nicely, and if not, we can consider treatment of ESAs for his chronic kidney disease-related anemia. However, overall, I think it is likely anemia of chronic disease, just is suspected. Anticoagulation, the superior court justice is going to weigh in on anticoagulation for his atrial thrombus. Right now, he is on IV heparin and will likely resume his Eliquis. DBD/MODL Ross Ortiz M.D. / [id number] CC: Nirav Nunes M.D. Consultation Report [address] [address] NAME: DEEPA LAMBERTBRIANNA GORDON : 41 STATUS : ADM IN [facility]#: [id number] AGE: 71 ADM/REG DATE : 04/27/17 MR#: [id number] REPORT SERV DATE: 04/30/17 DICTATED BY: ROSS ORTIZ DATE: 04/29/17 REPORT STATUS : Draft TRANSCRIBED BY: MODDonis DATE: 04/29/17 Ivet Kathleen M.D.
--- NOTE | ~2017-04-27 | CN ---
Consultation Report [facility] [address] [place]. [address] NAME: LIO LAMBERT : 41 STATUS : ADM IN [facility]#: [id number] AGE: 71 ADM/REG DATE : 04/27/17 MR#: [id number] REPORT SERV DATE: 04/29/17 DICTATED BY: JC MEDEIROS DATE: 04/29/17 REPORT STATUS : Draft TRANSCRIBED BY: MODL DATE: 04/29/17 INPATIENT CONSULT NOTE DATE OF CONSULTATION: 04/29/2017 REASON FOR CONSULTATION: Persistent pain and fevers after drainage of pancreatic pseudocyst. HISTORY OF PRESENT ILLNESS: Mr. Lambert is a very pleasant, 71-year-old male with a past medical history most significant for alcohol abuse, who presented in 01/2017 with episode of acute pancreatitis. The patient recovered from his acute episode of pancreatitis but was noted to have development of a large pseudocyst over the next one to two months. The patient ultimately underwent drainage of the pseudocyst with creation of a surgical cyst- gastrostomy by Dr. Ni in 03/2017 where he underwent cholecystectomy and appendectomy at the same time. Since then, the patient has been on a course of antibiotics intermittently for persistent abdominal pain and fevers that he has had since the procedure. The patient was most recently seen by his outpatient provider and sent to the emergency department for further treatment and evaluation. Upon presentation, the patient was noted to have a normal white count of 7.3, hemoglobin was low at 8.4, and platelet count is 294,000. The patient underwent CT scan of the abdomen and pelvis, which showed suggestion of a large collection of inflammation mixed with gas, extending approximately 14 cm x 3.5 cm along the body of the pancreas suggestive of possible necrosis within the previously drained pseudocyst. For this reason, GI was consulted. REVIEW OF SYSTEMS: The patient states that he has persistent pressure-like pain across his upper abdomen. He has had persistent problems with nausea and lack of appetite. Aside from the other points mentioned in the history of present illness, all systems were reviewed and were negative. PAST MEDICAL HISTORY: Includes. 1. History of alcohol abuse with episode of acute pancreatitis in 01/2017. 2. Pancreatic pseudocyst status post surgical cyst-gastrostomy by Dr. Ni. 3. Coronary artery disease. 4. Hypertension. 5. Prostate/bladder cancer, status post chemotherapy and radiation. 6. CKD stage 3. 7. Atrial fibrillation, on Eliquis. 8. Left atrial appendage thrombus. 9. Nonobstructive nephrolithiasis. 10.Hypoalbuminemia. 11.Gout. 12.Presumed chronic liver disease. 13.Apu-kziquxm-asrjrxmss diabetes. FAMILY HISTORY: The patient has no family history of any GI-related malignancy. Consultation Report [address] [place]. [address] NAME: LIO LAMBERT : 41 STATUS : ADM IN [facility]#: [id number] AGE: 71 ADM/REG DATE : 04/27/17 MR#: [id number] REPORT SERV DATE: 04/29/17 DICTATED BY: JC MEDEIROS DATE: 04/29/17 REPORT STATUS : Draft TRANSCRIBED BY: ASHANTI DATE: 04/29/17 SOCIAL HISTORY: The patient is a former heavy alcohol user but has not had any alcohol since 01/2017. No alcohol or illicit substance use recently. ALLERGIES: THE PATIENT HAS NO KNOWN DRUG ALLERGIES. HOME MEDICATIONS: Include: 1. Allopurinol. 2. Eliquis. 3. Atorvastatin. 4. Wellbutrin. 5. Creon. 6. Lopressor. 7. Protonix. 8. Potassium chloride. 9. Aldactone. 10.Torsemide. 11.Magnesium. 12.Probiotic. PHYSICAL EXAMINATION: VITAL SIGNS: Most recent vital signs include a temperature of 97.6, a pulse of 84, blood pressure is 104/60, the patient is saturating 93% on room air. GENERAL INSPECTION: Reveals an elderly male, lying in bed, no apparent distress. HEENT: Head is normocephalic, atraumatic. Normal inspection of the oral mucosa with moist mucous membranes. Sclerae are nonicteric. Pupils are equal and round. NECK: Supple. No lymphadenopathy. HEART: Rate is irregularly irregular. LUNGS: Sounds clear to auscultation bilaterally. ABDOMEN: Soft with tenderness to palpation across the upper quadrants and epigastric area. The patient has normoactive bowel sounds. No masses were palpated. The patient has evidence of recent surgery with surgical scars. EXTREMITIES: No cyanosis, clubbing, or edema. SKIN: No jaundice or rash. NEUROLOGIC: No gross motor deficits. PSYCHIATRIC: He is alert and oriented. Mood and affect are appropriate. Judgment appears to be intact. LABORATORY DATA: Most recent laboratory results include a CBC that demonstrated a white count of 7.1, hemoglobin of 8.1, and a platelet count of 298,000. Comprehensive metabolic panel demonstrated normal electrolytes, BUN was 20, creatinine was 1.58. LFTs were normal. Lipase was normal as well. The patient had iron studies drawn and showed no suggestion of iron deficiency anemia. Consultation Report [facility] [address] [place]. [address] NAME: LIO LAMBERT : 41 STATUS : ADM IN [facility]#: [id number] AGE: 71 ADM/REG DATE : 04/27/17 MR#: [id number] REPORT SERV DATE: 04/29/17 DICTATED BY: JC MEDEIROS DATE: 04/29/17 REPORT STATUS : Draft TRANSCRIBED BY: ASHANTI DATE: 04/29/17 PERTINENT IMAGING: CT of the abdomen was reviewed personally by myself, which showed evidence of an area of mixed gas and inflammation overlying the pancreas, adjacent to the stomach wall. No other significant abnormalities. The patient is status post cholecystectomy. ASSESSMENT AND PLAN: Mr. Lambert is a very pleasant, 71-year-old male with a history of alcoholic pancreatitis and pseudocyst formation, who underwent surgical cyst-gastrostomy one month ago. Now presents with persistent pain and fevers and lack of appetite likely secondary to infected necrosis within the cyst cavity. Would recommend evaluation with EGD to see if the gastrostomy is patent and as well as performing EUS for assessment of cyst cavity contents, although this may be limited given the amount of gas that was seen in the cyst cavity. The patient likely is going to require a prolonged course of antibiotics, somewhere in the vicinity of 68 weeks of continuous for treatment, this may be potentially assisted by drainage as well. If this fails, the patient may require necrosectomy at some point. We will discuss further with Dr. Ni. Thank you very much for this interesting consult. The patient will need to be off his Eliquis for two days prior to any endoscopic procedures being performed. Please call with any questions or concerns or further issues to address. LAURIE/ASHANTI Jc Medeiros MD / [id number] CC: Nirav Nunes M.D. Ivet Kathleen M.D.
--- NOTE | ~2017-04-27 | IDS ---
Interim Discharge Summary [facility] [address] [place]. [address] NAME: LIO LAMBERT : 41 STATUS : ADM IN PAT#: [id number] AGE: 71 ADM/REG DATE : 04/27/17 MR#: [id number] REPORT SERV DATE: 05/05/17 DICTATED BY: RUSTY NEGRETE DATE: 05/04/17 REPORT STATUS : Draft TRANSCRIBED BY: MODL DATE: 05/04/17 ADMISSION DATE: 04/27/2017 DISCHARGE DATE: REASON FOR ADMISSION: This is a 71-year-old male with a history of alcoholic pancreatitis and pancreatic pseudocyst who had undergone drainage of pseudocyst and had a recent admission for concern of infected pancreatic pseudocyst, who had presented to Dr. Kathleen's office for followup, and reports of intermittent fevers, worsening abdominal pain, nausea, vomiting, and diarrhea, and was sent to the [facility] for admission. A CT scan of the abdomen and pelvis which shows considerable stagnant collection of fluid and air bubbles anterior to the pancreas suggestive of necrotic pancreatitis. INTERIM DISCHARGE DIAGNOSES: 1. Alcoholic pancreatitis with pseudocyst, now status post necrosectomy with placement of a nasal pancreatic drainage tube with irrigation, on broad-spectrum IV antibiotics. 2. Atrial fibrillation, on Eliquis at home, which has been held here at the hospital for procedure and has been on heparin drip. 3. Acute kidney injury. 4. Diabetes type 2. 5. Anemia of chronic disease. 6. 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 7. Peripheral edema secondary to hypoalbuminemia. HOSPITAL COURSE: 1. Alcoholic pancreatitis with infected pseudocyst. The patient had a consultation from Dr. Brown and was also seen by Dr. Ni who had previously seen him before. The patient was started on broad-spectrum IV antibiotics, and Infectious Disease was also consulted and he is currently on IV Zosyn. After discussion between Dr. Ni and Dr. Brown, the decision was made to go in and perform an endoscopic ultrasound that would be performed on the , by Dr. Brown. He found closed previous gastrostomy present plugged with necrosis and debris. He would perform necrosectomy of the pancreatic pseudocyst with balloon sweeps and placement of a 7-Polish nasal cystic drain to flush the cyst contents and would run normal saline through the nasal drain at 100 mL an hour. Of note, on admission, the patient may have a normal white blood cell count of 7.3. Blood cultures would be negative. After having the necrosectomy performed by Dr. Brown, the patient would benefit from symptom relief. He had a lot of abdominal pain which was greatly relieved after the procedure was performed. He then developed a little bit of abdominal discomfort related to the fluid that was being flushed through the pancreas, but after the nasal cystic drain was removed today and the irrigation was stopped, the patient was experiencing near pain-free symptoms. The patient has been eating full liquid diet, and tolerating fine. Dr. Brown would like the patient to follow up with Dr. Ni in 4 to 6 weeks to have a repeat CT scan, and then recommended 6 to 8 weeks total of broad-spectrum antibiotics per direction of Infectious Disease. We have ordered for a PICC line to be inserted, and I spoke with Dr. Sanchez, and he said he would be in the morning to address outpatient IV antibiotic orders. 2. Atrial fibrillation: The patient is on Eliquis at home. We had to hold that for the Interim Discharge Summary [facility] [id number] [place]. [address] NAME: LIO LAMBERT : 41 STATUS : ADM IN [facility]#: [id number] AGE: 71 ADM/REG DATE : 04/27/17 MR#: [id number] REPORT SERV DATE: 05/05/17 DICTATED BY: RUSTY NEGRETE DATE: 05/04/17 REPORT STATUS : Draft TRANSCRIBED BY: MODDonis DATE: 05/04/17 procedure and had the patient on heparin drip. I have since today written orders to stop the heparin drip and resume Eliquis. 3. Acute kidney injury: The patient had a creatinine at 2.11 on admission, was on torsemide at home, and that was discontinued and he was given IV fluids and his creatinine would slowly trend down to now 1.20 this morning. 4. Anemia of chronic disease: The patient did have ferritin levels checked, which were normal. His hemoglobin has been stable here at the hospital. On admission, his hemoglobin was 8.4 and today it is 7.9. 5. Peripheral edema secondary to low albumin: The patient was found to have albumin level of 2.4 on admit, it is 1.8 as of yesterday on the . He does have peripheral edema on his hands and in his lower extremities. We have given him sparing doses of diuretic. I gave him torsemide 10 mg on May 02, 2017, and then I have given again today. Plan is to send the patient home without diuretics though. CURRENT MEDICATIONS: 1. Allopurinol 300 mg p.o. daily. 2. Atorvastatin 40 mg p.o. daily. 3. Wellbutrin 150 mg p.o. daily. 4. Sliding scale insulin level 1. 5. Dbukdp-dokzyhmx-qmggluy three capsules p.o. daily. 6. Metoprolol 25 mg p.o. daily. 7. Nystatin swish and swallow. 8. Protonix 40 mg p.o. daily. 9. Zosyn 3.375 g IV q.8 h. CURRENT PLAN: The patient had PICC line inserted by Infectious Disease to address outpatient IV antibiotic orders in the morning. Case Management to arrange home health and outpatient IV antibiotics, and hopefully the patient will be ready for discharge tomorrow and will follow up with Dr. Ni in 4 to 6 weeks two days after having a CT of the abdomen and pelvis repeated and follow up with his primary care, Dr. Kathleen, in one to two weeks. The patient's care to be assumed by Dr. Bai and Dr. New Saenz. TDR/MODL Rusty Negrete APN / [id number] CC: Libby Cruz M.D. William M. Cooney, MD John Gwin Jr., M.D. Interim Discharge Summary [address] [address] NAME: LIO LAMBERT : 41 STATUS : ADM IN [facility]#: [id number] AGE: 71 ADM/REG DATE : 04/27/17 MR#: [id number] REPORT SERV DATE: 05/05/17 DICTATED BY: RUSTY NEGRETE DATE: 05/04/17 REPORT STATUS : Draft TRANSCRIBED BY: ASHANTI DATE: 05/04/17 Libby Hatfield M.D.
--- NOTE | ~2017-04-27 | DS ---
Discharge Summary [facility] [address] [place]. [address] NAME: LIO LAMBERT : 41 STATUS : DIS IN PAT#: [id number] AGE: 71 ADM/REG DATE : 04/27/17 MR#: [id number] REPORT SERV DATE: 05/07/17 DICTATED BY: GIOVANA BRAR DATE: 05/06/17 REPORT STATUS : Draft TRANSCRIBED BY: MODL DATE: 05/06/17 ADMISSION DATE: 04/27/2017 DISCHARGE DATE: 05/06/2017 DISCHARGE DIAGNOSES: 1. Infected necrosis within pancreatic pseudocyst. 2. Acute kidney injury, resolved. 3. Chronic kidney disease 3. 4. Anemia of chronic disease. 5. Chronic atrial fibrillation on Eliquis. 6. Type 2 diabetes. 7. Edema, multifactorial. 8. Hypoalbuminemia, multifactorial. 9. Suspected chronic liver disease with splenomegaly on previous CT imaging. 10.Coronary artery disease with previous percutaneous coronary intervention. 11.Systemic hypertension. 12.Gout. 13.History of bladder cancer, treated. 14.History of prostate cancer, treated. 15.Monoclonal gammopathy of uncertain significance. 16.Nonobstructing left nephrolithiasis. 17.03/20/2017 exploratory laparotomy, pancreatic pseudocyst, gastrostomy with biopsy of pancreatic pseudocyst, cholecystectomy, and appendectomy. 18.Hospitalization 01/2017 with acute pancreatitis, acute kidney injury, alcohol abuse, and suspected alcoholic hepatitis. OPERATIONS AND PROCEDURES: EUS with necrosectomy with balloon sweeps and placement of a 7- Jamaican nasal cystic drain to flush cystic contents, Dr. Brown, 05/01/2017. PRESENT ILLNESS: This is a 71-year-old white male, who was admitted directly from Dr. Ivet Kathleen's office on 04/27/[address] Strickland with: 1. Recurrent infected and/or necrotizing pancreatitis and/or pancreatic pseudocyst. 2. Acute kidney injury, on chronic kidney disease stage 3. 3. Hyponatremia. 4. Sepsis. 5. Oropharyngeal thrush. 6. Diarrhea. 7. Hypoalbuminemia. 8. Atrial fibrillation with history of left atrial appendage thrombus as described on admission history and physical examination. His hospital care from admission through 05/04/[address] Nirav Nunes and Rusty Laws APN with consultations by Dr. Jc Brown, Dr. Ross Ortiz, and Dr. Roland Spear. His hospital course during that time is as outlined on interim summary dictated by Neto Laws APN. Discharge Summary [facility] [place]. [address] NAME: LIO LAMBERT : 41 STATUS : DIS IN PAT#: [id number] AGE: 71 ADM/REG DATE : 04/27/17 MR#: [id number] REPORT SERV DATE: 05/07/17 DICTATED BY: GIOVANA BRAR DATE: 05/06/17 REPORT STATUS : Draft TRANSCRIBED BY: ASHANTI DATE: 05/06/17 HOSPITAL COURSE: 05/05/2017 and 05/06/2017, a PICC line was placed for prolonged home IV antibiotics. He was seen by Physical Therapy, who felt that he could be discharged home without physical therapy. He was seen by Dr. Ross Ortiz to follow up his MGUS and anemia of chronic disease. Dr. Ortiz felt that his capital MGUS could be followed up in six months with repeat studies. He suggested his threshold to transfuse would be a hemoglobin less than 7. He felt that the patient's anemia did not improve post discharge and treatment of his primary problem. He could evaluate further with a bone marrow biopsy. Infectious Disease signed off with recommendation for Zosyn 3.375 g IV every 8 hours by extended infusion through 06/15/2017 with weekly CBC and BMP, fax to Dr. Sanchez. He was cleared for discharge by Dr. Brown with recommendations to follow up with Dr. Abrams in four weeks and Dr. Ni and Dr. Sanchez. On 05/05/2017, he had some anorexia. He had no pain. He had slight nausea. There were no new findings on exam except for some left foot tenderness to palpation. A plain x-ray of his foot was done because of his history of gout and there was no evidence radiographically for gout or for acute traumatic injury. His potassium was 3.3 and creatinine 1.32. He was restarted on low-dose Aldactone for hypokalemia and edema. On 05/06/2017, his PICC line had been placed. His appetite had improved. He was ambulatory and asymptomatic. There were no changes in his exam. His white count was 6.3, hemoglobin 7.7, platelets 333,000. His sodium was 141, potassium 3.5, chloride 112, CO2 of 19, BUN 7, creatinine 1.31, glucose 87. Calcium 8.1, phosphorus 3.4. Albumin 1.9, pre-albumin 9. At this time, it was felt he had achieved a level of improvement and stability, we could be safely discharged home. Followup to be as described. Diet to be low-sodium and total fluid intake to less than 2000 mL per 24 hours. DISCHARGE MEDICATIONS: Allopurinol 300 mg daily, Eliquis 5 mg twice daily, Lipitor 40 mg daily, Wellbutrin 150 mg daily, Creon 36,000 units with meals, metoprolol 12.5 mg daily, Nystatin oral suspension 5 mL p.c. and at bedtime as needed for thrush, Protonix 40 mg daily, Zosyn 3.375 g IV every 8 hours through 06/15/2017 as described, Aldactone 25 mg daily, Demadex 10 mg for weight gain of 2 pounds plus potassium 20 mEq, magnesium OTC one daily, Probiotic one daily. In addition to the above followup, it was recommended that he see Dr. Kathleen next week with review of his laboratory studies and edema for additional medication adjustment if Discharge Summary [address] [address] NAME: LIO LAMBERT : 41 STATUS : DIS IN [facility]#: [id number] AGE: 71 ADM/REG DATE : 04/27/17 MR#: [id number] REPORT SERV DATE: 05/07/17 DICTATED BY: GIOVANA BRAR DATE: 05/06/17 REPORT STATUS : Draft TRANSCRIBED BY: MODL DATE: 05/06/17 needed. Discharge time greater than 30 minutes. DICTATED BY: Giovana Brar M.D. DD/ASHANTI Giovana Brar M.D. / [id number] CC: Libby Camejo M.D.
--- NOTE | ~2017-04-27 | HP ---
History And Physical [place] [id number] [facility] [place]. [address] NAME: LIO TERRAZAS : 41 STATUS : ADM IN [facility]#: [id number] AGE: 71 ADM/REG DATE : 04/27/17 MR#: [id number] REPORT SERV DATE: 04/28/17 DICTATED BY: JONA ROQUE DATE: 04/27/17 REPORT STATUS : Draft TRANSCRIBED BY: MODL DATE: 04/27/17 DATE OF ADMISSION: 04/27/2017 POINT OF ENTRY: Transfer from Dr. Kathleen's office. PRIMARY INFECTIOUS DISEASE DOCTOR: Dr. Sanchez. PRIMARY SURGEON: Dr. Ni. CHIEF COMPLAINT: Fevers, abdominal pain, nausea, and vomiting. HISTORY OF PRESENT ILLNESS: Mr. 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 Kathleen's office with reports of intermittent fevers, worsening abdominal pain, nausea, vomiting, and diarrhea. The patient was admitted to the Hospitalist Service from 04/07/2017 through 04/13/2017 for reports of fevers. Initial workup was concerning for left lower lobe pneumonia. However, per Infectious Disease consultation, Dr. Sanchez felt that the fevers were more likely due to gastrointestinal source such as infected pancreatic pseudocyst. The patient was initially placed on vancomycin and Azactam, and improved; however, was switched over to IV Zosyn and continued to improve. He was discharged on 04/13/2017 with a PICC line with a one week additional course of IV Zosyn, which he completed on 04/20/2017. The patient states that since his discharge approximately two weeks ago, he has continued to have intermittent episodes of abdominal pain as well as intermittent episodes of nausea and vomiting. The patient has also had chills, diaphoresis, and low-grade fevers, most recent being on Thursday of 101.4 degrees Fahrenheit. The patient also has developed some diarrhea. He also states it is very painful and difficult for him to eat solids secondary to pain and thrush; however, he states he has been doing a fairly good job of taking in liquids. He denies any chest pain. Does report some baseline shortness of breath. Denies any troubles with bleeding or changes in urinary output or appearance. When seen in Dr. Kathleen's office earlier this morning, initial vitals were temperature of 101.4 degrees Fahrenheit, pulse of 110 with a blood pressure of 90/58. Labs were undertaken, which showed worsening kidney function as well as a white count of 12,600. CT scan of the abdomen and pelvis was undertaken, which showed a considerable large area of fluid and air bubbles anterior to the pancreatic body, head, and tail concerning for infected necrotic pancreatic pseudocyst. The patient was subsequently directly admitted to the Hospitalist Service. Upon arrival on the floor, the patient's vitals are 96.5 degrees Fahrenheit, pulse of 92, respirations 18, blood pressure 117/61. COMPREHENSIVE REVIEW OF SYSTEMS: Otherwise negative unless listed in history of present History And Physical [address] [address] NAME: LIO TERRAZAS : 41 STATUS : ADM IN [facility]#: [id number] AGE: 71 ADM/REG DATE : 04/27/17 MR#: [id number] REPORT SERV DATE: 04/28/17 DICTATED BY: JONA ROQUE DATE: 04/27/17 REPORT STATUS : Draft TRANSCRIBED BY: ASHANTI DATE: 04/27/17 illness. PREVIOUS MEDICAL HISTORY: 1. 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 2. Infected pancreatic pseudocyst requiring long-term IV antibiotic therapy. 3. History of alcohol abuse. 4. Coronary artery disease, prior PCI. 5. Hypertension. 6. Prostate and bladder cancer, status post chemotherapy and radiation. 7. Chronic kidney disease stage 3, baseline creatinine 1.4 to 1.6. 8. Atrial fibrillation, on Eliquis. 9. Left atrial appendage thrombus. 10.Nonobstructive nephrolithiasis. 11.Hypoalbuminemia. 12.Gout. 13.Presumed chronic liver disease. 14.Hvt-owceeiz-ggeylijjh diabetes type 2 with elevated hemoglobin A1c. SURGICAL HISTORY: 1. Appendectomy. 2. Cholecystectomy. 3. Inguinal hernia repair. 4. Exploratory laparotomy with gastrostomy and pancreatic pseudocyst drainage. ALLERGIES: NO KNOWN DRUG ALLERGIES. HOME MEDICATIONS: 1. Allopurinol 300 mg daily. 2. Eliquis 5 mg b.i.d. 3. Atorvastatin 40 mg daily. 4. Wellbutrin SR 150 mg daily. 5. Creon 36 units with meals. 6. Lopressor 25 mg daily. 7. Protonix 40 mg daily. 8. Potassium chloride 20 mEq b.i.d. 9. Aldactone 50 mg daily. 10.Torsemide 10 mg daily. 11.Magnesium oxide one tab daily. 12.Probiotic one tab daily. SOCIAL HISTORY: Denies any tobacco, alcohol, or illicits. He is a former smoker as well as former heavy alcohol user quit since January. FAMILY MEDICAL HISTORY: Mother with coronary artery disease. Father with dementia. Siblings with prostate cancer. LABS AND IMAGING: These were all obtained from Dr. Kathleen's office. History And Physical [address] [address] NAME: LIO TERRAZAS : 41 STATUS : ADM IN [facility]#: [id number] AGE: 71 ADM/REG DATE : 04/27/17 MR#: [id number] REPORT SERV DATE: 04/28/17 DICTATED BY: JONA ROQUE DATE: 04/27/17 REPORT STATUS : Draft TRANSCRIBED BY: ASHANTI DATE: 04/27/17 1. White count 12.6, hemoglobin is 9.8, hematocrit is 29.8, platelet count is 475. 2. Sodium is 129, potassium 4.3, chloride 96, carbon dioxide 24, BUN 27, creatinine 2.11, glucose is 141, calcium is 9.3, protein is 7.5, albumin is 2.4, bilirubin is 0.5, ALT is 19, AST 19, and alkaline phosphatase is 142. 3. Amylase is 26, ESR is 101. 4. CT scan of the abdomen and pelvis shows still considerable stagnant collection of fluid and air bubbles anterior to the pancreas and this is suggestive of necrotic pancreatitis. No acute GI obstruction. Kidneys nonobstructive. Several small nonobstructing retained stones bilaterally. Gallbladder has been removed. Prostate mildly enlarged. There has been prior intervention. PHYSICAL EXAMINATION: VITAL SIGNS: Temperature is 96.5 degrees Fahrenheit, pulse is 92, respirations 18, saturating 99% on room air, blood pressure 117/61. GENERAL: The patient is awake and alert, in no acute distress, resting comfortably in bed. He is a well-developed, well-nourished male. Family is at bedside. HEENT: Atraumatic and normocephalic. Somewhat dry mucous membranes. Pupils are equal, round, and reactive to light and accommodation. Extraocular eye movements intact. There are some small, whitish-colored patches concerning for oropharyngeal thrush. NECK: No jugular venous distention or carotid bruits. CARDIAC: Irregularly irregular rate and rhythm. No murmurs or gallops. Normal S1, S2. LUNGS: Clear to auscultation bilaterally except some decreased breath sounds in the bases. No wheezes, rhonchi, or crackles. ABDOMEN: Soft. He is tender to palpation over all quadrants, but more so in the periumbilical region. He does not have any rebound, guarding, or rigidity. Hypoactive bowel sounds throughout. EXTREMITIES: Warm and well perfused. No cyanosis, clubbing, or edema. SKIN: Warm and dry. PSYCH: Affect appropriate. NEURO: Alert and oriented x3. Cranial nerves 2 through 12 grossly intact. Speech is normal. Gait not assessed. ASSESSMENT: Mr. Terrazas is a 71-year-old gentleman, who presents with persistent abdominal pain, nausea, vomiting, diarrhea, as well as chills, night sweats, and fevers, and found to have evidence of sepsis as well as CT imaging concerning for infected, necrotizing pancreatitis and/or pancreatic pseudocyst. PROBLEM LIST: 1. Recurrent infected and/or necrotizing pancreatitis and/or pancreatic pseudocyst. 2. Acute kidney injury on chronic kidney disease stage 3. 3. Hyponatremia. 4. Sepsis. 5. Oropharyngeal thrush. 6. Diarrhea. 7. Hypoalbuminemia. 8. Atrial fibrillation with history of left atrial appendage thrombus. History And Physical [address] [address] NAME: LIO TERRAZAS : 41 STATUS : ADM IN [facility]#: [id number] AGE: 71 ADM/REG DATE : 04/27/17 MR#: [id number] REPORT SERV DATE: 04/28/17 DICTATED BY: JONA ROQUE DATE: 04/27/17 REPORT STATUS : Draft TRANSCRIBED BY: MODDonis DATE: 04/27/17 PLAN: 1. Infected and/or necrotizing pancreatitis and pancreatic pseudocyst. We will admit the patient to the Hospitalist Service. Make the patient nothing by mouth for bowel rest. We will consult the patient's primary surgeon and Infectious Disease doctor, Dr. Sanchez and Dr. Ni for assistance. We will initially place the patient on broad- spectrum antibiotics of IV vancomycin and Zosyn. We will obtain stat blood cultures as well as lactic acid level and procalcitonin. 2. Sepsis. The patient meets criteria with the vitals that were obtained at Dr. Kathleen's office of tachycardia, leukocytosis, and fevers checking stat lactic acid level, procalcitonin, blood cultures, placing on IV antibiotics, IV fluids, and also, checking for alternative sources of infection including urinalysis and chest x-ray. 3. Hyponatremia likely secondary to dehydration and poor oral intake as well as SIADH from abdominal pain, nausea, and vomiting, checking appropriate labs. Place on IV fluid hydration. 4. Acute kidney injury on chronic kidney disease stage 3 likely due to dehydration as well as use of nephrotoxic medications. Holding his Demadex and Aldactone. Providing aggressive IV fluid hydration. Checking urinalysis and urine lytes. 5. Thrush. Providing appropriate treatment with oral nystatin. 6. Atrial fibrillation with history of left atrial appendage thrombus. Continuing the patient's home Eliquis at least overnight given history of left atrial appendage thrombus. 7. DVT prophylaxis. The patient will be on Eliquis. CODE STATUS: The patient wished to be full code. JCB/MODL Jona Roque MD / [id number] CC: Wilbert Dominguez M.D. Ivet Kathleen M.D.
--- NOTE | ~2017-04-27 | EGD ---
EGD REPORT [facility] [address] [place]. [address] NAME: ANGEL LAMBERT : 41 STATUS : ADM IN PAT#: [id number] AGE: 71 ADM/REG DATE : 04/27/17 MR#: [id number] REPORT SERV DATE: 05/01/17 DICTATED BY: JC MEDEIROS DATE: 05/01/17 REPORT STATUS : Draft [facility] DATE: 05/01/17 End[facility] Center Patient Name: Angel Lambert Date of : 1945 Attending MD: JC MEDEIROS MD Procedure Date No Time: 05/01/2017 Procedure: Upper EUS Indications: Pancreatic cyst on CT scan Referring MD: DEVI VENTURA JR., MD Medicines: Monitored Anesthesia Care Complications: No immediate complications. Estimated blood loss: Minimal. Procedure: After obtaining informed consent, the endoscope was passed under direct vision. Throughout the procedure, the patient's blood pressure, pulse, and oxygen saturations were monitored continuously. The GIF IT [id number] was introduced through the mouth, and advanced to the second part of duodenum. The upper EUS was accomplished without difficulty. The patient tolerated the procedure well. Findings: Endoscopic Finding : The examined esophagus was normal. There was evidence of a closed previous gastrostomy present on the posterior wall of the stomach. A 0.035 inch x 450 cm straight Dreamwire was passed into the cyst cavity and allowed to coil several times in the pseudocyst under direct vision. The cyst was partially filled with fluid and yellow/black necrotic tissue. Necrosectomy was performed with a 12 mm balloon, requiring multiple intubations of the cyst with removal of large chunks of debris each time. At the conclusion of the procedure, nothing could be seen within the pseudocyst on direct vision, as there appeared to be a large amount of cloudy liquid, pus and debris still present. One 7 Swedish full pigtail nasocystic stent was inserted across the cystgastrostomy tract and brought up through the nose. The cyst cavity was then flushed with contrast and then with approximately 200cc of Normal Saline. Estimated blood loss was minimal. The examined duodenum was normal. Impression: - Closed previous gastrostomy present - plugged with necrosis and debris. - Necrosectomy was performed with balloon sweeps and placement of a 7 Fr nasal cystic drain to flush the cyst contents. EGD REPORT [address] [address] NAME: ANGEL LAMBERT : 41 STATUS : ADM IN [facility]#: [id number] AGE: 71 ADM/REG DATE : 04/27/17 MR#: [id number] REPORT SERV DATE: 05/01/17 DICTATED BY: JC MEDEIROS DATE: 05/01/17 REPORT STATUS : Draft TRANSCRIBED BY: [facility] DATE: 05/01/17 Recommendation: - Return patient to [facility] for ongoing care. - Full liquid diet. - Use broad spectrum antibiotics indefinitely. - Normal Saline through the nasal drain at 100 cc per hour until told to stop by GI or surgery Procedure Code(s): --- Professional --- 33229, Unlisted procedure, pancreas Diagnosis Code(s): --- Professional --- Z98.89, Other specified postprocedural states K86.2, Cyst of pancreas CPT copyright 2013 [employer]. All rights reserved. The codes documented in this report are preliminary and upon copyist review may be revised to meet current compliance requirements. Jc Medeiros MD JC MEDEIROS MD 05/01/2017 1:01 PM This report has been signed electronically. Number of Addenda: 0 Note Initiated On: 05/01/2017 10:45 AM Scope Withdrawal Time 0 hours 0 minutes 0 seconds [address] [place] [id number]
--- NOTE | ~2017-04-27 | PRECARD ---
[facility] [address] [place]. [address] NAME: ANGEL LAMBERT : 41 STATUS : ADM IN [facility]#: [id number] AGE: 71 ADM/REG DATE : 04/27/17 MR#: [id number] REPORT SERV DATE: 04/30/17 DICTATED BY: FAIZA SPEAR DATE: 04/30/17 REPORT STATUS : Draft TRANSCRIBED BY: ASHANTI DATE: 04/30/17 DATE OF ADMISSION: 04/27/2017 HISTORY OF PRESENT ILLNESS: Mr. Angel Lambert is a 71-year-old gentleman, who is admitted with recurrent abdominal discomfort. Mr. Lambert was admitted in 01/2017 with acute pancreatitis, he developed a large pseudocyst, that required drainage. The pancreatitis was attributed to alcohol use. He is admitted now with recurrent abdominal discomfort, he is scheduled for upper endoscopy. While hospitalized in March, he was found to have atrial fibrillation, he also had a left atrial appendage thrombus. He was placed on Eliquis, with plan for eventual cardioversion. He has been doing well from cardiac perspective. He denies chest discomfort. He has no palpitations. He has had no stroke or stroke-like symptoms. He does have a history of diabetes, hypertension as well as coronary artery disease. He had a stent placed remotely in 2012 in [place]. PAST MEDICAL HISTORY: 1. Prior alcohol use. 2. Pancreatic pseudocyst. 3. Hypertension. 4. Prostate cancer. 5. Bladder carcinoma. 6. Chronic kidney disease. MEDICATIONS ON ADMISSION: Allopurinol, Eliquis, Lipitor, Wellbutrin, Creon, Lopressor, Protonix, Zosyn, potassium, Aldactone, Demadex, magnesium, probiotic, nystatin swish and swallow, Protonix. FAMILY HISTORY: Noncontributory. REVIEW OF SYSTEMS: Complete review of systems was obtained, pertinent negative and unremarkable except as noted above and below. All systems addressed. PHYSICAL EXAMINATION: VITAL SIGNS: Blood pressure 120/70, heart rate about 80. GENERAL: Comfortable, in no acute distress. HEENT: No xanthelasma; lips without cyanosis LUNGS: Clear to auscultation, no wheezes, rales or rhonchi; good breath sounds. COR: No JVD or hepatojugular reflux, no murmurs, rubs or gallops, impulse mid clavicular line without carotid or abdominal bruits; normal S1 and S2. ABDOMEN: Distended with diffuse tenderness. Bowel sounds positive, normal activity, masses or hepatosplenomegaly. [facility] [address] [place]. [address] NAME: ANGEL LAMBERT : 41 STATUS : ADM IN [facility]#: [id number] AGE: 71 ADM/REG DATE : 04/27/17 MR#: [id number] REPORT SERV DATE: 04/30/17 DICTATED BY: FAIZA SPEAR DATE: 04/30/17 REPORT STATUS : Draft TRANSCRIBED BY: ASHANTI DATE: 04/30/17 EXTREMITIES: No edema, cyanosis. SKIN: Normal turgor. Ms: Normal muscle strength, without kyphosis/scoliosis. NEURO/PSYCH: Alert and oriented times 4, no apparent anxiety or depression. LABORATORY DATA: White count is 6.9, hematocrit is 25%, platelet count is 306,000. BUN is 14, creatinine 1.3. Telemetry demonstrates atrial fibrillation. EKG, atrial fibrillation, ventricular rate about 90. ASSESSMENT: Mr. Lambert is a 71-year-old gentleman, admitted with abdominal pain, underwent a recent pseudocyst drainage. He is scheduled for upper endoscopy today. There is no cardiac contraindication to the upper endoscopy. I think Eliquis can be stopped for this procedure, it has been stopped already. I also think heparin can be stopped as that is required for this procedure and restarted as soon it is felt to be safe by Gastroenterology. TATYANA/ASHANTI Faiza Spear M.D. / [id number] CC: Libby Cruz M.D.
[2017-04-27 11:57] LABS: CA-19-9 6.3 U/ML (< 37.0)
[2017-04-27 12:45] LABS: CHLORIDE, SERUM 96 MMOL/L (96-112); CO2 (CARBON DIOXIDE) 24 MMOL/L (24-34); POTASSIUM, SERUM 4.3 MMOL/L (3.5-5.3); SODIUM, SERUM 129 MMOL/L (135-148)
[2017-04-27 12:46] LABS: A/G RATIO 0.5 (0.7-1.9); ALBUMIN 2.4 G/DL (3.5-5.0); ALKALINE PHOSPHATASE 142 U/L (45-117); BUN (BLOOD UREA NITROGEN) 27 MG/DL (6-23); CALCIUM, SERUM 9.3 MG/DL (8.5-10.4); CREATININE 2.11 MG/DL (0.70-1.30); GFR AFRICAN AMERICAN 35 ML/MIN (>=60); GFR NON AFRICAN AMERICAN 30 ML/MIN (>=60); GLOBULIN 5.1 G/DL (2.5-4.1); GLUCOSE, SERUM 141 MG/DL (60-99); SGOT(AST) 19 U/L (5-40); SGPT(ALT) 19 U/L (5-65); TOTAL BILIRUBIN 0.5 MG/DL (0-1.2); TOTAL PROTEIN 7.5 G/DL (6.0-8.5)
[2017-04-27 12:47] LABS: FERRITIN 714 NG/ML (26-388)
[~2017-04-27 13:33] MED LIST changes: +COLCRYS0.6 MG PO; +MYCOSTATAB PO; +SPIRO50 PO; +ZOSYN375 IV
[2017-04-27] MEDS ORDERED: ZOSYN375 IV (20:02)
[2017-04-27] MEDS ORDERED: DEMA10T PO (20:04)
[2017-04-27] MEDS ORDERED: CREON DR 36,001 EACH PO (20:04)
[2017-04-27] MEDS ORDERED: KDUR20 PO (20:05)
[2017-04-27] MEDS ORDERED: ELIQUIS 5 MG TAB5 MG PO (20:05)
[2017-04-27] MEDS ORDERED: PROTONIX PO (20:06)
[2017-04-27] MEDS ORDERED: SPIRO50 PO (20:06)
[2017-04-27] MEDS ORDERED: MAGNESIUM OTC PO (20:06)
[2017-04-27] MEDS ORDERED: LIPITOR40 PO (20:07)
[2017-04-27] MEDS ORDERED: LOP25 PO (20:07)
[2017-04-27] MEDS ORDERED: Z300 PO (20:09)
[2017-04-27] MEDS ORDERED: WELLSR150 PO (20:09)
[2017-04-27] MEDS ORDERED: PROBIOTIC OTC PO (20:11)
[2017-04-27 21:42] LABS: LACTATE 1.3 MMOL/L (0.3-2.4)
[2017-04-27 21:49] LABS: FREE T4 1.6 NG/DL (0.76-1.46); ULTRASENSITIVE TSH 1.36 MCIU/ML (0.358-3.740)
[2017-04-27 22:11] LABS: PROCALCITONIN 0.89 ng/mL (<0.5)
[2017-04-28 05:44] LABS: BASOPHILS 0.3 %; BASOPHILS ABSOLUTE 0.02 10/3/uL (0.0-0.16); EOSINOPHILS 1.2 %; EOSINOPHILS ABSOLUTE 0.09 10/3/uL (0.0-0.53); HEMATOCRIT 25.7 % (40.0-51.0); HEMOGLOBIN 8.4 g/dL (13.6-17.8); IMMATURE GRANULOCYTES 0.7 %; IMMATURE GRANULOCYTES ABSOLUTE 0.05 10/3/uL (0.0-0.11); LYMPHOCYTES ABSOLUTE 0.73 10/3/uL (0.67-4.30); MEAN CORPUS HGB CONC 32.7 g/dL (32.0-36.0); MEAN CORPUSCULAR HEMOGLOB 27.6 pg (26.0-34.0); MEAN PLATELET VOLUME 8.7 fL (9.2-13.0); MONOCYTES 12.6 %; MONOCYTES ABSOLUTE 0.92 10/3/uL (0.21-1.20); NEUTROPHILS 75.2 %; NEUTROPHILS ABSOLUTE 5.48 10/3/uL (2.02-8.40); PLATELET COUNT 294 10/3/uL (150-400); RBC DISTRIBUTION WIDTH 15.9 % (12.0-16.0); RED CELL COUNT 3.04 10/6/uL (4.7-6.1); WHITE BLOOD CELLS 7.3 10/3/uL (4.5-10.5)
[2017-04-28 05:49] LABS: MANUAL DIFF NO %; MEAN CORPUSCULAR VOLUME 84.5 fL (80-100)
[2017-04-28 05:55] LABS: CREATININE, URINE 70.9 MG/DL
[2017-04-28 05:57] LABS: A/G RATIO 0.5 (0.7-1.9); BUN (BLOOD UREA NITROGEN) 29 MG/DL (6-23); CALCIUM, SERUM 8.9 MG/DL (8.5-10.4); CHLORIDE, SERUM 102 MMOL/L (96-112); CO2 (CARBON DIOXIDE) 24 MMOL/L (24-34); CREATININE 1.85 MG/DL (0.70-1.30); GFR AFRICAN AMERICAN 41 ML/MIN (>=60); GFR NON AFRICAN AMERICAN 35 ML/MIN (>=60); GLOBULIN 4.2 G/DL (2.5-4.1); SGOT(AST) 25 U/L (5-40); SGPT(ALT) 19 U/L (5-65); SODIUM, SERUM 134 MMOL/L (135-148); TOTAL BILIRUBIN 0.4 MG/DL (0-1.2); TOTAL PROTEIN 6.2 G/DL (6.0-8.5)
[2017-04-28 06:01] LABS: ALKALINE PHOSPHATASE 113 U/L (45-117); GLUCOSE, SERUM 97 MG/DL (60-99)
[2017-04-28 06:02] LABS: LACTATE 1.1 MMOL/L (0.3-2.4)
[2017-04-28 12:58] LABS: IRON BINDING CAPACITY 129 MCG/DL (250-450)
[2017-04-29 05:47] LABS: ALLENS TEST Pos; BE (BASE EXCESS) -2.1 MEQ/L (0 +/- 2.5); CARBOXYHEMOGLOBIN 0.5 % (0-3); HCO3 (ACTUAL BICARBONATE) 20.7 MEQ/L (23-27); HEMOBLOGIN CONTENT 8.4 G/DL (14-18); INSTRUMENT SERIAL # 8083; METHEMOGLOBIN 0.4 % (0-3); O2 CONTENT 11.2 VOL% (18-24); OPERATOR ID 35190; PCO2 (CO2 TENSION) 28 MMHG (35-45); PO2 (O2 TENSION) 73 MMHG (79-93); SAMPLE Arterial; pH 7.49 (7.37-7.43)
[2017-04-29 06:11] LABS: BASOPHILS 0.3 %; BASOPHILS ABSOLUTE 0.02 10/3/uL (0.0-0.16); EOSINOPHILS 2.1 %; EOSINOPHILS ABSOLUTE 0.15 10/3/uL (0.0-0.53); HEMATOCRIT 24.7 % (40.0-51.0); HEMOGLOBIN 8.1 g/dL (13.6-17.8); IMMATURE GRANULOCYTES 0.8 %; IMMATURE GRANULOCYTES ABSOLUTE 0.06 10/3/uL (0.0-0.11); LYMPHOCYTES 7.7 %; LYMPHOCYTES ABSOLUTE 0.55 10/3/uL (0.67-4.30); MANUAL DIFF NO %; MEAN CORPUS HGB CONC 32.8 g/dL (32.0-36.0); MEAN CORPUSCULAR HEMOGLOB 27.7 pg (26.0-34.0); MEAN CORPUSCULAR VOLUME 84.6 fL (80-100); MEAN PLATELET VOLUME 8.8 fL (9.2-13.0); MONOCYTES 16.5 %; MONOCYTES ABSOLUTE 1.18 10/3/uL (0.21-1.20); NEUTROPHILS 72.6 %; NEUTROPHILS ABSOLUTE 5.18 10/3/uL (2.02-8.40); PLATELET COUNT 298 10/3/uL (150-400); RBC DISTRIBUTION WIDTH 15.9 % (12.0-16.0); RED CELL COUNT 2.92 10/6/uL (4.7-6.1); WHITE BLOOD CELLS 7.1 10/3/uL (4.5-10.5)
[2017-04-29 06:28] LABS: % IRON SAT 14 % (20-50); A/G RATIO 0.4 (0.7-1.9); ALBUMIN 1.8 G/DL (3.5-5.0); ALKALINE PHOSPHATASE 120 U/L (45-117); BUN (BLOOD UREA NITROGEN) 20 MG/DL (6-23); CALCIUM, SERUM 8.2 MG/DL (8.5-10.4); CHLORIDE, SERUM 104 MMOL/L (96-112); CO2 (CARBON DIOXIDE) 24 MMOL/L (24-34); CREATININE 1.58 MG/DL (0.70-1.30); FERRITIN 746 NG/ML (26-388); GFR AFRICAN AMERICAN 50 ML/MIN (>=60); GFR NON AFRICAN AMERICAN 43 ML/MIN (>=60); GLOBULIN 4.1 G/DL (2.5-4.1); GLUCOSE, SERUM 104 MG/DL (60-99); IRON BINDING CAPACITY 132 MCG/DL (250-450); IRON, SERUM 18 MCG/DL (35-150); POTASSIUM, SERUM 4.2 MMOL/L (3.5-5.3); SGOT(AST) 29 U/L (5-40); SGPT(ALT) 25 U/L (5-65); SODIUM, SERUM 136 MMOL/L (135-148); TOTAL BILIRUBIN 0.5 MG/DL (0-1.2); TOTAL PROTEIN 5.9 G/DL (6.0-8.5)
[2017-04-29 16:41] LABS: INTERNATIONAL NORMAL RATI 1.6 UNITS (-); PARTIAL THROMBO TIME 31.4 SEC (22.5-37.2); PROTIME (NOT ORD) 18.6 SEC (12.0-14.5)
[2017-04-30 05:48] LABS: BASOPHILS 0.3 %; BASOPHILS ABSOLUTE 0.02 10/3/uL (0.0-0.16); EOSINOPHILS 1.9 %; EOSINOPHILS ABSOLUTE 0.13 10/3/uL (0.0-0.53); HEMATOCRIT 25.1 % (40.0-51.0); HEMOGLOBIN 8.3 g/dL (13.6-17.8); IMMATURE GRANULOCYTES ABSOLUTE 0.07 10/3/uL (0.0-0.11); LYMPHOCYTES 8.1 %; LYMPHOCYTES ABSOLUTE 0.56 10/3/uL (0.67-4.30); MEAN CORPUS HGB CONC 33.1 g/dL (32.0-36.0); MEAN CORPUSCULAR VOLUME 84.8 fL (80-100); MEAN PLATELET VOLUME 8.5 fL (9.2-13.0); MONOCYTES 17.3 %; NEUTROPHILS 71.4 %; NEUTROPHILS ABSOLUTE 4.96 10/3/uL (2.02-8.40); PLATELET COUNT 306 10/3/uL (150-400); RBC DISTRIBUTION WIDTH 16.2 % (12.0-16.0); RED CELL COUNT 2.96 10/6/uL (4.7-6.1); WHITE BLOOD CELLS 6.9 10/3/uL (4.5-10.5)
[2017-04-30 05:53] LABS: MANUAL DIFF NO %
[2017-04-30 06:12] LABS: CALCIUM, SERUM 8.1 MG/DL (8.5-10.4); CHLORIDE, SERUM 106 MMOL/L (96-112); CO2 (CARBON DIOXIDE) 21 MMOL/L (24-34); CREATININE 1.35 MG/DL (0.70-1.30); GFR AFRICAN AMERICAN 60 ML/MIN (>=60); GFR NON AFRICAN AMERICAN 52 ML/MIN (>=60); GLUCOSE, SERUM 112 MG/DL (60-99); POTASSIUM, SERUM 3.7 MMOL/L (3.5-5.3); SODIUM, SERUM 135 MMOL/L (135-148)
[2017-04-30 06:14] LABS: BUN (BLOOD UREA NITROGEN) 14 MG/DL (6-23)
[2017-05-01 07:07] LABS: BASOPHILS 0.3 %; BASOPHILS ABSOLUTE 0.02 10/3/uL (0.0-0.16); EOSINOPHILS 2.4 %; EOSINOPHILS ABSOLUTE 0.15 10/3/uL (0.0-0.53); HEMATOCRIT 22.9 % (40.0-51.0); HEMOGLOBIN 7.4 g/dL (13.6-17.8); IMMATURE GRANULOCYTES 1.4 %; IMMATURE GRANULOCYTES ABSOLUTE 0.09 10/3/uL (0.0-0.11); LYMPHOCYTES 14.1 %; LYMPHOCYTES ABSOLUTE 0.89 10/3/uL (0.67-4.30); MANUAL DIFF NO %; MEAN CORPUS HGB CONC 32.3 g/dL (32.0-36.0); MEAN CORPUSCULAR HEMOGLOB 27.3 pg (26.0-34.0); MEAN CORPUSCULAR VOLUME 84.5 fL (80-100); MEAN PLATELET VOLUME 8.8 fL (9.2-13.0); MONOCYTES ABSOLUTE 0.95 10/3/uL (0.21-1.20); NEUTROPHILS 66.8 %; NEUTROPHILS ABSOLUTE 4.23 10/3/uL (2.02-8.40); PLATELET COUNT 323 10/3/uL (150-400); RBC DISTRIBUTION WIDTH 16.4 % (12.0-16.0); RED CELL COUNT 2.71 10/6/uL (4.7-6.1); WHITE BLOOD CELLS 6.3 10/3/uL (4.5-10.5)
[2017-05-01 07:14] LABS: BUN (BLOOD UREA NITROGEN) 12 MG/DL (6-23); CALCIUM, SERUM 8.2 MG/DL (8.5-10.4); CHLORIDE, SERUM 107 MMOL/L (96-112); CO2 (CARBON DIOXIDE) 21 MMOL/L (24-34); CREATININE 1.33 MG/DL (0.70-1.30); GFR AFRICAN AMERICAN 61 ML/MIN (>=60); GFR NON AFRICAN AMERICAN 53 ML/MIN (>=60); GLUCOSE, SERUM 98 MG/DL (60-99); POTASSIUM, SERUM 3.6 MMOL/L (3.5-5.3); SODIUM, SERUM 137 MMOL/L (135-148)
[2017-05-02 06:13] LABS: BASOPHILS 0.4 %; BASOPHILS ABSOLUTE 0.02 10/3/uL (0.0-0.16); EOSINOPHILS 4.2 %; EOSINOPHILS ABSOLUTE 0.22 10/3/uL (0.0-0.53); HEMATOCRIT 23.4 % (40.0-51.0); HEMOGLOBIN 7.5 g/dL (13.6-17.8); IMMATURE GRANULOCYTES 1.9 %; LYMPHOCYTES 12.5 %; LYMPHOCYTES ABSOLUTE 0.65 10/3/uL (0.67-4.30); MEAN CORPUS HGB CONC 32.1 g/dL (32.0-36.0); MEAN CORPUSCULAR HEMOGLOB 27.5 pg (26.0-34.0); MEAN CORPUSCULAR VOLUME 85.7 fL (80-100); MEAN PLATELET VOLUME 8.5 fL (9.2-13.0); MONOCYTES 12.3 %; MONOCYTES ABSOLUTE 0.64 10/3/uL (0.21-1.20); NEUTROPHILS 68.7 %; NEUTROPHILS ABSOLUTE 3.58 10/3/uL (2.02-8.40); PLATELET COUNT 303 10/3/uL (150-400); RBC DISTRIBUTION WIDTH 16.7 % (12.0-16.0); RED CELL COUNT 2.73 10/6/uL (4.7-6.1); WHITE BLOOD CELLS 5.2 10/3/uL (4.5-10.5)
[2017-05-02 06:14] LABS: MANUAL DIFF NO %
[2017-05-02 06:24] LABS: BUN (BLOOD UREA NITROGEN) 9 MG/DL (6-23); CALCIUM, SERUM 8.2 MG/DL (8.5-10.4); CHLORIDE, SERUM 109 MMOL/L (96-112); CO2 (CARBON DIOXIDE) 20 MMOL/L (24-34); CREATININE 1.27 MG/DL (0.70-1.30); GFR AFRICAN AMERICAN 65 ML/MIN (>=60); GFR NON AFRICAN AMERICAN 56 ML/MIN (>=60); POTASSIUM, SERUM 3.5 MMOL/L (3.5-5.3); SODIUM, SERUM 139 MMOL/L (135-148)
[2017-05-02 06:25] LABS: GLUCOSE, SERUM 120 MG/DL (60-99)
[2017-05-03 05:17] LABS: BASOPHILS 0.4 %; BASOPHILS ABSOLUTE 0.03 10/3/uL (0.0-0.16); EOSINOPHILS ABSOLUTE 0.34 10/3/uL (0.0-0.53); HEMOGLOBIN 8.4 g/dL (13.6-17.8); IMMATURE GRANULOCYTES 2.1 %; IMMATURE GRANULOCYTES ABSOLUTE 0.14 10/3/uL (0.0-0.11); LYMPHOCYTES 15.8 %; LYMPHOCYTES ABSOLUTE 1.07 10/3/uL (0.67-4.30); MEAN CORPUS HGB CONC 31.8 g/dL (32.0-36.0); MEAN CORPUSCULAR HEMOGLOB 27.5 pg (26.0-34.0); MEAN CORPUSCULAR VOLUME 86.3 fL (80-100); MEAN PLATELET VOLUME 8.7 fL (9.2-13.0); MONOCYTES 10.2 %; MONOCYTES ABSOLUTE 0.69 10/3/uL (0.21-1.20); NEUTROPHILS 66.5 %; NEUTROPHILS ABSOLUTE 4.52 10/3/uL (2.02-8.40); RBC DISTRIBUTION WIDTH 16.5 % (12.0-16.0); RED CELL COUNT 3.06 10/6/uL (4.7-6.1); WHITE BLOOD CELLS 6.8 10/3/uL (4.5-10.5)
[2017-05-03 05:20] LABS: HEMATOCRIT 26.4 % (40.0-51.0); MANUAL DIFF NO %; PLATELET COUNT 428 10/3/uL (150-400)
[2017-05-03 05:29] LABS: A/G RATIO 0.5 (0.7-1.9); ALBUMIN 1.8 G/DL (3.5-5.0); BUN (BLOOD UREA NITROGEN) 7 MG/DL (6-23); CALCIUM, SERUM 8.2 MG/DL (8.5-10.4); CHLORIDE, SERUM 110 MMOL/L (96-112); CO2 (CARBON DIOXIDE) 19 MMOL/L (24-34); CREATININE 1.25 MG/DL (0.70-1.30); GFR AFRICAN AMERICAN 66 ML/MIN (>=60); GFR NON AFRICAN AMERICAN 57 ML/MIN (>=60); GLUCOSE, SERUM 102 MG/DL (60-99); POTASSIUM, SERUM 3.6 MMOL/L (3.5-5.3); SGOT(AST) 18 U/L (5-40); SGPT(ALT) 19 U/L (5-65); SODIUM, SERUM 139 MMOL/L (135-148); TOTAL BILIRUBIN 0.3 MG/DL (0-1.2); TOTAL PROTEIN 5.8 G/DL (6.0-8.5)
[2017-05-03 05:30] LABS: ALKALINE PHOSPHATASE 107 U/L (45-117)
[2017-05-04 06:28] LABS: BUN (BLOOD UREA NITROGEN) 7 MG/DL (6-23); CALCIUM, SERUM 8.3 MG/DL (8.5-10.4); CHLORIDE, SERUM 116 MMOL/L (96-112); CO2 (CARBON DIOXIDE) 21 MMOL/L (24-34); GFR AFRICAN AMERICAN 69 ML/MIN (>=60); GFR NON AFRICAN AMERICAN 60 ML/MIN (>=60); GLUCOSE, SERUM 103 MG/DL (60-99); POTASSIUM, SERUM 3.9 MMOL/L (3.5-5.3); SODIUM, SERUM 144 MMOL/L (135-148)
[2017-05-04 06:34] LABS: BASOPHILS 0.5 %; BASOPHILS ABSOLUTE 0.03 10/3/uL (0.0-0.16); EOSINOPHILS 5.9 %; EOSINOPHILS ABSOLUTE 0.33 10/3/uL (0.0-0.53); HEMATOCRIT 26.2 % (40.0-51.0); HEMOGLOBIN 7.9 g/dL (13.6-17.8); IMMATURE GRANULOCYTES 2.3 %; IMMATURE GRANULOCYTES ABSOLUTE 0.13 10/3/uL (0.0-0.11); LYMPHOCYTES 18.3 %; LYMPHOCYTES ABSOLUTE 1.02 10/3/uL (0.67-4.30); MANUAL DIFF NO %; MEAN CORPUS HGB CONC 30.2 g/dL (32.0-36.0); MEAN CORPUSCULAR HEMOGLOB 26.3 pg (26.0-34.0); MEAN CORPUSCULAR VOLUME 87.3 fL (80-100); MEAN PLATELET VOLUME 8.5 fL (9.2-13.0); MONOCYTES 9.9 %; MONOCYTES ABSOLUTE 0.55 10/3/uL (0.21-1.20); NEUTROPHILS 63.1 %; PLATELET COUNT 389 10/3/uL (150-400); RBC DISTRIBUTION WIDTH 16.9 % (12.0-16.0); WHITE BLOOD CELLS 5.6 10/3/uL (4.5-10.5)
[2017-05-05 06:11] LABS: BUN (BLOOD UREA NITROGEN) 7 MG/DL (6-23); CALCIUM, SERUM 8.3 MG/DL (8.5-10.4); CHLORIDE, SERUM 111 MMOL/L (96-112); CO2 (CARBON DIOXIDE) 20 MMOL/L (24-34); CREATININE 1.32 MG/DL (0.70-1.30); GFR AFRICAN AMERICAN 62 ML/MIN (>=60); GFR NON AFRICAN AMERICAN 53 ML/MIN (>=60); GLUCOSE, SERUM 94 MG/DL (60-99); POTASSIUM, SERUM 3.3 MMOL/L (3.5-5.3); SODIUM, SERUM 142 MMOL/L (135-148)
[2017-05-05 06:43] LABS: BASOPHILS 0.9 %; EOSINOPHILS 5.2 %; EOSINOPHILS ABSOLUTE 0.3 10/3/uL (0.0-0.5); HEMATOCRIT 23.8 % (40.0-51.0); HEMOGLOBIN 7.6 g/dL (13.6-17.8); LYMPHOCYTES 16.3 %; LYMPHOCYTES ABSOLUTE 0.9 10/3/uL (0.7-4.3); MEAN CORPUSCULAR HEMOGLOB 27.3 pg (26.0-34.0); MEAN CORPUSCULAR VOLUME 84.9 fL (80-100); MEAN PLATELET VOLUME 7.3 fL (6.8-10.8); MONOCYTES 9.3 %; MONOCYTES ABSOLUTE 0.5 10/3/uL (0.2-1.2); NEUTROPHILS 68.3 %; NEUTROPHILS ABSOLUTE 3.6 10/3/uL (2.0-8.4); PLATELET COUNT 359 10/3/uL (150-400); RBC DISTRIBUTION WIDTH 17.6 % (12.0-16.0); WHITE BLOOD CELLS 5.3 10/3/uL (4.5-10.5)
[2017-05-05 06:44] LABS: MANUAL DIFF NO %; MEAN CORPUS HGB CONC 32.1 g/dL (32.0-36.0)
[2017-05-06 06:22] LABS: BASOPHILS 0.2 %; BASOPHILS ABSOLUTE 0.01 10/3/uL (0.0-0.16); EOSINOPHILS 4.9 %; EOSINOPHILS ABSOLUTE 0.31 10/3/uL (0.0-0.53); HEMOGLOBIN 7.7 g/dL (13.6-17.8); IMMATURE GRANULOCYTES 1.3 %; IMMATURE GRANULOCYTES ABSOLUTE 0.08 10/3/uL (0.0-0.11); LYMPHOCYTES 16.5 %; LYMPHOCYTES ABSOLUTE 1.04 10/3/uL (0.67-4.30); MEAN CORPUS HGB CONC 32.1 g/dL (32.0-36.0); MEAN CORPUSCULAR HEMOGLOB 27.4 pg (26.0-34.0); MEAN CORPUSCULAR VOLUME 85.4 fL (80-100); MEAN PLATELET VOLUME 8.6 fL (9.2-13.0); MONOCYTES 10.1 %; MONOCYTES ABSOLUTE 0.64 10/3/uL (0.21-1.20); NEUTROPHILS ABSOLUTE 4.24 10/3/uL (2.02-8.40); PLATELET COUNT 333 10/3/uL (150-400); RBC DISTRIBUTION WIDTH 17.1 % (12.0-16.0); RED CELL COUNT 2.81 10/6/uL (4.7-6.1); WHITE BLOOD CELLS 6.3 10/3/uL (4.5-10.5)
[2017-05-06 06:23] LABS: MANUAL DIFF NO %
[2017-05-06 06:37] LABS: ALBUMIN 1.9 G/DL (3.5-5.0); BUN (BLOOD UREA NITROGEN) 7 MG/DL (6-23); CALCIUM, SERUM 8.1 MG/DL (8.5-10.4); CHLORIDE, SERUM 112 MMOL/L (96-112); CO2 (CARBON DIOXIDE) 19 MMOL/L (24-34); CREATININE 1.31 MG/DL (0.70-1.30); GFR AFRICAN AMERICAN 62 ML/MIN (>=60); GFR NON AFRICAN AMERICAN 54 ML/MIN (>=60); GLUCOSE, SERUM 87 MG/DL (60-99); PHOSPHORUS, SERUM 3.4 MG/DL (2.5-4.5); POTASSIUM, SERUM 3.5 MMOL/L (3.5-5.3); SODIUM, SERUM 141 MMOL/L (135-148)
[2017-05-06] MEDS ORDERED: NYS500UDL PO (12:59)
[2017-05-06] MEDS ORDERED: ZOSYN375 IV (12:59)
[2017-05-06] MEDS ORDERED: SPIRO25 PO (13:00)
[2017-06-04] MEDS ORDERED: TOPXL25 PO (10:44)
[2017-06-04] MEDS ORDERED: LEXAPRO20 PO (10:46)
[2017-06-04] MEDS ORDERED: Z300 PO (10:47)
[2017-06-05] MEDS ORDERED: MAGOX4 PO (11:07)
[2017-06-05] MEDS ORDERED: ATV.5 PO (11:08)
[2017-06-05] MEDS ORDERED: PROBIOTIC PO (11:08)
[2017-08-11] MEDS ORDERED: NORV25 PO (13:21)
== END 2017-05-06 17:12 | disposition home health service (06) | DRG 853 ==
LOC: CARDCT 13:33 → 6NO 18:15
PROVIDERS: Anesthesiology; Hospitalist; Internal Medicine; Internal Medicine Gastroenterology; Nurse Practitioner Gerontology; Registered Nurse
PROC: BF47ZZZ Ultrasonography of Pancreas (ICD-10-PCS; 2017-05-01)
PROC: 0F9G40Z Drainage of Pancreas with Drainage Device, Percutaneous Endoscopic Approach (ICD-10-PCS; principal; 2017-05-01 12:30)
PROC: 02HV33Z Insertion of Infusion Device into Superior Vena Cava, Percutaneous Approach (ICD-10-PCS; 2017-05-05)
PROC: 4A02X4A Measurement of Cardiac Electrical Activity, Guidance, External Approach (ICD-10-PCS; 2017-05-05)
DX: A41.9 Sepsis, unspecified organism (principal); K85.22 Alcohol induced acute pancreatitis with infected necrosis; N17.9 Acute kidney failure, unspecified; B37.0 Candidal stomatitis; E11.22 Type 2 diabetes mellitus with diabetic chronic kidney disease; K86.2 Cyst of pancreas; E87.1 Hypo-osmolality and hyponatremia; N18.3 Chronic kidney disease, stage 3 (moderate); I51.3 Intracardiac thrombosis, not elsewhere classified; I48.91 Unspecified atrial fibrillation; D47.2 Monoclonal gammopathy; E11.9 Type 2 diabetes mellitus without complications; D63.1 Anemia in chronic kidney disease; R19.7 Diarrhea, unspecified; F10.10 Alcohol abuse, uncomplicated; I25.10 Atherosclerotic heart disease of native coronary artery without angina pectoris; R60.9 Edema, unspecified; Z79.02 Long term (current) use of antithrombotics/antiplatelets; Z90.49 Acquired absence of other specified parts of digestive tract; Z92.21 Personal history of antineoplastic chemotherapy; Z92.3 Personal history of irradiation; Z85.46 Personal history of malignant neoplasm of prostate; Z95.5 Presence of coronary angioplasty implant and graft; Z85.51 Personal history of malignant neoplasm of bladder; Z87.442 Personal history of urinary calculi
CPT/HCPCS: 36415; 36569; 71020; 73630-LT; 74176; 76001; 80048; 80053; 80069; 82150; 82330; 82570; 82607; 82728; 82805; 82962; 83540; 83550; 83605; 83615; 83690; 83880; 83930; 83935; 84132; 84134; 84145; 84300; 84439; 84443; 84484; 85025; 85610; 85652; 85730; 86301; 87040; 87205; 87328; 87329; 87493; 87493-59; 93005; 97161-GP; A9270-GY; C1751; C9113; G0463; J0330; J1750; J1940; J2405; J2543; J3370; Q9967